=== PATIENT | male | born 1965 | race African-American/Black ===

== ENCOUNTER 2020-05-23 14:23 | Emergency (ER) | payer OTHER, SELFPAY ==
--- NOTE | ~2020-05-23 | XR_ITS ---
EXAMINATION: XR chest 1V portable INDICATION: Transient alteration of awareness TECHNIQUE: Portable AP chest at 1733 hours COMPARISON: None available FINDINGS: The lungs are free of acute opacities. There is no pleural effusion or pneumothorax. The he art size is normal. There are partially imaged changes of cervical fusion. IMPRESSION: 1. No acute cardiopulmonary abnormality. Reviewed, dictated and finalized at location A. NCT COMMUNICATIONS FACULTY MEMBER
--- NOTE | ~2020-05-23 | CT_ITS ---
EXAMINATION: CT brain wo con DATE: 05/23/2020 18:09 INDICATION: Altered mental status TECHNIQUE: Computed tomography (CT) of the head was performed without intravenous contrast. Sagittal and coronal reconstructions were performed. The mA was adjusted according to patient size. Iterative reconstruction technique was employed. The dose-length product was 681.00 mGy-cm. COMPARISON: None FINDINGS: No acute intracranial hemorrhage, acute infarction or abnormal extra axial fluid collection. There is mild scattered white matter hypoattenuation consistent with chronic small vessel ischemic disease. Ventricles are normal and symmetric. No mass/mass effect. The orbits, paranasal sinuses and mastoid a ir cells are normal. IMPRESSION: 1. No acute intracranial process. 2. Mild scattered white matter hypoattenuation consistent with chronic small vessel ischemic disease. Reviewed, dictated and finalized at location A. EWORK DEVELOPER IMPRESSION: 1. No acute intracranial process. 2. Mild scattered white matter hypoattenuation consistent with chronic small ve ssel ischemic disease.
[2020-05-23 14:23] VITALS: BP 95/60; PULSE 60; RESP 10; O2SAT 99
--- NOTE | 2020-05-23 14:28 | ECG_ITS ---
Measurements Intervals [place] Rate: 59 P: 63 [place]: 161 QRS: -52 QRSD: 131 T: 70 QT: 399 QTc: 398 Interpretive Statements SINUS BRADYCARDIA INTRAVENTRICULAR CONDUCTION DELAY BORDERLINE ST-T WAVE ABNORMALITY- HIGH LATERAL LEADS BASELINE ARTIFACT- I, II, AVR, AVL BORDERLINE ECG Electronically Signed On 05-23-2020 16:02:02 MECHANICAL ASSEMBLER by Chadwick Banks D.O.
[2020-05-23 14:35] LABS: Glucose Point of Care 120 (65-105)
[2020-05-23 15:10] VITALS: BP 122/86; PULSE 56; RESP 12; O2SAT 98
[2020-05-23] MEDS: SODIUM CHLORIDE 0.9% IV 1,000 ML 999 ML IV CONT ×2 (15:10→16:57)
--- NOTE | 2020-05-23 15:27 | PC.NURSE ---
Patient refusing to have blood drawn or urine collected at this time. patient is alert x3 at this time
--- NOTE | 2020-05-23 15:56 | ED.GENADULT ---
HPI - General Adult General Chief complaint: Altered Mental Status Stated complaint: Altered mental status Time Seen by Provider: 05/23/20 14:40 History of Present Illness HPI narrative: Patient is a 54-year-old gentleman who presents the emergency department chief complaint of altered mental status. Patient was found to have a blood sugar of 74 he was given dextrose in the field by EMS on arrival to the emergency department currently the patient states he has no complaints. Patient actually states that he wishes to go home and does not wish to have any further testing. Related Data Allergies Allergy/AdvReac Type Severity Reaction Status Date / Time No Known Allergies Allergy Unverified 10/15/16 15:33 Review of Systems Review of Systems: Narrative: A 10 system review of systems was completed on the patient and is negative except for what is stated in the HPI. Nursing and ancillary documentation was reviewed. PMFSH Comments Patient has prior history of diabetes history of heart failure CVA reflux spondylolisthesis Social history the patient is currently a resident of a local [facility] doing rehab Exam Narrative: Exam Narrative: GENERAL: Well-appearing, well-nourished, and in no acute distress. HEAD: Normocephalic, atraumatic. EYES: PERRLA and EOMI. ENT: Nares clear, no rhinorrhea or epistaxis. Mucous membranes moist. NECK: Supple. CHEST: Clear to auscultation. No respiratory distress. HEART: Regular rate and rhythm. No murmur heard. Normal peripheral pulses. ABDOMEN: Soft, nontender, nondistended, normal active bowel sounds. EXTREMITIES: Normal range of motion. No edema. SKIN: Warm, dry, no rash. NEURO: No focal deficits. Alert and oriented x3. PSYCH: Normal mood and affect. Course Vital Signs Vital signs: Vital Signs Pulse Rate 60 05/23/20 14:23 Respiratory Rate 10 L 05/23/20 14:23 Blood Pressure 95/60 L 05/23/20 14:23 Pulse Oximetry 99 05/23/20 14:23 Pulse Rate 78 05/23/20 18:42 Respiratory Rate 18 05/23/20 18:42 Blood Pressure 91/69 L 05/23/20 18:42 Pulse Oximetry 98 05/23/20 18:42 Medical Decision Making Vital Signs Vital Signs: Vital Signs Pulse Rate 60 05/23/20 14:23 Respiratory Rate 10 L 05/23/20 14:23 Blood Pressure 95/60 L 05/23/20 14:23 Pulse Oximetry 99 05/23/20 14:23 Pulse Rate 78 05/23/20 18:42 Respiratory Rate 18 05/23/20 18:42 Blood Pressure 91/69 L 05/23/20 18:42 Pulse Oximetry 98 05/23/20 18:42 Lab Data Result diagrams: 05/23/20 17:11 05/23/20 17:11 Labs: Lab Results 05/23/20 05/23/20 05/23/20 Range/Units 14:31 16:53 16:53 WBC (4.5-10.0) K/mm3 RBC (4.6-6.20) M/mm3 Hgb (14.0-18.0) g/dL Hct (42.0-52.0) % MCV (80-100) fl MCH (26-34) pg MCHC (32-36) g/dl RDW (11.5-14.5) % Plt Count (150-375) k/mm3 MPV (7.4-10.4) fl Immature Gran % (Auto) (0-0.5) % Neut % (Auto) (45.5-73.1) % Lymph % (Auto) (18.3-44.2) % [place] % (Auto) (2.6-8.5) % Eos % (Auto) (0-4.4) % Baso % (Auto) (0.2-1.2) % Lymph # (Auto) (0.9-3.2) K/mm3 [place] # (Auto) (0.1-0.6) K/mm3 Eos # (Auto) (0-0.3) K/mm3 Baso # (Auto) (0.0-0.1) K/mm3 Abs Immat Gran (auto) (0.00-0.031) K/mm3 Absolute Neuts (auto) (1.3-6.7) K/mm3 Absolute Nucleated RBC (0.0-0.012) K/mm3 Nucleated RBC % (0.0-0.2) % Sodium (137-145) mmol/L Potassium (3.4-5.0) mmol/L Chloride (98-107) mmol/L Carbon Dioxide (22-30) mmol/L Anion Gap (8-16) mmol/L BUN (9-20) mg/dL Creatinine (0.7-1.3) mg/dL Estim Creat Clear Calc ml/min Estimated GFR (59 - ) Glucose (75-110) mg/dL POC Capillary Glucose 120 H (65-105) mg/dl Calcium (8.4-10.2) mg/dL Total Bilirubin (0.2-1.3) mg/dL AST (17-59) U/L ALT (4-50) U/L Alkaline Phosphatase (38-126) U/L Troponin I (0.000-0.034) ng/mL
[2020-05-23 17:04] LABS: Add Urine Microscopic? YES; Appearance Urine Cloudy (Clear); Bacteria Urine Trace /hpf; Bilirubin Urine 1+ (Negative); Blood Urine 1+ (Negative); Color Urine Amber (Yellow); Glucose Urine UA Negative (Negative); Ketones Urine Negative (Negative); Leukocyte Esterase Ur 3+ LEU/UL (Negative); Mucus Urine Rare /lpf; Nitrate Urine Negative (Negative); Protein Urine 2+ mg/dL (Negative); Squamous Epithelial Cell Urine Occasional /hpf (Few); WBC Urine >75 /hpf
[2020-05-23 17:15] LABS: Amphetamine Screen Urine Negative (Negative); Barbiturate Screen Urine Negative (Negative); Benzodiazepines Screen Urine Negative (Negative); Cannabinoid Screen Urine Positive (Negative); Cocaine Screen Urine Negative (Negative); Methadone Screen Urine Negative (Negative); Opiate Screen Urine Positive (Negative); Phencyclidine Screen Urine Negative (Negative)
[2020-05-23 17:17] LABS: Basophils Percent Auto 0.3 % (0.2-1.2); Eosinophils Absolute Auto 0.1 K/mm3 (0-0.3); Eosinophils Percent Auto 0.9 % (0-4.4); Hematocrit 34.6 % (42.0-52.0); Hemoglobin 10.8 g/dL (14.0-18.0); Immature Granulocyte Absolute 0.04 K/mm3 (0.00-0.031); Immature Granulocyte Percent A 0.3 % (0-0.5); Lymphocytes Absolute Auto 1.72 K/mm3 (0.9-3.2); Lymphocytes Percent Auto 14.7 % (18.3-44.2); Mean Corpuscular HGB Conc 31.2 g/dl (32-36); Mean Corpuscular Hemoglobin 29.4 pg (26-34); Mean Corpuscular Volume 94.3 fl (80-100); Mean Platelet Volume 10.9 fl (7.4-10.4); Monocytes Absolute Auto 0.9 K/mm3 (0.1-0.6); Monocytes Percent Auto 7.9 % (2.6-8.5); Neutrophils Absolute Auto 8.9 K/mm3 (1.3-6.7); Neutrophils Percent Auto 75.9 % (45.5-73.1); Platelet Count Result 238 k/mm3 (150-375); Red Blood Count 3.67 M/mm3 (4.6-6.20); Red Cell Distribution Width 14.8 % (11.5-14.5); White Blood Count 11.7 K/mm3 (4.5-10.0)
[2020-05-23 17:30] LABS: Alanine Aminotransferase 23 U/L (4-50); Alkaline Phosphatase 84 U/L (38-126); Anion Gap 7 mmol/L (8-16); Aspartate Amino Transferase 49 U/L (17-59); Bilirubin,Total 0.8 mg/dL (0.2-1.3); Blood Urea Nitrogen 39 mg/dL (9-20); Calcium 9.3 mg/dL (8.4-10.2); Carbon Dioxide 26 mmol/L (22-30); Chloride 108 mmol/L (98-107); Estimated CRCL calculation 33 ml/min; Estimated Glomerular Filt Rate 29; Glucose 92 mg/dL (75-110); Potassium 5.1 mmol/L (3.4-5.0); Sodium 141 mmol/L (137-145)
[2020-05-23] MEDS: SODIUM CHLORIDE 0.9% IV 1,000 ML 1000 ML (18:02)
[2020-05-23 18:17] VITALS: BP 86/44; PULSE 72; RESP 18; O2SAT 98
[2020-05-23 18:20] LABS: Troponin I < 0.012 ng/mL (0.000-0.034)
[2020-05-23 18:25] LABS: Ethanol < 10 mg/dL (<10)
[2020-05-23 18:42] VITALS: BP 91/69; PULSE 78; RESP 18; O2SAT 98
--- NOTE | 2020-05-23 18:58 | PC.NURSE ---
Patient ripped out IV at this time, reporting that he did not need the IV any more.
[2020-05-23 18:59] VITALS: BP 109/59; PULSE 74; RESP 17; O2SAT 98
--- NOTE | 2020-05-23 19:03 | PC.NURSE ---
Lizzy attempted to call to give report, no answer at this time.
[2020-05-23] MEDS: WATER, STERILE FOR INJECTION 10 ML VIAL XX (19:21)
== END 2020-05-23 19:20 ==
PROVIDERS: Emergency Provider Emergency Medicine; PCP Internal Medicine
DX: N39.0 Urinary tract infection, site not specified (principal); E11.649 Type 2 diabetes mellitus with hypoglycemia without coma; Z86.73 Personal history of transient ischemic attack (TIA), and cerebral infarction without residual deficits; I50.9 Heart failure, unspecified
CPT/HCPCS: 36415; 70450; 71045; 80053; 80307; 81001; 82948; 84484; 85025; 87077; 87086; 87088; 87186; 93005; 96360; 96361; 99284; J0696; J7030

== ENCOUNTER 2020-08-08 16:22 | Emergency (ER) | payer OTHER, SELFPAY ==
--- NOTE | ~2020-08-08 | US_ITS ---
EXAMINATION: US arterial ankle brachial ind DATE: 08/08/2020 17:51 INDICATION: Peripheral vascular disease risk factors of diabetes, hypercholesterolemia and smoking wh o presents with lower limb pain and ulcerations at the left castillo and great toes. TECHNIQUE: Segmental pressures and plethysmographic and Doppler waveforms of the brachial and lower e xtremity arteries were obtained. COMPARISON: None. FINDINGS: Right and left brachial artery pressures of 177 mm Hg and 164 mm Hg, respectively, are concordant (no rmal difference <= 30 mmHg). The right ankle-brachial index (CATARINA) is 0.54 (normal >= 0.9-1.0). The right great toe-brachial index (TBI) is 0.69 (normal >= 0.65). Arterial Doppler waveforms are biphasic and parvus et tardus with bro adened systolic peaks and delayed upstrokes at the right posterior tibial and dorsalis pedis arteries . The left CATARINA is 0.55. The left TBI is 0.70. Arterial Doppler waveforms are biphasic with borderline u pstrokes. IMPRESSION: 1. Discordant findings with moderately decreased bilateral ABIs but normal bilateral TBIs. Although T BIs are generally considered less susceptible to artifactual increased due to medial wall calcificati on, the arterial waveforms particularly on the right would indicate significant arterial occlusive di sease. Reviewed, dictated and finalized at location A. IMPRESSION: 1. Discordant findings with moderately decreased bilateral ABIs but normal bila teral TBIs. Although TBIs are generally considered less susceptible to artifact ual increased due to medial wall calcification, the arterial waveforms particul trish on the right would indicate significant arterial occlusive disease.
--- NOTE | ~2020-08-08 | XR_ITS ---
EXAMINATION: XR foot RT min 3V DATE: 08/08/2020 18:36 INDICATION: Diabetic ulceration TECHNIQUE: Dorsoplantar, two oblique and lateral views of the right foot were obtained. COMPARISON: None. FINDINGS: Alignment is normal. No fracture. Joint spaces are normal. Diffuse osteopenia. No evident osteolysis. Soft tissues are unremarkable. IMPRESSION: 1. Diffuse osteopenia. No acute osseous abnormality. Reviewed, dictated and finalized at location A.
--- NOTE | ~2020-08-08 | US_ITS ---
EXAMINATION: US venous doppler [facility] DATE: 08/08/2020 17:52 INDICATION: Lower limb pain TECHNIQUE: Grayscale ultrasound images without and with compression and Doppler ultrasound images of the bilateral lower extremity veins were obtained. COMPARISON: None. FINDINGS: The visualized portions of right common femoral vein, profunda (deep) femoral vein, femoral vein, pop liteal vein, posterior tibial veins, peroneal veins, gastrocnemius vein and greater saphenous vein ou tflow are patent. The visualized portions of left common femoral vein, profunda femoral vein, femoral vein, popliteal v ein, posterior tibial veins, peroneal veins, gastrocnemius vein and greater saphenous vein outflow ar e patent. IMPRESSION: 1. No deep venous thrombosis in either lower limb. Reviewed, dictated and finalized at location A.
[2020-08-08 16:31] VITALS: BP 134/111; PULSE 59; RESP 14; TEMP 36.6; O2SAT 99
--- NOTE | 2020-08-08 16:40 | PC.NURSE ---
ED MD at bedside for assessment, arrives from [place] for ?bilat arterial doppler studies to evaluate for PAD, pt has non-healing ulcer to outer R foot, bilat pedal pulses present and pt can feel sensation. Pt is paraplegic, uses electric WC to get around. Pt denies SOB, non-labored respirations. Pt declines changing into a gown, ED MD aware
--- NOTE | 2020-08-08 17:13 | ED.EXTPRO ---
HPI - Extremity Problem General Chief complaint: Extremity Problem,Nontraumatic Stated complaint: poss blood clot Time Seen by Provider: 08/08/20 16:34 Source: patient Mode of arrival: EMS History of Present Illness HPI Narrative: This is a 55 year old paraplegic male who presents from [place] for evaluation of an abnormal arterial doppler .Patient is unsure about why he is in ER. Patient reports he has long standing bilateral leg pain that has been present for years. His pain is worse with position. He denies chest pain or sob. He does have leg numbness and arm numbness weakness due to cervical spine surgery years ago. He is currently being evaluated by wound care for a wound to right lateral foot. Related Data Allergies Allergy/AdvReac Type Severity Reaction Status Date / Time No Known Allergies Allergy Unverified 10/15/16 15:33 Review of Systems Review of Systems: All systems reviewed & are unremarkable except as noted in HPI and below PMFSH Past Medical History Medical History (Updated 08/08/20 @ 19:39 by Jeanette Cazares MD) Depression Diabetes mellitus GERD (gastroesophageal reflux disease) Hypertension Paraplegia Surgical History Surgical History (Updated 08/08/20 @ 19:33 by Jeanette Cazares MD) H/O neck surgery Social History Social History (Updated 08/08/20 @ 19:34 by Jeanette Cazares MD) Smoking status: Current every day smoker Exam Const: General: no acute distress and alert Orientation/consciousness: patient oriented x3 Eyes: EOM: EOMs intact bilaterally Resp: Effort & Inspection: normal respiratory effort and no retractions Auscultation: clear to auscultation bilaterally Cardio: Rate: regular rate Rhythm: regular rhythm Heart sounds: no murmurs GI: GI Palp: Yes Soft to palpation, No Tenderness to palpation present (GI) and No Guarding due to palpation present (GI) Auscultation: normal bowel sounds Skin: General skin exam: normal color Rashes: no rashes Neuro: General: patient oriented x3 Other: paraplegic, movement for right arm, Extrem: Other: bilateral leg swelling, able to doppler bilateral DP, PT, bilateral feet are warm , 3 cm right lateral foot ulceration, no drainage Course Consultations Consultation #1: I spoke with Dr. Kvng smith about patient. I discussed patient does have arterial vascular disease in which he needs outpatient evaluation by vascular surgery. He has not acute disease at this time. He has pulses in bilateral feet. Date: 08/08/20 Time: 18:45 Vital Signs Vital signs: Vital Signs Temperature 97.9 F 08/08/20 16:31 Pulse Rate 59 L 08/08/20 16:31 Respiratory Rate 14 08/08/20 16:31 Blood Pressure 134/111 H 08/08/20 16:31 Pulse Oximetry 99 08/08/20 16:31 Temperature 97.9 F 08/08/20 16:31 Pulse Rate 65 08/08/20 17:50 Respiratory Rate 14 08/08/20 17:50 Blood Pressure 134/111 H 08/08/20 16:31 Pulse Oximetry 100 08/08/20 17:50 MDM - Extremity (Nontraumatic) Lab Data Result diagrams: 08/08/20 18:09 08/08/20 18:09 Labs: Lab Results 08/08/20 08/08/20 08/08/20 Range/Units 18:09 18:09 18:09 WBC 6.9 (4.5-10.0) K/mm3 RBC 3.94 L (4.6-6.20) M/mm3 Hgb 11.8 L (14.0-18.0) g/dL Hct 36.6 L (42.0-52.0) % MCV 92.9 (80-100) fl MCH 29.9 (26-34) pg MCHC 32.2 (32-36) g/dl RDW 13.2 (11.5-14.5) % Plt Count 240 (150-375) k/mm3 MPV 10.8 H (7.4-10.4) fl Immature Gran % (Auto) 0.1 (0-0.5) % Neut % (Auto) 49.9 (45.5-73.1) % Lymph % (Auto) 37.4 (18.3-44.2) % [place] % (Auto) 9.0 H (2.6-8.5) % Eos % (Auto) 3.3 (0-4.4) % Baso % (Auto) 0.3 (0.2-1.2) % Lymph # (Auto) 2.59 (0.9-3.2) K/mm3 [place] # (Auto) 0.6 (0.1-0.6) K/mm3 Eos # (Auto) 0.2 (0-0.3) K/mm3 Baso # (Auto) 0.0 (0.0-0.1) K/mm3 Abs Immat Gran (auto) 0.01 (0.00-0.031) K/mm3 Absolute Neuts (auto) 3.5 (1.3-6.7)
--- NOTE | 2020-08-08 17:40 | PC.NURSE ---
Pt returned from imaging, states I think they said I'll need surgery to open up my arteries , non-labored respirations and denies SOB
[2020-08-08 17:50] VITALS: PULSE 65; RESP 14; O2SAT 100
--- NOTE | 2020-08-08 18:04 | PC.NURSE ---
Pt trying to leave to smoke a cigarette outside, states he cannot stay in bed. Educated pt and he received medications that made him sleepy and not safe to ambulate. Receiving banana bag
[2020-08-08 18:15] LABS: Basophils Percent Auto 0.3 % (0.2-1.2); Eosinophils Absolute Auto 0.2 K/mm3 (0-0.3); Eosinophils Percent Auto 3.3 % (0-4.4); Hematocrit 36.6 % (42.0-52.0); Hemoglobin 11.8 g/dL (14.0-18.0); Immature Granulocyte Absolute 0.01 K/mm3 (0.00-0.031); Immature Granulocyte Percent A 0.1 % (0-0.5); Lymphocytes Absolute Auto 2.59 K/mm3 (0.9-3.2); Lymphocytes Percent Auto 37.4 % (18.3-44.2); Mean Corpuscular HGB Conc 32.2 g/dl (32-36); Mean Corpuscular Hemoglobin 29.9 pg (26-34); Mean Corpuscular Volume 92.9 fl (80-100); Mean Platelet Volume 10.8 fl (7.4-10.4); Monocytes Absolute Auto 0.6 K/mm3 (0.1-0.6); Neutrophils Absolute Auto 3.5 K/mm3 (1.3-6.7); Neutrophils Percent Auto 49.9 % (45.5-73.1); Platelet Count Result 240 k/mm3 (150-375); Red Blood Count 3.94 M/mm3 (4.6-6.20); Red Cell Distribution Width 13.2 % (11.5-14.5); White Blood Count 6.9 K/mm3 (4.5-10.0)
[2020-08-08 18:24] LABS: Alanine Aminotransferase 15 U/L (4-50); Albumin Level 3.6 g/dL (3.5-5.1); Alkaline Phosphatase 69 U/L (38-126); Anion Gap 4 mmol/L (8-16); Aspartate Amino Transferase 20 U/L (17-59); Bilirubin,Total 0.2 mg/dL (0.2-1.3); Blood Urea Nitrogen 14 mg/dL (9-20); Calcium 8.9 mg/dL (8.4-10.2); Carbon Dioxide 31 mmol/L (22-30); Chloride 106 mmol/L (98-107); Creatine Kinase 90 U/L (55-170); Estimated CRCL calculation 97 ml/min; Estimated Glomerular Filt Rate > 60; Glucose 165 mg/dL (75-110); Potassium 3.8 mmol/L (3.4-5.0); Sodium 141 mmol/L (137-145)
[2020-08-08 18:27] LABS: Partial Thromboplastin Time 32.1 SECONDS (22.3-36.8)
[2020-08-08 18:39] LABS: Prothrombin Time 13.5 Seconds (11.1-14.7)
[2020-08-08 20:00] VITALS: BP 173/79; PULSE 58; RESP 16; O2SAT 100
--- NOTE | 2020-08-08 20:37 | PC.NURSE ---
made contact with [employer] [employer] and [facility] to transfer pt back to [facility]. both companies decline. st accepted with [facility]
[2020-08-08] MEDS: HYDROcodone/acetaminophen (*CRX) 10-325 MG TABLET 1 TAB PO (21:24)
--- NOTE | 2020-08-08 21:58 | PC.NURSE ---
maciel has arrived and is aware pt is going to [place]
[2020-08-08 22:08] VITALS: BP 149/81; PULSE 68; RESP 16; O2SAT 98
== END 2020-08-08 22:10 ==
PROVIDERS: Emergency Provider General Practice; PCP Internal Medicine
DX: I70.203 Unspecified atherosclerosis of native arteries of extremities, bilateral legs (principal); E11.51 Type 2 diabetes mellitus with diabetic peripheral angiopathy without gangrene; G82.20 Paraplegia, unspecified; K21.9 Gastro-esophageal reflux disease without esophagitis; I10 Essential (primary) hypertension; F17.200 Nicotine dependence, unspecified, uncomplicated; M85.871 Other specified disorders of bone density and structure, right ankle and foot
CPT/HCPCS: 36415; 73630; 80053; 82550; 85025; 85610; 85730; 93922; 93970; 99283; 99284; A9270

== ENCOUNTER 2022-01-20 01:42 | Inpatient (IN) | payer OTHER, SELFPAY ==
[2022-01-20] VITALS (52 sets, daily range): BP systolic 98–172; BP diastolic 52–100; PULSE 57–113; RESP 9–24; TEMP 36.4–37; O2SAT 94–100; BMI 28.3
--- NOTE | 2022-01-20 | ECHO_ITS ---
Patient Info Name: Jas Rodriguez Age: 56 years : 1965 Gender: Male Ht: 72 in Wt: 208 lbs BSA: 2.21 m2 HR: 73 bpm BP: 148 / 80 mmHg Heart Rhythm: Sinus Rhythm Technical Quality: Good Exam Date: 01/20/2022 4:15 PM Exam Location: [facility] Card Pulmonary Patient Status: Inpatient Admit Date: 01/20/2022 Staff Ordering Physician: Tori Sotelo NP Trouble Clerk: Toribio Cota RDCS Attending Provider: Tracie Munson MD Referring Physician: Deepak WOODRUFF; Exam Type: CA echo doppler color flow Study Info Indications - CVA Complete two-dimensional, color flow and Doppler transthoracic echocardiogram is performed. Summary 1. Complete two-dimensional, color flow and Doppler transthoracic echocardiogram is performed. 2. Normal left ventricular size with mild concentric left ventricular hypertrophy. Good systolic function of all segments with ejection fraction greater than 70%. Grade 2 diastolic dysfunction is present. 3. No significant valve disease. 4. Normal sinus rhythm. Left Ventricle Left ventricular chamber dimension is normal. Left ventricular systolic function is normal, estimated at >70%. There is mildly increased left ventricular wall thickness. Left ventricular septal wall motion is normal. The left ventricular diastolic function is grade II diastolic dysfunction. Right Ventricle Right ventricular chamber dimension is normal. Right ventricular systolic function is normal. Left Atria Left atrial chamber dimension is mildly enlarged. Right Atria Right atrial chamber dimension is normal. Aortic Valve The aortic valve is trileaflet. There is mild aortic valve sclerosis. There is no aortic valve stenosis. There is no aortic valve regurgitation. Pulmonic Valve The pulmonic valve is normal. There is no pulmonic valve stenosis. There is no pulmonic regurgitation. Mitral Valve The mitral valve has normal leaflets. There is no mitral valve stenosis. There is no mitral valve regurgitation. Tricuspid Valve The tricuspid valve leaflets are normal. There is no significant tricuspid valve stenosis. There is no tricuspid valve regurgitation. No pulmonary hypertension, estimated pulmonary arterial systolic pressure is Empty. Pericardium/Pleural The pericardium appears normal. There is no pericardial effusion. Inferior Vena Cava Not well visualized inferior vena cava with >50% collapse upon inspiration consistent with Empty right atrial pressure, Empty. Aorta The aortic root size at the sinus of Valsalva is normal. The prox ascending aorta size is normal. Left Ventricular Outflow Tract Name Value Normal LVOT 2D LVOT Diameter 2.0 cm LVOT Doppler LVOT Peak Gradient 4 mmHg LVOT Mean Gradient 2 mmHg LVOT VTI 23 cm LVOT VTI/AV VTI Ratio 0.9 LVOT Stroke Volume 73 ml LVOT CO 6.1 l/min LVOT CI 2.8 l/min/m2 Mitral Valve ----
--- NOTE | ~2022-01-20 | CT_ITS ---
EXAMINATION: CT abdomen pelvis wo con DATE: 01/20/2022 05:43 INDICATION: Renal failure. TECHNIQUE: Computed tomography (CT) of the abdomen and pelvis was performed without intravenous contr ast. Automated exposure control and iterative reconstruction technique were employed. The dose-length product was 1260.45 mGy-cm. COMPARISON: None. FINDINGS: The visualized portions of the lung bases demonstrate mild atelectasis. No pleural effusion . The heart size is normal. No pericardial effusion. The liver, gallbladder, spleen, pancreas, and ad renal glands are normal. The kidneys are normal in size. No hydronephrosis. There is no urolithiasis. Stool distends the rectum, which demonstrates wall thickening, consistent with stercoral colitis. Th ere is diverticulosis of the colon without evidence of diverticulitis. The appendix is normal. There are no pathologically enlarged lymph nodes. There is no free intraperitoneal fluid. There is a left i nguinal hernia containing fat. There is mild lumbar spondylosis. IMPRESSION: 1. No hydronephrosis. 2. Stercoral colitis. Reviewed, dictated and finalized at location A.
--- NOTE | ~2022-01-20 | XR_ITS ---
EXAMINATION: XR chest 1V portable DATE: 01/23/2022 05:54 INDICATION: Acute kidney injury. Chest pain. TECHNIQUE: A single frontal view of the chest was obtained. COMPARISON: Chest single view 01/20/2022, CT abdomen and pelvis 01/20/2022 FINDINGS: There is mild atelectasis in the lower lung zones. No pleural effusion or pneumothorax. The heart size is normal. IMPRESSION: 1. Mild atelectasis in the lower lung zones. Reviewed, dictated and finalized at location A.
--- NOTE | ~2022-01-20 | XR_ITS ---
EXAMINATION: XR chest 1V portable DATE: 01/20/2022 02:14 INDICATION: Altered mental status. TECHNIQUE: A single frontal view of the chest was obtained. COMPARISON: Chest single view 05/23/2020, CT abdomen and pelvis 01/20/2022 FINDINGS: There is mild atelectasis in the lower lung zones. No pleural effusion or pneumothorax. The heart size is normal. IMPRESSION: 1. Mild atelectasis in the lower lung zones. Reviewed, dictated and finalized at location A.
--- NOTE | ~2022-01-20 | XR_ITS ---
EXAMINATION: XR barium swallow modified DATE: 01/21/2022 09:19 INDICATION: Difficulty eating TECHNIQUE: Modified barium esophagram was performed by myself who administered fluoroscopy, in conju nction with speech pathologist who administered barium in varying consistencies as per speech patholo gist documentation. This was recorded on tape. A single fluoroscopic spot image was recorded. Fluoros copy exposure time was 1.3 minutes. The DAP for this procedure was 1.811 Gycm2. FINDINGS: Oral stage: Adequate function. Pharyngeal phase: Adequate function. Laryngeal penetration: None. Aspiration: None. Laryngeal sensitivity: Not applicable. IMPRESSION: Unremarkable modified barium swallow. Please refer to speech pathologist findings and [facility] feeding recommendations. Reviewed, dictated and finalized at location A. IMPRESSION: Unremarkable modified barium swallow. Please refer to speech pathol ogist findings and specific feeding recommendations.
--- NOTE | ~2022-01-20 | NM_ITS ---
EXAMINATION: NM renal flow and function DATE: 01/23/2022 15:23 INDICATION: Acute kidney injury with worsening. TECHNIQUE: 8 mCi Tc-99m MAG3 was administered IV. The patient was scanned in the supine position. A posterior abdominal radionuclide angiogram was obtained. A subsequent time course of static images of the kidneys, ureters, and bladder was obtained. COMPARISON: CT abdomen and pelvis 01/20/2022 FINDINGS: The posterior abdominal radionuclide angiogram and sequential static images show normal siz e, position, and morphology of the kidneys. Peak renal parenchymal uptake was 1 min in right kidney a nd 2 min in left kidney (normal peak 3-5 minutes). The relative early renal uptake was 60% on the ri ght and 40% on the left (<40% is abnormal). No abnormalities of the ureters or bladder are seen. T1/2 for clearance of activity from the right kidney and proximal collecting system was >>20 minutes. T1/2 for clearance of activity from the left kidney and proximal collecting system was >>20 minutes. IMPRESSION: 1. Symmetric kidney function. 2. Delayed contrast clearance bilaterally, consistent with decreased renal function. Reviewed, dictated and finalized at location A. IMPRESSION: 1. Symmetric kidney function. 2. Delayed contrast clearance bilaterally, consistent with decreased renal fun ction.
--- NOTE | ~2022-01-20 | XR_ITS ---
EXAMINATION: XR abdomen/kub 1V DATE: 01/23/2022 10:21 INDICATION: Stercoral colitis TECHNIQUE: A supine view of the abdomen on 2 radiographs was obtained. COMPARISON: CT dated 01/20/2022 FINDINGS: 7.5 cm diameter ball of stool at the rectum. There is small amount of oral contrast material scattere d throughout the colon likely due to a prior modified barium swallow study. Contrast delineates multi ple colonic diverticula but primarily along the ascending colon. No dilated loops of gas-filled small bowel to suggest obstruction. Visualized lung bases are clear. IMPRESSION: 1. Persistent 7.5 cm diameter ball of stool at the rectum. No bowel obstruction. 2. Diverticulosis. Reviewed, dictated and finalized at location B. IMPRESSION: 1. Persistent 7.5 cm diameter ball of stool at the rectum. No bowel obstruction . 2. Diverticulosis.
--- NOTE | ~2022-01-20 | MR_ITS ---
EXAMINATION: MR brain/brain stem wo con DATE: 01/21/2022 09:46 INDICATION: Lethargy. TECHNIQUE: Magnetic resonance imaging (MRI) of the brain and brainstem was performed without intraven ous contrast. COMPARISON: Head CT 01/20/2022 FINDINGS: There are scattered areas of nonspecific increased T2-weighted signal intensity in the cere bral white matter and kimi. There is no intracranial hemorrhage, acute infarction, or abnormal intrac ranial mass lesion. There is an old lacunar infarct in left thalamus. The ventricles are normal in si ze. The orbits are normal. There is a mucous retention cyst in right maxillary sinus. There is a smal l left mastoid effusion. IMPRESSION: 1. Old lacunar infarct in left thalamus. 2. Moderate nonspecific cerebral white matter disease and pontine disease, which likely represents ch ronic small vessel ischemic disease. Reviewed, dictated and finalized at location A. IMPRESSION: 1. Old lacunar infarct in left thalamus. 2. Moderate nonspecific cerebral white matter disease and pontine disease, whic h likely represents chronic small vessel ischemic disease.
--- NOTE | ~2022-01-20 | US_ITS ---
EXAMINATION: US renal BI DATE: 01/20/2022 16:00 INDICATION: Acute renal failure TECHNIQUE: Multiple grayscale and Doppler ultrasound images of the kidneys were obtained. COMPARISON: None. FINDINGS: The right kidney measures 10.5 x 6.3 x 7.1 cm. The left kidney measures 11.3 x 5.4 x 5.6 cm . The kidneys demonstrate normal parenchymal echogenicity. There is no hydronephrosis. The bladder de monstrates diffuse wall thickening. IMPRESSION: 1. Normal kidneys without hydronephrosis. 2. Diffuse wall thickening of the urinary bladder which could reflect cystitis versus chronic outlet obstruction. Reviewed, dictated and finalized at location A.
--- NOTE | ~2022-01-20 | US_ITS ---
EXAMINATION: US carotid duplex BI DATE: 01/20/2022 16:01 INDICATION: Weakness. Encephalopathy with confusion. TECHNIQUE: Grayscale, color Doppler, and pulsed Doppler images of the cervical carotid arteries were obtained. The degree of vessel stenosis is placed in one of the following categories: normal, <50%, 5 0-69%, >=70% but less than near-occlusion, near-occlusion, or total occlusion. Note that percent sten osis relative to normal distal artery lumen diameter is indirectly measured from velocity measurement s as described by Beto, et al. Radiology 2003; 229:340-346. COMPARISON: None. FINDINGS: RIGHT: The right common carotid artery (CCA) peak systolic velocity (PSV) is 95 cm/s. The right internal car otid artery (ICA) PSV is 190 cm/s. The right ICA end-diastolic velocity (EDV) is 25 cm/s. The right I CA/CCA PSV ratio is 2.0. Grayscale and color Doppler images yield an estimate of 50-69% diameter redu ction from plaque in the ICA. The external carotid artery (ECA) PSV is 164 cm/s. There is antegrade f low in the right vertebral artery. LEFT: The left CCA PSV is 175 cm/s. The left ICA PSV is 225 cm/s. The left ICA EDV is 18 cm/s. The left ICA /CCA PSV ratio is 1.3. Grayscale and color Doppler images yield an estimate of 50-69% diameter reduct ion from plaque in the ICA. The ECA PSV is 114 cm/s. There is antegrade flow in the left vertebral ar adia. IMPRESSION: 1. 50-69% stenosis in the right internal carotid artery. 2. 50-69% stenosis in the left internal carotid artery. Reviewed, dictated and finalized at location B.
--- NOTE | ~2022-01-20 | CT_ITS ---
EXAMINATION: CT brain wo con DATE: 01/20/2022 02:20 INDICATION: Altered mental status. TECHNIQUE: Computed tomography (CT) of the head was performed without intravenous contrast. The mA wa s adjusted according to patient size. Iterative reconstruction technique was employed. The dose-lengt h product was 681.00 mGy-cm. COMPARISON: Head CT 05/23/2020 FINDINGS: There is no intracranial hemorrhage, acute infarction, or abnormal intracranial mass lesion . The ventricles are normal in size. The orbits are normal. There is mucosal thickening in the parana taye sinuses. There is a small left mastoid effusion. IMPRESSION: 1. Normal brain. Reviewed, dictated and finalized at location A. IMPRESSION: 1. Normal brain.
--- NOTE | 2022-01-20 01:47 | ECG_ITS ---
Measurements Intervals [place] Rate: 60 P: 67 TN: 152 QRS: -54 QRSD: 107 T: 29 QT: 393 QTc: 394 Interpretive Statements SINUS RHYTHM LEFT ANTERIOR FASCICULAR BLOCK [QRS AXIS <= -45, QR IN I, RS IN II] COMPARED TO ECG 05/23/2020 14:31:37 THE RATE IS FASTER Electronically Signed On 01-20-2022 13:15:20 CDT by Yudelka Hartmann M.D.
[2022-01-20 03:26] LABS: Basophils Percent Auto 0.1 % (0.2-1.2); Eosinophils Absolute Auto 0.1 K/mm3 (0-0.3); Eosinophils Percent Auto 1.6 % (0-4.4); Hematocrit 32.7 % (42.0-52.0); Hemoglobin 10.1 g/dL (14.0-18.0); Immature Granulocyte Absolute 0.03 K/mm3 (0.00-0.031); Immature Granulocyte Percent A 0.4 % (0-0.5); Lymphocytes Absolute Auto 1.86 K/mm3 (0.9-3.2); Lymphocytes Percent Auto 23.3 % (18.3-44.2); Mean Corpuscular HGB Conc 30.9 g/dl (32-36); Mean Corpuscular Hemoglobin 27.8 pg (26-34); Mean Corpuscular Volume 90.1 fl (80-100); Mean Platelet Volume 11.4 fl (7.4-10.4); Monocytes Absolute Auto 0.6 K/mm3 (0.1-0.6); Monocytes Percent Auto 7.3 % (2.6-8.5); Neutrophils Absolute Auto 5.4 K/mm3 (1.3-6.7); Neutrophils Percent Auto 67.3 % (45.5-73.1); Platelet Count Result 249 k/mm3 (150-375); Red Blood Count 3.63 M/mm3 (4.6-6.20); Red Cell Distribution Width 15.1 % (11.5-14.5)
[2022-01-20] MEDS: SODIUM CHLORIDE 0.9% IV 1,000 ML 999 ML IV CONT ×2 (03:28→05:19)
--- NOTE | 2022-01-20 03:28 | PC.NURSE ---
Dr Bailey at bedside while RN placed IV access in foot per verbal order from Dr Bailey. Tolerated well.
--- NOTE | 2022-01-20 03:35 | PC.NURSE ---
Attempted to call lab and spoke with Ruth Ann. She told me to call lab assitant. Called shop laborer and told will be few hours before labs can be obtained. Informed charge nurse, ramon, director housekeeping, and Dr Bailey
--- NOTE | 2022-01-20 03:36 | ED.WEAKNESS ---
HPI - Weakness General Chief complaint: Weakness Stated complaint: DOESN'T FEEL WELL Time Seen by Provider: 01/20/22 01:50 History of Present Illness HPI Narrative: This is a 56-year-old male with past medical history of paraplegia status post cervical spine surgery, brought in by EMS from his halfway because he doesn't feel well. He does not elaborate further. He denies chest pain, abdominal pain, vomiting, diarrhea or cough. EMS reports the patient's last known well was 3 days ago. The patient's nurse noted he seemed more lethargic than usual. Vital signs were reported as within normal limits in route with a fingerstick in the 80s. Related Data Allergies Allergy/AdvReac Type Severity Reaction Status Date / Time No Known Allergies Allergy Unverified 10/15/16 15:33 Review of Systems Review of Systems: CONSTITUTIONAL: Generalized malaise denies fever, chills, or sweats. EYES: Denies visual changes, redness, or discharge. ENT: Denies rhinorrhea, congestion, sore throat, or otalgia. CARDIOVASCULAR: Denies chest pain, palpitations, or edema. RESPIRATORY: Denies cough or dyspnea. GASTROINTESTINAL: Denies abdominal pain, nausea, vomiting, or diarrhea. GENITOURINARY: Denies dysuria or hematuria. SKIN: Denies rash or itching. MUSCULOSKELETAL: Denies back pain, joint pain, or myalgia. NEUROLOGIC: Denies headache, numbness, dizziness, or weakness. PSYCHIATRIC: Denies anxiety or depression. PMFSH Past Medical History Medical History (Updated 01/20/22 @ 07:33 by Sinan Bailey MD) Depression Diabetes mellitus GERD (gastroesophageal reflux disease) Hypertension Paraplegia Surgical History Surgical History (Updated 08/08/20 @ 19:33 by Jeanette Cazares MD) H/O neck surgery Social History Social History (Updated 08/08/20 @ 19:34 by Jeanette Cazares MD) Smoking status: Current every day smoker Exam Narrative: GENERAL: Well-developed, well-nourished, appears fatigued HEAD: Normocephalic, atraumatic. EYES: PERRLA and EOMI. pupils 2 mm and equal bilaterally ENT: Nares clear, no rhinorrhea or epistaxis. Mucous membranes moist. Oropharynx without tonsillar hypertrophy exudate or other lesions. NECK: Supple. No adenopathy or masses. No carotid bruits or JVD CHEST: Clear to auscultation. No respiratory distress. No wheezes rales or rhonchi HEART: Regular rate and rhythm. No murmur heard. Normal peripheral pulses. ABDOMEN: Soft, nontender, nondistended, normal active bowel sounds. EXTREMITIES: Strength in the bilateral upper extremities 5-/5 bilaterally the patient does not fully follow commands normal range of motion. No noted movement of the bilateral lower extremities with extension noted at the ankles; there is a healing wound noted to the superior aspect of the right great toe without purulent drainage or active bleeding no edema. SKIN: A 1 cm stage III, healing ulcer is noted over the sacrum; a fentanyl patch is noted on the anterior left abdominal skin; skin otherwise warm, dry, without rash. NEURO: No focal deficits. Alert and oriented x3. PSYCH: Normal mood and affect. Course Course Emergency Course: 03:28 - Nursing staff reports patient does not have IV access. 3 attempts were made by me with ultrasound-guided IV placement. Despite successful IV placement, all locations immediately infiltrated. Nursing staff was able to place a 22-gauge IV in the patient's foot. We will continue axis in this location with a plan to consult for PICC or midline placement. 05:29 - CT head unremarkable. Urine drug screen positive for cannabinoids. Patient negative for influenza and COVID. Chest x-ray unremarkable on my review. Troponin negative. Creatinine 5.9 with BUN of 51. Bicarb however is 23. I suspect the patient has new renal failure, however this appears to have been progressing over the past year. Potassium 5.7, however EKG is not concerning for peaked T waves. After multiple attempts I was able to contact the
[2022-01-20 03:38] LABS: Ethanol < 10 mg/dL (<10)
[2022-01-20 03:40] LABS: Alanine Aminotransferase 16 U/L (6-50); Alkaline Phosphatase 96 U/L (38-126); Anion Gap 11 mmol/L (8-16); Aspartate Amino Transferase 23 U/L (17-59); Bilirubin,Total 0.5 mg/dL (0.2-1.3); Blood Urea Nitrogen 51 mg/dL (9-20); Calcium 9.2 mg/dL (8.4-10.2); Carbon Dioxide 23 mmol/L (22-30); Chloride 107 mmol/L (98-107); Estimated CRCL calculation 19 ml/min; Estimated Glomerular Filt Rate 14; Glucose 88 mg/dL (65-110); Potassium 5.7 mmol/L (3.4-5.0); Sodium 141 mmol/L (137-145)
--- NOTE | 2022-01-20 03:42 | PC.NURSE ---
When pt arrived noted Fentanyl patch to left abdomen. Patch removed per verbal orders from Dr Bailey. Patch removed and Yanci HAWKINS noted waste.
[2022-01-20 03:44] LABS: Add Urine Microscopic? YES; Appearance Urine Cloudy (Clear); Bilirubin Urine Negative (Negative); Blood Urine Negative (Negative); Color Urine Yellow (Yellow); Glucose Urine UA Negative (Negative); Ketones Urine Negative (Negative); Leukocyte Esterase Ur Negative LEU/UL (Negative); Mucus Urine Rare /lpf; Nitrate Urine Negative (Negative); Protein Urine Negative (Negative); RBC Urine 0-2 /hpf (0-2); Specific Grav Ur 1.014 (1.001-1.035); Squamous Epithelial Cell Urine Few /hpf (Few); Urobilinogen Urine Negative mg/dL (<2.0); WBC Urine 0-3 /hpf
[2022-01-20 03:48] LABS: Troponin I 0.018 ng/mL (0.000-0.034)
[2022-01-20 03:52] LABS: Amphetamine Screen Urine Negative (Negative); Barbiturate Screen Urine Negative (Negative); Benzodiazepines Screen Urine Negative (Negative); Cannabinoid Screen Urine Positive (Negative); Cocaine Screen Urine Negative (Negative); Methadone Screen Urine Negative (Negative); Opiate Screen Urine Negative (Negative); Phencyclidine Screen Urine Negative (Negative)
--- NOTE | 2022-01-20 03:56 | PC.NURSE ---
Attempted to call [facility]. Called for baseline BUN and creatinine on pt. Was placed on hold and briefly got to talk to a Tarnella. Placed back on hold and call then ignored. Notified Dr Bailey
[2022-01-20 04:02] LABS: Influenza A QL RT-PCR Negative (Negative); Influenza B QL RT-PCR Negative (Negative); SARS-CoV-2 RNA PCR Negative
[2022-01-20 04:07] LABS: Thyroid Stimulating Hormone 0.558 uIU/mL (0.465-4.680)
--- NOTE | 2022-01-20 06:07 | PC.NURSE ---
[facility] Was told, ER is not a priority for lab. If they can help they will otherwise they won't
--- NOTE | 2022-01-20 08:32 | ADMGEN ---
This patient, Jas Rodriguez Sr., was admitted to [facility] Surg Room 302-01. Patient/family oriented to hospital policies and general routines including ID bracelet, bed and alarms, visiting hours, pain management, procedures, bathroom and other care routines, personal items, smoking policy, room service/diet, and visiting hours. Information on how to activate the Rapid Response Team has been discussed. Patient/Family are encouraged to report perceived risks to care and to ask questions if they do not understand what they are told or what they should do.
[2022-01-20 09:49] LABS: Lactic Acid Reflex 1.7 mmol/L (0.7-2.0)
--- NOTE | 2022-01-20 10:19 | PC.NURSE ---
patient very lethargic. not answering many questions. assessed as well as possible. other information taken from chart sent from [facility]
--- NOTE | 2022-01-20 11:08 | PM.CNNEP ---
Assessment and Plan Assessment and plan (1) CINDY (acute kidney injury): Code(s): N17.9 - Acute kidney failure, unspecified Status: Acute Assessment and Plan: baseline creatinine normal about a year ago unclear over what period of time renal decline occurred... CT imaging without obstruction hold diuretics and CHASIDY-I check urine electrolytes and urine eosinophils trial of IVFs follow trend of repeat labs and UOP (2) Hyperkalemia: Code(s): E87.5 - Hyperkalemia Status: Acute Assessment and Plan: presumably secondary to CINDY/ARF likely worsened by diuretics and CHASIDY-I use follow repeat labs use lokelma or other medical management if continues to rise (3) Hypertension: Code(s): I10 - Essential (primary) hypertension Status: Chronic Assessment and Plan: reasonable control for now follow trend of hemodynamics (4) Diabetes: Code(s): E11.9 - Type 2 diabetes mellitus without complications Status: Chronic Assessment and Plan: follow accuchecks glycemic control Will continue to follow. History of Present Illness Reason for Consult Consult date: 01/20/22 Reason for consult: acute renal failure Chief Complaint Chief complaint: Renal Failure History of Present Illness Narrative: The patient is a 56-year-old male with a past medical history as outlined below who presented to [facility] Emergency room from his nursing facility for further evaluation of not feeling well. It is difficult to get a full incomplete history from the patient so great majority of the information I have obtained is from review of the electronic medical record as well as discussion with the ER physician yesterday evening. The patient is self does not give any specific complaints with regard to chest pain, abdominal pain, vomiting, diarrhea, palpitations, shortness of breath, cough, or any other symptoms per se. His nursing facility did report that he seemed ill bit more lethargic than normal and given his complaints of not feeling well, he was sent to the ER for further evaluation Workup and evaluation in the emergency room demonstrated the patient to be hemodynamically stable but routine blood test demonstrated numerous abnormalities. His chemistry showed an elevated BUN and creatinine of 51 and 5.3, respectively in association with potassium of 5.7. His CBC was only remarkable for anemia with a hemoglobin of 10.1 and hematocrit 32.7. His urinalysis was unremarkable although his urine drug screen was positive for cannabinoids. CT scan of his head was unremarkable and abdominal CT scan demonstrated no evidence of obstructive uropathy or hydronephrosis but was significant for sterile coral colitis. His chest xray was otherwise unremarkable as well. The assumption was dehydration was playing a role with regard to his renal dysfunction and he was started on IV fluids with subsequent admission to the hospital for further evaluation therapy. Renal consultation was requested due to his presumed acute kidney injury/acute renal failure. Unfortunately, both his nursing facility as well as here at [facility] demonstrate a normal creatinine approximately a year ago with no intervening labs available for review. With regard to risk factors for kidney disease, he is on lisinopril as well as diuretic therapy along with metformin with a history of hypertension, diabetes, and congestive heart failure. No reported new medications, IV contrast exposure, or new antibiotics that I am aware of. No reported history of dysuria, hematuria, or CVA/flank pain ( although with his quadriplegia, I am unclear if the patient would be aware of any of the symptoms). Currently, the time my visit, he does not appear to be acute distress. Review of Systems Review of Systems: As per HPI. [facility] Past Medical History Medical History (Updated 01/21/22 @ 18:12 by Jesica Pereira
[2022-01-20] MEDS: SODIUM CHLORIDE 0.9% IV 1,000 ML 75 ML IV CONT (11:44)
[2022-01-20 12:37] LABS: Glucose Point of Care 99 mg/dl (65-105)
[2022-01-20] MEDS: NEOMYCIN/POLYMYXIN/BACITRACIN OINTMENT 15 GM TUBE 1 APPLIC TOPICAL (12:50)
--- NOTE | 2022-01-20 13:54 | PM.IMHP ---
H&P: HPI History of Present Illness Date/Time: 01/20/22 13:54 Chief Complaint: Weakness Narrative: This is a 56-year-old male patient that comes from [facility] who has a history of paraplegia status post cervical spine surgery. The [facility] because he just did not feel well. He denied any chest pain abdominal pain vomiting diarrhea or cough. His last known normal day feeling well was 3 days ago. The patient appeared to be more lethargic than normal. H&H is 10.1 and 32.7. His potassium was found to be 5.7. BUN is 51 creatinine 5.3. Patient's urine drug screen was positive for cannabinoids. Influenza a and B as well as COVID are negative. Head CT was read as normal brain. Abdominal pelvis CT was read as no hydronephrosis. Stercoral colitis. Chest x-ray was read as mild atelectasis in the lower lung zones. Patient was given IV fluids in the emergency room. Nephrology has been consulted. The patient is being admitted to observation status on the date of service of 01/20/2022. Review of Systems Review of Systems: See HPI. The patient is unable to answer questions for me at this time. All systems reviewed & are unremarkable except as noted in HPI and below Constitutional: Constitutional: Reports as per HPI and Reports no additional constitutional complaints Eyes: Eyes: Reports as per HPI and Reports no additional eye complaints ENT: Reports system reviewed and no additional complaints, except as documented and Reports Normal hearing present Cardiovascular: Cardiovascular: Reports no additional cardiovascular complaints Respiratory: Respiratory: Reports no additional respiratory complaints and Reports no additional respiratory complaints Gastrointestinal: Gastrointestinal: Reports as per HPI and Reports no additional gastrointestinal complaints Musculoskeletal: Musculoskeletal: Reports no additional musculoskeletal complaints Integumentary/Breasts: Skin/Breast: Reports system reviewed and no additional complaints, except as docu and Reports as per HPI Neurologic: Reports system reviewed and no additional complaints, except as documented, Reports as per HPI and Reports Normal hearing present Psychiatric: Psychiatric: Reports no additional psychiatric complaints and Reports as per HPI Endocrine: Endocrine: Reports no additional endocrine complaints Hematologic/Lymphatic: Hematologic/Lymphatic: Reports no additional hematologic/lymphatic complaints Allergic/Immunologic: Allergic/Immunologic: Reports no additional allergic/immunologic complaints [facility] Past Medical History Medical History (Updated 01/20/22 @ 14:14 by Tori Sotelo NP) Depression Diabetes mellitus Diastolic heart failure GERD (gastroesophageal reflux disease) History of CVA (cerebrovascular accident) Hypertension Idiopathic peripheral autonomic neuropathy Paraplegia Surgical History Surgical History (Updated 08/08/20 @ 19:33 by Jeanette Cazares MD) H/O neck surgery Family History Family History (Updated 01/20/22 @ 14:16 by Tori Sotelo NP) Unknown Unknown family medical history Social History Social History (Updated 01/20/22 @ 14:19 by Tori Sotelo NP) Social History: Sandee Rodriguez is listed as his spouse. The patient is listed as disabled. Patient's drug screen was positive for cannabis. He tells me that he smokes a pack a cigarettes a day. He is not interested in smoking cessation. The patient stated that he has 3 children. penitentiary paper state that the patient is a DNR. Smoking status: Current every day smoker Substance use type: marijuana Other substance usage details: + on admit screen Spiritual care concerns: No Meds Home Medications and Allergies Home Medications Medication Instructions Recorded Confirmed Type amino acids-protein hydrolysate 17 1 ea PO DAILY 01/20/22 01/20/22 History gram-100 kcal/30 mL oral liquid (Pro-Stat A
[2022-01-20 15:09] LABS: Alveolar/Arterial O2 Gradient 21.4 mmHg; Base Excess ABG 0.5 mEq/l (+/-2.0); Fractional Inspired Oxygen 21 %; HCO3 ABG 26.7 mEq/l (22.0-26.0); Oxygen Content ABG 14.7 %vol (16.0-22.0); Oxygen Saturation ABG 92.9 % (95.0-100.0); Oxyhemoglobin 92.1 % THb (90.0-100.0); PCO2 ABG 49.5 mmHg (35.0-45.0); PO2 ABG 69.1 mmHg (80.0-100.0); PO2 FiO2 Ratio Arterial Blood 3.29 %; Total Hemoglobin 11.3 g/dL (12.0-18.0); pH ABG 7.349 (7.350-7.450)
[2022-01-20 15:11] LABS: Site Drawn RIGHT RADIAL
[2022-01-20 16:43] LABS: Glucose Point of Care 112 mg/dl (65-105)
--- NOTE | 2022-01-20 16:51 | PC.NURSE ---
MRI ordered. patient not answering question well. Lethargic. Unable to get accurate information from patient. 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 [facility] called ([phone]) to try to obtain contact information. Talked with Halley who says that patient is normally responsible for himself and is normally alert and oriented. Halley stated that she should have a contact number for the niece and will try to find that for us and call us back.
[2022-01-20 18:14] LABS: Albumin Level 3.7 g/dL (3.5-5.1); Anion Gap 10 mmol/L (8-16); Anion Gap 9 mmol/L (8-16); Blood Urea Nitrogen 51 mg/dL (9-20); Blood Urea Nitrogen 52 mg/dL (9-20); Calcium 8.6 mg/dL (8.4-10.2); Carbon Dioxide 20 mmol/L (22-30); Carbon Dioxide 22 mmol/L (22-30); Chloride 109 mmol/L (98-107); Estimated CRCL calculation 14 ml/min; Estimated Glomerular Filt Rate 11; Estimated Glomerular Filt Rate 12; Glucose 93 mg/dL (65-110); Glucose 94 mg/dL (65-110); Phosphorus 5.4 mg/dL (2.5-4.5); Potassium 6.4 mmol/L (3.4-5.0); Sodium 139 mmol/L (137-145); Sodium 140 mmol/L (137-145)
[2022-01-20] MEDS: ALBUTEROL SULFATE NEB 2.5 MG/3 ML INH 1.25 MG INHALATION (18:33)
[2022-01-20] MEDS: SODIUM ZIRCONIUM CYCLOSILICATE 10 GM POWD.PACK PO (18:55)
[2022-01-20] MEDS: SODIUM POLYSTYRENE SULFONONATE 15 GM/60 ML BTL RECTAL (18:56)
[2022-01-20] MEDS: GABAPENTIN 400 MG CAPSULE 800 MG PO (20:52)
[2022-01-20] MEDS: HEPARIN SODIUM 5,000 UNITS/ML VIAL 5000 UNITS SUB-Q (20:52)
[2022-01-20 21:09] LABS: Glucose Point of Care 103 mg/dl (65-105)
[2022-01-20 22:09] LABS: Creatinine Urine 97.5 mg/dL; Urea Random Urine 387 MG/DL
[2022-01-20 22:12] LABS: Sodium Urine Random 65 meq/L
[2022-01-20 23:08] LABS: Anion Gap 10 mmol/L (8-16); Blood Urea Nitrogen 51 mg/dL (9-20); Calcium 8.8 mg/dL (8.4-10.2); Carbon Dioxide 23 mmol/L (22-30); Chloride 107 mmol/L (98-107); Estimated CRCL calculation 12 ml/min; Estimated Glomerular Filt Rate 10; Glucose 97 mg/dL (65-110); Potassium 5.5 mmol/L (3.4-5.0); Sodium 140 mmol/L (137-145)
[2022-01-21] VITALS (10 sets, daily range): BP systolic 116–189; BP diastolic 66–103; PULSE 65–118; RESP 18; TEMP 36.5–37.6; O2SAT 90–100
[2022-01-21 02:57] LABS: Sodium Urine Random 69 meq/L; Total Protein Urine Random 46 mg/dL; Ur Ttl Prot Creatinine Ratio 0.51 mg/mg (0-0.20)
[2022-01-21 03:07] LABS: Eosinophil Urine None Seen % (None Seen)
[2022-01-21] MEDS: SODIUM CHLORIDE 0.9% IV 1,000 ML 75 ML IV CONT ×3 (03:42→21:09)
[2022-01-21] MEDS: GABAPENTIN 400 MG CAPSULE 800 MG PO ×3 (05:17→21:08)
[2022-01-21 06:29] LABS: Basophils Percent Auto 0.2 % (0.2-1.2); Eosinophils Percent Auto 0.2 % (0-4.4); Hematocrit 32.3 % (42.0-52.0); Hemoglobin 9.9 g/dL (14.0-18.0); Immature Granulocyte Absolute 0.04 K/mm3 (0.00-0.031); Immature Granulocyte Percent A 0.4 % (0-0.5); Lymphocytes Absolute Auto 1.25 K/mm3 (0.9-3.2); Lymphocytes Percent Auto 13.9 % (18.3-44.2); Mean Corpuscular HGB Conc 30.7 g/dl (32-36); Mean Corpuscular Volume 91.2 fl (80-100); Monocytes Absolute Auto 0.5 K/mm3 (0.1-0.6); Neutrophils Absolute Auto 7.1 K/mm3 (1.3-6.7); Neutrophils Percent Auto 79.3 % (45.5-73.1); Platelet Count Result 252 k/mm3 (150-375); Red Blood Count 3.54 M/mm3 (4.6-6.20); Red Cell Distribution Width 15.2 % (11.5-14.5)
[2022-01-21 06:32] LABS: Alanine Aminotransferase 20 U/L (6-50); Albumin Level 3.8 g/dL (3.5-5.1); Alkaline Phosphatase 118 U/L (38-126); Anion Gap 12 mmol/L (8-16); Aspartate Amino Transferase 27 U/L (17-59); Bilirubin,Total 0.6 mg/dL (0.2-1.3); Blood Urea Nitrogen 50 mg/dL (9-20); Calcium 8.6 mg/dL (8.4-10.2); Carbon Dioxide 21 mmol/L (22-30); Chloride 108 mmol/L (98-107); Creatine Kinase 201 U/L (55-170); Estimated CRCL calculation 12 ml/min; Estimated Glomerular Filt Rate 9; Glucose 101 mg/dL (65-110); Magnesium 2.1 mg/dL (1.6-2.3); Phosphorus 5.5 mg/dL (2.5-4.5); Potassium 5.7 mmol/L (3.4-5.0); Sodium 141 mmol/L (137-145)
[2022-01-21 06:36] LABS: Lactic Acid Reflex 1.9 mmol/L (0.7-2.0)
[2022-01-21 07:12] LABS: Hemoglobin A1C 8.3 % (<5.7)
[2022-01-21 07:35] LABS: Thyroid Stimulating Hormone Reflex 0.395 uIU/mL (0.465-4.68)
[2022-01-21 08:03] LABS: Glucose Point of Care 114 mg/dl (65-105)
[2022-01-21 09:12] LABS: Free T4 Free Thyroxine Reflex 1.29 ng/dL (0.78-2.19)
[2022-01-21] MEDS: amLODIPine BESYLATE 5 MG TABLET 10 MG PO (10:01)
[2022-01-21] MEDS: ESCITALOPRAM OXALATE 10 MG TABLET PO (10:02)
[2022-01-21] MEDS: FAMOTIDINE 20 MG TABLET PO (10:02)
[2022-01-21] MEDS: CHOLECALCIFEROL 1,000 UNITS TABLET 4000 UNITS PO (10:02)
[2022-01-21] MEDS: CLOPIDOGREL BISULFATE 75 MG TABLET PO (10:02)
[2022-01-21] MEDS: METOPROLOL TARTRATE 12.5 MG TABLET PO (10:03)
[2022-01-21] MEDS: HEPARIN SODIUM 5,000 UNITS/ML VIAL 5000 UNITS SUB-Q ×2 (10:03→21:07)
[2022-01-21] MEDS: NEOMYCIN/POLYMYXIN/BACITRACIN OINTMENT 15 GM TUBE 1 APPLIC TOPICAL (10:03)
[2022-01-21 11:16] LABS: Total Triiodothyronine (T3) 0.69 NG/ML (0.97-1.69)
[2022-01-21 11:45] LABS: Glucose Point of Care 115 mg/dl (65-105)
--- NOTE | 2022-01-21 12:40 | PCSTNOTE ---
Please refer to the Modified Barium Swallow Evaluation in the EMR.
--- NOTE | 2022-01-21 12:52 | PCSTNOTE ---
On 01/21/22, the student, Arabella Padilla, provided care and completed [facility] documentation on this patient. I have reviewed the student's documentation and agree with the findings.
--- NOTE | 2022-01-21 14:39 | P.PNNP_ITS ---
Progress Note: A&P Assessment and Plan (1) CINDY (acute kidney injury): Code(s): N17.9 - Acute kidney failure, unspecified Status: Acute Assessment and Plan: * baseline creatinine normal about a year ago * unclear over what period of time renal decline occurred... 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??) * follow-up on serological testing * urinalysis never done * holding diuretics and CHASIDY-I * trial of IVFs -- making urine but unclear how much * bladder scan PRN * follow trend of repeat labs and UOP (2) Hyperkalemia: Code(s): E87.5 - Hyperkalemia Status: Acute Assessment and Plan: * presumably secondary to CINDY/ARF * likely worsened by diuretics and CHASIDY-I use * follow repeat labs * medical management PRN (3) Altered mental status: Code(s): R41.82 - Altered mental status, unspecified Status: Acute Assessment and Plan: * seems better at this time * imaging noted * follow trend (4) Hypertension: Code(s): I10 - Essential (primary) hypertension Status: Chronic Assessment and Plan: * reasonable control for now * follow trend of hemodynamics (5) Diabetes: Code(s): E11.9 - Type 2 diabetes mellitus without complications Status: Chronic Assessment and Plan: * follow accuchecks * glycemic control Will continue to follow. 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 Exam Narrative: General: WD/WN AA male in NAD Heart: normal S1 and S2; no rub Lungs: clear to auscultation Abdomen: soft, nontender, nondistended, positive bowel sounds Extremities: no cyanosis or clubbing; no edema Skin: warm and dry Objective Data Vital Signs Vital Signs: Vital Signs Temp Pulse Resp BP Pulse Ox O2 Del Method 01/21/22 14:00 37.6 C 72 18 116/77 100 01/21/22 12:00 102 H 01/21/22 08:00 118 H 01/21/22 04:00 37.1 C 83 18 168/66 H 100 01/21/22 04:00 117 H 01/21/22 00:00 65 01/20/22 20:00 101 H 01/20/22 23:25 80 96 Autopap 01/20/22 23:25 96 Room Air 01/20/22 20:52 Room Air 01/21/22 00:00 37.2 C 92 18 189/103 H 98 01/20/22 20:00 36.9 C 92 18 167/73 H 99 01/20/22 19:10 100 01/20/22 18:37 105 H 24 H 01/20/22 18:30 113 H 24 H Intake/Output Intake/Output: Intake & Output 01/18/22 01/19/22 01/20/22 01/21/22 23:59 23:59 23:59 23:59 Intake Total 2200 2400 Balance 2200 2400 Meds/Results Medications: Active Medications Generic Name Dose Route Start Last Admin Trade Name Freq PRN Reason Stop Dose Admin Amlodipine Besylate 10 mg 01/21/22 09:00 01/21/22 10:01 Amlodipine Besylate 5 Mg Tablet PO 10 mg DAILY MAXIMILIANO Administration Clopidogrel Bisulfate 75 mg 01/21/22 09:00 01/21/22 10:02 Clopidogrel Bisulfate 75 Mg Tablet PO
--- NOTE | 2022-01-21 14:39 | PM.PNNEP ---
Progress Note: A&P Assessment and Plan (1) CINDY (acute kidney injury): Code(s): N17.9 - Acute kidney failure, unspecified Status: Acute Assessment and Plan: baseline creatinine normal about a year ago unclear over what period of time renal decline occurred... 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??) follow-up on serological testing urinalysis never done holding diuretics and CHASIDY-I trial of IVFs -- making urine but unclear how much bladder scan PRN follow trend of repeat labs and UOP (2) Hyperkalemia: Code(s): E87.5 - Hyperkalemia Status: Acute Assessment and Plan: presumably secondary to CINDY/ARF likely worsened by diuretics and CHASIDY-I use follow repeat labs medical management PRN (3) Altered mental status: Code(s): R41.82 - Altered mental status, unspecified Status: Acute Assessment and Plan: seems better at this time imaging noted follow trend (4) Hypertension: Code(s): I10 - Essential (primary) hypertension Status: Chronic Assessment and Plan: reasonable control for now follow trend of hemodynamics (5) Diabetes: Code(s): E11.9 - Type 2 diabetes mellitus without complications Status: Chronic Assessment and Plan: follow accuchecks glycemic control Will continue to follow. 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 Exam Narrative: General: WD/WN AA male in NAD Heart: normal S1 and S2; no rub Lungs: clear to auscultation Abdomen: soft, nontender, nondistended, positive bowel sounds Extremities: no cyanosis or clubbing; no edema Skin: warm and dry Objective Data Vital Signs Vital Signs: Vital Signs Temp Pulse Resp BP Pulse Ox O2 Del Method 01/21/22 14:00 37.6 C 72 18 116/77 100 01/21/22 12:00 102 H 01/21/22 08:00 118 H 01/21/22 04:00 37.1 C 83 18 168/66 H 100 01/21/22 04:00 117 H 01/21/22 00:00 65 01/20/22 20:00 101 H 01/20/22 23:25 80 96 Autopap 01/20/22 23:25 96 Room Air 01/20/22 20:52 Room Air 01/21/22 00:00 37.2 C 92 18 189/103 H 98 01/20/22 20:00 36.9 C 92 18 167/73 H 99 01/20/22 19:10 100 01/20/22 18:37 105 H 24 H 01/20/22 18:30 113 H 24 H Intake/Output Intake/Output: Intake & Output 01/18/22 01/19/22 01/20/22 01/21/22 23:59 23:59 23:59 23:59 Intake Total 2200 2400 Balance 2200 2400 Meds/Results Medications: Active Medications Generic Name Dose Route Start Last Admin Trade Name Freq PRN Reason Stop Dose Admin Amlodipine Besylate 10 mg 01/21/22 09:00 01/21/22 10:01 Amlodipine Besylate 5 Mg Tablet PO 10 mg DAILY MAXIMILIANO Administration Clopidogrel Bisulfate 75 mg 01/21/22 09:00 01/21/22 10:02 Clopidogrel Bisulfate 75 Mg Tablet PO 75 mg DAILY MAXIMILIANO Administration Dextrose 12.5 gm 01/20/22 14:10 Dextrose 50% 25 Gm/50 Ml Syringe IV PUSH PRN PRN Hypoglycemia Protocol Escitalopram Oxalate 10 mg 01/21/22 09:00 01/21/22 10:02 Escitalopram Oxalate 10 Mg Tablet PO 10 mg DAILY MAXIMILIANO Administration Famotidine 20 mg 01/21/22 09:00 01/21/22 10:02 Famotidine 20 Mg Tablet PO 20 mg DAILY MAXIMILIANO Administration Gabapentin 800 mg 01/20/22 14:30 01/21/22 15:04 Gabapentin 400 Mg Capsule PO 800 mg Q8HR MAXIMILIANO Administration Glucagon 1 mg 01/20/22 14:10 Glucagon For Inj 1 Mg Vial IM PRN PRN Hypoglycemia Protocol Glucose 15 gm 01/20/22 14:10 Glucose Oral Gel 15 Gm Of Glucse In 37.5 Gm Tube PO PRN PRN Hypoglycemia Protocol Heparin Sodium (Porcine) 5,000 units 01/20/22 21:00 01/21/22 10:03 Hepar
--- NOTE | 2022-01-21 16:15 | ECG_ITS ---
Measurements Intervals [place] Rate: 85 P: 73 NC: 154 QRS: -52 QRSD: 110 T: 50 QT: 361 QTc: 432 Interpretive Statements SINUS RHYTHM INCOMPLETE RIGHT BUNDLE BRANCH BLOCK [90+ ms QRS DURATION, TERMINAL R IN V1/V2, 40+ ms S IN I/aVL/V4/V5/V6] LEFT ANTERIOR FASCICULAR BLOCK [QRS AXIS <= -45, QR IN I, RS IN II] COMPARED TO ECG 01/20/2022 01:50:26 NO SIGNIFICANT CHANGE Electronically Signed On 01-21-2022 19:55:08 CDT by Yudelka Hartmann M.D.
[2022-01-21 16:46] LABS: Glucose Point of Care 109 mg/dl (65-105)
[2022-01-21] MEDS: MORPHINE SULFATE (*CRX) 4 MG/ML INJ IM (16:48)
[2022-01-21 17:34] LABS: Troponin I 0.042 ng/mL (0.000-0.034)
--- NOTE | 2022-01-21 17:49 | PM.IMPN ---
Progress Note: A&P Assessment and Plan (1) CINDY (acute kidney injury): Code(s): N17.9 - Acute kidney failure, unspecified Status: Acute Assessment and Plan: Appreciate nephrology consultation, hold all nephrotoxic agents, trial of IV fluids, unsure of etiology of renal injury Renal ultrasound shows normal kidneys without hydronephrosis but does indicate diffuse wall thickening of the bladder possibly from cystitis versus chronic outlet obstruction Monitor urine output closely (2) Hypertension: Code(s): I10 - Essential (primary) hypertension Status: Chronic Assessment and Plan: Controlled with Norvasc and metoprolol (3) Hyperkalemia: Code(s): E87.5 - Hyperkalemia Status: Acute Assessment and Plan: Likely secondary to kidney injury, appreciate nephrology consultation (4) Diabetes: Code(s): E11.9 - Type 2 diabetes mellitus without complications Status: Chronic Assessment and Plan: Continue Lantus, hold metformin, Accu-Cheks with sliding scale insulin Hemoglobin A1c is 8.3 (5) Depression: Code(s): F32.9 - Major depressive disorder, single episode, unspecified Status: Acute Assessment and Plan: Continue trazodone (6) Diastolic heart failure: Code(s): I50.30 - Unspecified diastolic (congestive) heart failure Status: Acute Assessment and Plan: Monitor fluid status closely, check echo (7) GERD (gastroesophageal reflux disease): Code(s): K21.9 - Gastro-esophageal reflux disease without esophagitis Status: Acute Assessment and Plan: Continue H2 vic, add PPI (8) Altered mental status: Code(s): R41.82 - Altered mental status, unspecified Status: Acute Assessment and Plan: MRI shows no acute changes, carotid ultrasound shows 50-69% stenosis of bilateral internal carotid arteries (9) Stercoral colitis: Code(s): K52.89 - Other specified noninfective gastroenteritis and colitis Status: Acute Assessment and Plan: Will initiate a bowel regimen with Senokot S and monitor, may need GI consultation Plan 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 DVT prophylaxis with heparin GI prophylaxis with PPI Code status DNR Subjective Date/time seen: 01/21/22 17:49 Interval history: No overnight events noted. No chest pain or shortness of breath. No nausea, vomiting or diarrhea. No fevers or chills. Review of Systems Review of Systems: 12 point review of systems was assessed and was negative except as noted in the HPI Exam Narrative: General: No acute distress, sleeping, easily arousable HEENT: Atraumatic, normocephalic, mucous membranes moist CV: Regular rate and rhythm, S1, S2 Lungs: Clear to auscultation bilaterally, no rales or crackles noted, no wheezes, good air entry Abdomen: Soft, nontender, nondistended Extremities: Normal to inspection Psych: Flattened affect Objective Data Vital Signs Vital Signs: Vital Signs - 24 hr 01/20/22 18:30 01/20/22 18:37 01/20/22 19:10 Temperature Pulse Rate 113 H 105 H 100 Respiratory Rate 24 H 24 H Blood Pressure Pulse Oximetry Oxygen Delivery 01/20/22 20:00 01/21/22 00:00 01/20/22 20:52 Temperature 98.5 F 98.9 F Pulse Rate 92 92 Respiratory Rate 18 18 Blood Pressure 167/73 H 189/103 H Pulse Oximetry 99 98 Oxygen Delivery Room Air 01/20/22 23:25 01/20/22 23:25 01/20/22 20:00 Temperature Pulse Rate 80 101 H Respiratory Rate Blood Pressure Pulse Oximetry 96 96 Oxygen Delivery Room Air Autopap 01/21/22 00:00 01/21/22 04:00 01/21/22 04:00 Temperature 98.7 F Pulse Rate 65 117 H 83 Respiratory Rate 18 Blood Pressure 168/66 H Pulse Oximetry 100 Oxygen Delivery 01/21/22 08:00 01/21/22 12:00 01/21/22 14:00 Temperature 99.6 F Pulse R
[2022-01-21] MEDS: PANTOPRAZOLE SODIUM IV 40 MG VIAL IV PUSH (18:56)
[2022-01-21 20:55] LABS: Glucose Point of Care 98 mg/dl (65-105)
[2022-01-21 20:56] LABS: Troponin I 0.042 ng/mL (0.000-0.034)
[2022-01-21] MEDS: SENNA/DOCUSATE SODIUM TABLET 1 TAB PO (21:09)
[2022-01-21 23:00] LABS: Troponin I 0.042 ng/mL (0.000-0.034)
[2022-01-22] VITALS: BP 150/71; PULSE 70; PULSE 83; RESP 18; TEMP 36.4; O2SAT 98
[2022-01-22 04:00] VITALS: BP 155/9; PULSE 94; PULSE 97; RESP 18; TEMP 36.4; O2SAT 95
[2022-01-22] MEDS: GABAPENTIN 400 MG CAPSULE 800 MG PO ×3 (04:58→20:19)
[2022-01-22 06:44] LABS: Basophils Percent Auto 0.2 % (0.2-1.2); Eosinophils Percent Auto 0.3 % (0-4.4); Hematocrit 29.9 % (42.0-52.0); Hemoglobin 9.3 g/dL (14.0-18.0); Immature Granulocyte Absolute 0.04 K/mm3 (0.00-0.031); Immature Granulocyte Percent A 0.4 % (0-0.5); Lymphocytes Absolute Auto 1.81 K/mm3 (0.9-3.2); Lymphocytes Percent Auto 19.5 % (18.3-44.2); Mean Corpuscular HGB Conc 31.1 g/dl (32-36); Mean Corpuscular Hemoglobin 27.2 pg (26-34); Mean Corpuscular Volume 87.4 fl (80-100); Mean Platelet Volume 10.7 fl (7.4-10.4); Monocytes Absolute Auto 0.7 K/mm3 (0.1-0.6); Monocytes Percent Auto 7.5 % (2.6-8.5); Neutrophils Absolute Auto 6.7 K/mm3 (1.3-6.7); Neutrophils Percent Auto 72.1 % (45.5-73.1); Platelet Count Result 251 k/mm3 (150-375); Red Blood Count 3.42 M/mm3 (4.6-6.20); Red Cell Distribution Width 15.4 % (11.5-14.5); White Blood Count 9.3 K/mm3 (4.5-10.0)
[2022-01-22 07:07] LABS: Alanine Aminotransferase 18 U/L (6-50); Albumin Level 3.6 g/dL (3.5-5.1); Alkaline Phosphatase 106 U/L (38-126); Anion Gap 18 mmol/L (8-16); Aspartate Amino Transferase 26 U/L (17-59); Bilirubin,Total 0.6 mg/dL (0.2-1.3); Blood Urea Nitrogen 53 mg/dL (9-20); Calcium 8.5 mg/dL (8.4-10.2); Carbon Dioxide 18 mmol/L (22-30); Chloride 102 mmol/L (98-107); Estimated CRCL calculation 10 ml/min; Estimated Glomerular Filt Rate 8; Glucose 92 mg/dL (65-110); Potassium 5.4 mmol/L (3.4-5.0); Sodium 138 mmol/L (137-145)
[2022-01-22 07:09] LABS: Complement C3 115 mg/dL (88-165)
[2022-01-22 08:00] VITALS: BP 138/82; PULSE 89; RESP 24; TEMP 36.6; O2SAT 100
[2022-01-22 08:03] LABS: Glucose Point of Care 92 mg/dl (65-105)
[2022-01-22] MEDS: amLODIPine BESYLATE 5 MG TABLET 10 MG PO (08:36)
[2022-01-22] MEDS: CHOLECALCIFEROL 1,000 UNITS TABLET 4000 UNITS PO (08:36)
[2022-01-22] MEDS: CLOPIDOGREL BISULFATE 75 MG TABLET PO (08:37)
[2022-01-22] MEDS: METOPROLOL TARTRATE 12.5 MG TABLET PO (08:37)
[2022-01-22] MEDS: SENNA/DOCUSATE SODIUM TABLET 1 TAB PO ×2 (08:37→17:30)
[2022-01-22] MEDS: HEPARIN SODIUM 5,000 UNITS/ML VIAL 5000 UNITS SUB-Q ×2 (08:37→20:19)
[2022-01-22] MEDS: FAMOTIDINE 20 MG TABLET PO (08:37)
[2022-01-22] MEDS: ESCITALOPRAM OXALATE 10 MG TABLET PO (08:37)
[2022-01-22] MEDS: PANTOPRAZOLE SODIUM IV 40 MG VIAL IV PUSH (08:38)
[2022-01-22] MEDS: NEOMYCIN/POLYMYXIN/BACITRACIN OINTMENT 15 GM TUBE 1 APPLIC TOPICAL (08:38)
[2022-01-22 09:00] LABS: Hepatitis B Surface Antigen Negative (Negative)
[2022-01-22 09:18] LABS: Hepatitis B Surface Anti Res Negative
--- NOTE | 2022-01-22 09:41 | PM.IMPN ---
Progress Note: A&P Assessment and Plan (1) CINDY (acute kidney injury): Code(s): N17.9 - Acute kidney failure, unspecified Status: Acute Assessment and Plan: Appreciate nephrology consultation, hold all nephrotoxic agents, trial of IV fluids, unsure of etiology of renal injury Renal ultrasound shows normal kidneys without hydronephrosis but does indicate diffuse wall thickening of the bladder possibly from cystitis versus chronic outlet obstruction Monitor urine output closely Continues to worsen, cr up to 8.3 today (2) Hypertension: Code(s): I10 - Essential (primary) hypertension Status: Chronic Assessment and Plan: Controlled with Norvasc and metoprolol (3) Hyperkalemia: Code(s): E87.5 - Hyperkalemia Status: Acute Assessment and Plan: Likely secondary to kidney injury, appreciate nephrology consultation (4) Diabetes: Code(s): E11.9 - Type 2 diabetes mellitus without complications Status: Chronic Assessment and Plan: Continue Lantus, hold metformin, Accu-Cheks with sliding scale insulin Hemoglobin A1c is 8.3 (5) Depression: Code(s): F32.9 - Major depressive disorder, single episode, unspecified Status: Acute Assessment and Plan: Continue trazodone (6) Diastolic heart failure: Code(s): I50.30 - Unspecified diastolic (congestive) heart failure Status: Acute Assessment and Plan: Monitor fluid status closely Echo showed an EF of greater than 70%, grade 2 diastolic dysfunction, no significant valvular disease or pulmonary hypertension seen (7) GERD (gastroesophageal reflux disease): Code(s): K21.9 - Gastro-esophageal reflux disease without esophagitis Status: Acute Assessment and Plan: Continue H2 vic, add PPI (8) Altered mental status: Code(s): R41.82 - Altered mental status, unspecified Status: Acute Assessment and Plan: MRI shows no acute changes, carotid ultrasound shows 50-69% stenosis of bilateral internal carotid arteries (9) Stercoral colitis: Code(s): K52.89 - Other specified noninfective gastroenteritis and colitis Status: Acute Assessment and Plan: Will initiate a bowel regimen with Senokot S and monitor, may need GI consultation Plan 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 DVT prophylaxis with heparin GI prophylaxis with PPI Code status DNR Subjective Date/time seen: 01/22/22 09:41 Interval history: No overnight events noted. No shortness of breath. No nausea, vomiting or diarrhea. No fevers or chills. Patient is complaining of occasional chest pain, especially when he coughs. He is also complaining of some muffled sounds in his left ear that feel like his allergies. Review of Systems Review of Systems: 12 point review of systems was assessed and was negative except as noted in the HPI Exam Narrative: General: No acute distress, sleeping, easily arousable HEENT: Atraumatic, normocephalic, mucous membranes moist CV: Regular rate and rhythm, S1, S2 Lungs: Clear to auscultation bilaterally, no rales or crackles noted, no wheezes, good air entry Abdomen: Soft, nontender, nondistended Extremities: Normal to inspection Psych: Flattened affect Objective Data Vital Signs Vital Signs: Vital Signs - 24 hr 01/21/22 12:00 01/21/22 14:00 01/21/22 15:59 Temperature 99.6 F 99.6 F Pulse Rate 102 H 72 72 Respiratory Rate 18 18 Blood Pressure 116/77 116/77 Pulse Oximetry 100 100 Oxygen Delivery 01/21/22 16:13 01/21/22 16:00 01/21/22 20:00 Temperature 97.7 F Pulse Rate 80 86 84 Respiratory Rate 18 18 Blood Pressure 154/89 H 140/80 Pulse Oximetry 100 90 Oxygen Delivery Room Air 01/21/22 23:23 01/21/22 21:08 01/22/22 00:00 Temperature 97.6 F Pulse Rate 83 Respiratory Rate 18 Blood Pr
[2022-01-22] MEDS: oxyCODONE HCL (*CRX) 2.5 MG TAB IR PO ×2 (10:56→17:29)
[2022-01-22] MEDS: oxyCODONE/ACETAMINOPHEN (*CRX) 5-325 MG TABLET 1 TABLET PO ×2 (10:57→17:29)
[2022-01-22 11:47] LABS: Glucose Point of Care 123 mg/dl (65-105)
[2022-01-22 12:00] VITALS: BP 145/61; PULSE 71; PULSE 81; RESP 20; TEMP 37; O2SAT 96
--- NOTE | 2022-01-22 12:20 | PM.PNNEP ---
Progress Note: A&P Assessment and Plan (1) CINDY (acute kidney injury): Code(s): N17.9 - Acute kidney failure, unspecified Status: Acute Assessment and Plan: continues to deteriorate baseline creatinine normal about a year ago unclear over what period of time renal decline occurred... 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??) follow-up on serological testing urinalysis never done holding diuretics and CHASIDY-I trial of IVFs -- making urine but unclear how much bladder scan PRN follow trend of repeat labs and UOP (2) Hyperkalemia: Code(s): E87.5 - Hyperkalemia Status: Acute Assessment and Plan: presumably secondary to CINDY/ARF likely worsened by diuretics and CHASIDY-I use follow repeat labs medical management PRN (3) Altered mental status: Code(s): R41.82 - Altered mental status, unspecified Status: Acute Assessment and Plan: seems better at this time if not resolved imaging noted follow trend (4) Hypertension: Code(s): I10 - Essential (primary) hypertension Status: Chronic Assessment and Plan: reasonable control for now follow trend of hemodynamics (5) Diabetes: Code(s): E11.9 - Type 2 diabetes mellitus without complications Status: Chronic Assessment and Plan: follow accuchecks glycemic control Will continue to follow. Subjective Date/time seen: 01/22/22 12:20 Appears more awake and alert in comparison to yesterday; he has multiple complaints -- his chest hurts when he takes a deep breath; he states a doctor put some medicine in his ears and it making him feel dizzy; and, his right arm hurts; I informed once again that his kidney function continues to deteriorate despite all conservative therapy which made him quite concerned. Exam Narrative: General: WD/WN AA male in NAD Heart: normal S1 and S2; no rub Lungs: clear to auscultation Abdomen: soft, nontender, nondistended, positive bowel sounds Extremities: no cyanosis or clubbing; no edema Skin: warm and intact Objective Data Vital Signs Vital Signs: Vital Signs Temp Pulse Resp BP Pulse Ox O2 Del Method 01/22/22 12:00 71 01/22/22 12:00 37.0 C 81 20 145/61 H 96 01/22/22 08:00 89 24 H 100 Room Air 01/22/22 08:00 89 01/22/22 08:00 36.6 C 89 24 H 138/82 100 01/22/22 04:00 36.4 C 94 18 155/9 H 95 01/22/22 04:00 97 01/22/22 00:00 70 01/21/22 20:00 80 01/22/22 00:00 36.4 C 83 18 150/71 H 98 01/21/22 21:08 Room Air 01/21/22 23:23 94 Room Air 01/21/22 20:00 36.5 C 84 18 140/80 90 Intake/Output Intake/Output: Intake & Output 01/19/22 01/20/22 01/21/22 01/22/22 23:59 23:59 23:59 23:59 Intake Total 2200 3500 1920 Output Total 0 Balance 2200 3500 1920 Meds/Results Medications: Active Medications Generic Name Dose Route Start Last Admin Trade Name Freq PRN Reason Stop Dose Admin Amlodipine Besylate 10 mg 01/21/22 09:00 01/22/22 08:36 Amlodipine Besylate 5 Mg Tablet PO 10 mg DAILY MAXIMILIANO Administration Baclofen 10 mg 01/22/22 13:00 01/22/22 17:30 Baclofen 10 Mg Tablet PO 10 mg TID MAXIMILIANO Administration Benzonatate 200 mg 01/22/22 17:00 01/22/22 17:29 Benzonatate 100 Mg Capsule PO 200 mg TID MAXIMILIANO Administration Clopidogrel Bisulfate 75 mg 01/21/22 09:00 01/22/22 08:37 Clopidogrel Bisulfate 75 Mg Tablet PO 75 mg DAILY MAXIMILIANO Administration Dextrose 12.5 gm 01/20/22 14:10 Dextrose 50% 25 Gm/50 Ml Syringe IV PUSH PRN PRN Hypoglycemia Protocol Escitalopram Oxalate 10 mg 01/21/22 09:00 01/22/22 08:37 Escitalopram Oxalate 10 Mg Tablet PO 10 mg DAILY MAXIMILIANO Administration Famotidine 20 mg 01/21/22 09:00 01/22/22 08:37 Famotidine 20 Mg Tablet PO 20 mg DAILY [facility]
--- NOTE | 2022-01-22 12:20 | P.PNNP_ITS ---
Progress Note: A&P Assessment and Plan (1) CINDY (acute kidney injury): Code(s): N17.9 - Acute kidney failure, unspecified Status: Acute Assessment and Plan: * continues to deteriorate * baseline creatinine normal about a year ago * unclear over what period of time renal decline occurred... 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??) * follow-up on serological testing * urinalysis never done * holding diuretics and CHASIDY-I * trial of IVFs -- making urine but unclear how much * bladder scan PRN * follow trend of repeat labs and UOP (2) Hyperkalemia: Code(s): E87.5 - Hyperkalemia Status: Acute Assessment and Plan: * presumably secondary to CINDY/ARF * likely worsened by diuretics and CHASIDY-I use * follow repeat labs * medical management PRN (3) Altered mental status: Code(s): R41.82 - Altered mental status, unspecified Status: Acute Assessment and Plan: * seems better at this time if not resolved * imaging noted * follow trend (4) Hypertension: Code(s): I10 - Essential (primary) hypertension Status: Chronic Assessment and Plan: * reasonable control for now * follow trend of hemodynamics (5) Diabetes: Code(s): E11.9 - Type 2 diabetes mellitus without complications Status: Chronic Assessment and Plan: * follow accuchecks * glycemic control Will continue to follow. Subjective Date/time seen: 01/22/22 12:20 Appears more awake and alert in comparison to yesterday; he has multiple complaints -- his chest hurts when he takes a deep breath; he states a doctor put some medicine in his ears and it making him feel dizzy; and, his right arm hurts; I informed once again that his kidney function continues to deteriorate despite all conservative therapy which made him quite concerned. Exam Narrative: General: WD/WN AA male in NAD Heart: normal S1 and S2; no rub Lungs: clear to auscultation Abdomen: soft, nontender, nondistended, positive bowel sounds Extremities: no cyanosis or clubbing; no edema Skin: warm and intact Objective Data Vital Signs Vital Signs: Vital Signs Temp Pulse Resp BP Pulse Ox O2 Del Method 01/22/22 12:00 71 01/22/22 12:00 37.0 C 81 20 145/61 H 96 01/22/22 08:00 89 24 H 100 Room Air 01/22/22 08:00 89 01/22/22 08:00 36.6 C 89 24 H 138/82 100 01/22/22 04:00 36.4 C 94 18 155/9 H 95 01/22/22 04:00 97 01/22/22 00:00 70 01/21/22 20:00 80 01/22/22 00:00 36.4 C 83 18 150/71 H 98 01/21/22 21:08 Room Air 01/21/22 23:23 94 Room Air 01/21/22 20:00 36.5 C 84 18 140/80 90 Intake/Output Intake/Output: Intake & Output 01/19/22 01/20/22 01/21/22 01/22/22 23:59 23:59 23:59 23:59 Intake Total 2200 3500 1920 Output Total 0 Balance 2200 3500 1920 Meds/Results Medications: Active Medications Generic Name Dose Route Start Last Admin Trade Name Joseq PRN Reason Stop Dose Admin Amlodipine Besylate 10 mg 01/21/22 09:00
[2022-01-22] MEDS: BACLOFEN 10 MG TABLET PO ×2 (15:28→17:30)
--- NOTE | 2022-01-22 15:38 | PM.CNCAR ---
Assessment and Plan Assessment and plan (1) Elevated troponin: Code(s): R77.8 - Other specified abnormalities of plasma proteins Status: Acute Assessment and Plan: patient has mildly elevated troponins which are flat. I doubt he has any acute coronary syndrome. I suspect the elevated troponins are due to his acute kidney failure. (2) Abnormal EKG: Code(s): R94.31 - Abnormal electrocardiogram [ECG] [EKG] Status: Acute Assessment and Plan: Minor EKG abnormalities with a left anterior fascicular block. No evidence of ACS. No further cardiac FERRARA needed. (3) Chest pain: Code(s): R07.9 - Chest pain, unspecified Status: Acute Assessment and Plan: The patient today states she has had pleuritic chest pain for the past 2 or 3 days, which is a new complaint. No rub on exam no pericardial effusion Nothing on EKG to suggest pericarditis Not c/w any ACS Possibly some early pericarditis due to acute kidney disease failure, although no object of evidence of this. No further cardiac FERRARA (4) CINDY (acute kidney injury): Code(s): N17.9 - Acute kidney failure, unspecified Status: Acute Assessment and Plan: CINDY being evaluated by Dr. Jordan. (5) History of CVA (cerebrovascular accident): Code(s): Z86.73 - Personal history of transient ischemic attack (TIA), and cerebral infarction without residual deficits Status: Acute Assessment and Plan: carries a history of stroke, has moderate carotid disease. continue aspirin and atorvastatin, plus/minus clopidogrel (6) Hallucinations: Code(s): R44.3 - Hallucinations, unspecified Status: Acute Assessment and Plan: Eval per hospitalists. (7) Paraplegia: Code(s): G82.20 - Paraplegia, unspecified Status: Chronic History of Present Illness History of Present Illness Consult date/time: 01/22/22 15:38 Reason For Visit: Renal Failure Narrative: Jas Rodriguez is a 56-year-old male whom I was asked to see at the request of Dr. Alvarez for my advice and opinion regarding elevated troponins, abnormal EKG, in consultation The patient has quadriplegia since C-spine surgery in lives in [facility]. He was was brought to the emergency room because of complaints of him just not feeling well. He says he was dizzy, and Now he admits that his chest was hurting. He states he was having pleuritic chest pain which made it difficult to breathe, for the the last 2-3 days. Also was right leg was hurting but that is chronic. actually his main complaint to me today is that he has been hallucinating for the past 2 days since a doctor put her drops in his left ear on admission. he is hearing noises and seeing things are not really there. Troponins were 0.018, 0.042, 0.042 and 0.042. He was found to be in acute renal failure with a troponin of about 6 on admission, which has gone up to 8.3 this morning (creatinine 07/2020 was 0.9). Review of Systems Constitutional: Constitutional: Denies fever(s) Eyes: Eyes: Reports no additional eye complaints ENT: Denies epistaxis Comments: He is bothered by a noise in the room that I cannot hear Cardiovascular: Cardiovascular: Reports chest pain ( pleuritic), Denies pedal edema, Denies lightheadedness and Denies dyspnea Respiratory: Respiratory: Denies chest congestion and Denies dyspnea Gastrointestinal: Gastrointestinal: Denies abdominal pain and Denies hematochezia Genitourinary: Genitourinary: Denies dysuria Musculoskeletal: Musculoskeletal: Reports arthralgias ( right lower extremity pain) and Reports stiffness ( hands cramp) Integumentary/Breasts: Skin/Breast: Reports system reviewed and no additional complaints, except as docu Neurologic: Reports system reviewed and no additional complaints, except as documented, Denies behavioral changes and Denies confusion Psychiatric: Psychiatric
[2022-01-22 16:00] VITALS: BP 147/77; PULSE 71; PULSE 74; RESP 20; TEMP 36.8; O2SAT 96
[2022-01-22 16:38] LABS: Glucose Point of Care 120 mg/dl (65-105)
[2022-01-22] MEDS: BENZONATATE 100 MG CAPSULE 200 MG PO (17:29)
[2022-01-22 20:00] VITALS: BP 118/70; PULSE 70; PULSE 79; RESP 18; TEMP 37.1; O2SAT 100
[2022-01-22] MEDS: FLUTICASONE PROPIONATE 0.05% NA SPR 16 GM BTL (*BKC) 1 SPRAY NASAL (20:18)
[2022-01-22] MEDS: traZODone HCL 50 MG TABLET PO (20:19)
[2022-01-22] MEDS: guaiFENesin 12 HR 600 MG TABCR 1200 MG PO (20:19)
[2022-01-22] MEDS: INSULIN GLARGINE (*BKC) 100 UNITS/ML SUB-Q (20:33)
[2022-01-22 22:15] LABS: Glucose Point of Care 142 mg/dl (65-105)
[2022-01-23] VITALS (12 sets, daily range): BP systolic 140–152; BP diastolic 72–79; PULSE 60–86; RESP 17–18; TEMP 36.2–36.6; O2SAT 94–100
[2022-01-23] MEDS: GABAPENTIN 400 MG CAPSULE 800 MG PO ×3 (05:44→21:03)
[2022-01-23 06:49] LABS: Basophils Percent Auto 0.2 % (0.2-1.2); Eosinophils Absolute Auto 0.2 K/mm3 (0-0.3); Eosinophils Percent Auto 2.6 % (0-4.4); Hematocrit 29.5 % (42.0-52.0); Hemoglobin 9.3 g/dL (14.0-18.0); Immature Granulocyte Absolute 0.03 K/mm3 (0.00-0.031); Immature Granulocyte Percent A 0.4 % (0-0.5); Lymphocytes Absolute Auto 2.05 K/mm3 (0.9-3.2); Lymphocytes Percent Auto 24.4 % (18.3-44.2); Mean Corpuscular HGB Conc 31.5 g/dl (32-36); Mean Corpuscular Hemoglobin 27.4 pg (26-34); Mean Platelet Volume 10.3 fl (7.4-10.4); Monocytes Absolute Auto 0.9 K/mm3 (0.1-0.6); Monocytes Percent Auto 10.2 % (2.6-8.5); Neutrophils Absolute Auto 5.2 K/mm3 (1.3-6.7); Neutrophils Percent Auto 62.2 % (45.5-73.1); Platelet Count Result 229 k/mm3 (150-375); Red Blood Count 3.39 M/mm3 (4.6-6.20); Red Cell Distribution Width 15.2 % (11.5-14.5); White Blood Count 8.4 K/mm3 (4.5-10.0)
[2022-01-23 07:01] LABS: Alanine Aminotransferase 25 U/L (6-50); Albumin Level 3.7 g/dL (3.5-5.1); Alkaline Phosphatase 108 U/L (38-126); Anion Gap 13 mmol/L (8-16); Aspartate Amino Transferase 42 U/L (17-59); Bilirubin,Total 0.6 mg/dL (0.2-1.3); Blood Urea Nitrogen 59 mg/dL (9-20); Calcium 8.4 mg/dL (8.4-10.2); Carbon Dioxide 21 mmol/L (22-30); Chloride 103 mmol/L (98-107); Estimated CRCL calculation 10 ml/min; Estimated Glomerular Filt Rate 8; Glucose 98 mg/dL (65-110); Potassium 4.7 mmol/L (3.4-5.0); Sodium 137 mmol/L (137-145)
[2022-01-23 07:51] LABS: Glucose Point of Care 106 mg/dl (65-105)
[2022-01-23] MEDS: oxyCODONE/ACETAMINOPHEN (*CRX) 5-325 MG TABLET 1 TABLET PO ×2 (09:20→17:00)
[2022-01-23] MEDS: oxyCODONE HCL (*CRX) 2.5 MG TAB IR PO ×2 (09:20→17:00)
[2022-01-23] MEDS: FLUTICASONE PROPIONATE 0.05% NA SPR 16 GM BTL (*BKC) 1 SPRAY NASAL ×2 (09:29→21:03)
[2022-01-23] MEDS: guaiFENesin 12 HR 600 MG TABCR 1200 MG PO ×2 (09:29→21:03)
[2022-01-23] MEDS: BENZONATATE 100 MG CAPSULE 200 MG PO ×2 (09:30→16:14)
[2022-01-23] MEDS: HEPARIN SODIUM 5,000 UNITS/ML VIAL 5000 UNITS SUB-Q ×2 (09:30→21:02)
[2022-01-23] MEDS: CHOLECALCIFEROL 1,000 UNITS TABLET 4000 UNITS PO (09:30)
[2022-01-23] MEDS: NEOMYCIN/POLYMYXIN/BACITRACIN OINTMENT 15 GM TUBE 1 APPLIC TOPICAL (09:30)
[2022-01-23] MEDS: ESCITALOPRAM OXALATE 10 MG TABLET PO (09:30)
[2022-01-23] MEDS: METOPROLOL TARTRATE 12.5 MG TABLET PO (09:31)
[2022-01-23] MEDS: FAMOTIDINE 20 MG TABLET PO (09:31)
[2022-01-23] MEDS: PANTOPRAZOLE SODIUM IV 40 MG VIAL IV PUSH (09:31)
[2022-01-23] MEDS: amLODIPine BESYLATE 5 MG TABLET 10 MG PO (09:31)
[2022-01-23] MEDS: SENNA/DOCUSATE SODIUM TABLET 1 TAB PO ×2 (09:31→16:14)
[2022-01-23] MEDS: CLOPIDOGREL BISULFATE 75 MG TABLET PO (09:32)
[2022-01-23] MEDS: LORATADINE 10 MG TABLET PO (09:32)
[2022-01-23] MEDS: BACLOFEN 10 MG TABLET PO ×3 (09:32→17:30)
--- NOTE | 2022-01-23 09:44 | PM.IMPN ---
Progress Note: A&P Assessment and Plan (1) CINDY (acute kidney injury): Code(s): N17.9 - Acute kidney failure, unspecified Status: Acute Assessment and Plan: Appreciate nephrology consultation, hold all nephrotoxic agents, trial of IV fluids, unsure of etiology of renal injury Renal ultrasound shows normal kidneys without hydronephrosis but does indicate diffuse wall thickening of the bladder possibly from cystitis versus chronic outlet obstruction Monitor urine output closely Cr remains at 8.3 today (2) Hypertension: Code(s): I10 - Essential (primary) hypertension Status: Chronic Assessment and Plan: Controlled with Norvasc and metoprolol (3) Hyperkalemia: Code(s): E87.5 - Hyperkalemia Status: Acute Assessment and Plan: Likely secondary to kidney injury, appreciate nephrology consultation (4) Diabetes: Code(s): E11.9 - Type 2 diabetes mellitus without complications Status: Chronic Assessment and Plan: Continue Lantus, hold metformin, Accu-Cheks with sliding scale insulin Hemoglobin A1c is 8.3 (5) Depression: Code(s): F32.9 - Major depressive disorder, single episode, unspecified Status: Acute Assessment and Plan: Continue trazodone (6) Diastolic heart failure: Code(s): I50.30 - Unspecified diastolic (congestive) heart failure Status: Acute Assessment and Plan: Monitor fluid status closely Echo showed an EF of greater than 70%, grade 2 diastolic dysfunction, no significant valvular disease or pulmonary hypertension seen (7) GERD (gastroesophageal reflux disease): Code(s): K21.9 - Gastro-esophageal reflux disease without esophagitis Status: Acute Assessment and Plan: Continue H2 vic, add PPI (8) Altered mental status: Code(s): R41.82 - Altered mental status, unspecified Status: Acute Assessment and Plan: MRI shows no acute changes, carotid ultrasound shows 50-69% stenosis of bilateral internal carotid arteries resolved (9) Stercoral colitis: Code(s): K52.89 - Other specified noninfective gastroenteritis and colitis Status: Acute Plan 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 DVT prophylaxis with heparin GI prophylaxis with PPI Code status DNR Subjective Date/time seen: 01/23/22 09:44 Interval history: No overnight events noted. No shortness of breath. No nausea, vomiting or diarrhea. No fevers or chills. Still c/o chest pain, better than yesterday. Review of Systems Review of Systems: 12 point review of systems was assessed and was negative except as noted in the HPI Exam Narrative: General: No acute distress, sleeping, easily arousable HEENT: Atraumatic, normocephalic, mucous membranes moist CV: Regular rate and rhythm, S1, S2 Lungs: Clear to auscultation bilaterally, no rales or crackles noted, no wheezes, good air entry Abdomen: Soft, nontender, nondistended Extremities: Normal to inspection Psych: Flattened affect Objective Data Vital Signs Vital Signs: Vital Signs - 24 hr 01/22/22 12:00 01/22/22 16:00 01/22/22 12:00 Temperature 98.6 F 98.3 F Pulse Rate 81 71 71 Respiratory Rate 20 20 Blood Pressure 145/61 H 147/77 H Pulse Oximetry 96 96 Oxygen Delivery 01/22/22 16:00 01/22/22 20:00 01/22/22 20:00 Temperature 98.7 F Pulse Rate 74 79 70 Respiratory Rate 18 Blood Pressure 118/70 Pulse Oximetry 100 Oxygen Delivery 01/23/22 00:00 01/23/22 00:53 01/23/22 04:00 Temperature Pulse Rate 60 82 68 Respiratory Rate Blood Pressure Pulse Oximetry 95 Oxygen Delivery Autopap 01/23/22 05:37 01/23/22 06:02 01/23/22 09:31 Temperature 97.5 F L Pulse Rate 76 72 84 Respiratory Rate 18 Blood Pressure 145/79 H Pulse Oximetry 94 100 Oxygen Delivery Autopap Intake/
[2022-01-23 11:34] LABS: Glucose Point of Care 144 mg/dl (65-105)
--- NOTE | 2022-01-23 11:56 | PM.PNNEP ---
Progress Note: A&P Assessment and Plan (1) CINDY (acute kidney injury): Code(s): N17.9 - Acute kidney failure, unspecified Status: Acute Assessment and Plan: baseline creatinine normal about a year ago unclear over what period of time renal decline occurred... 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??) follow-up on serological testing urinalysis never done holding diuretics and CHASIDY-I suspect a component of urinary retention 800cc immediately drained after carranza catheter placement renal scan today follow trend of repeat labs and UOP (2) Hyperkalemia: Code(s): E87.5 - Hyperkalemia Status: Acute Assessment and Plan: resolved presumably secondary to CINDY/ARF likely worsened by diuretics and CHASIDY-I use follow repeat labs medical management PRN (3) Altered mental status: Code(s): R41.82 - Altered mental status, unspecified Status: Acute Assessment and Plan: seems resolved imaging noted follow trend (4) Hypertension: Code(s): I10 - Essential (primary) hypertension Status: Chronic Assessment and Plan: reasonable control for now follow trend of hemodynamics (5) Diabetes: Code(s): E11.9 - Type 2 diabetes mellitus without complications Status: Chronic Assessment and Plan: follow accuchecks glycemic control Will continue to follow. Subjective Date/time seen: 01/23/22 11:56 Nurse placed carranza catheter earlier this today with almost immediate output of 800cc of urine; creatinine about the same as yesterday with improvement in potassium level; noted plan for renal scan this afternoon; no other acute issues to report at this time. Exam Narrative: General: WD/WN AA male in NAD Heart: normal S1 and S2; no rub Lungs: clear to auscultation Abdomen: soft, nontender, nondistended, positive bowel sounds Extremities: no cyanosis or clubbing; no edema Skin: no rash Objective Data Vital Signs Vital Signs: Vital Signs Temp Pulse Resp BP Pulse Ox O2 Del Method 01/23/22 08:00 79 01/23/22 08:00 36.6 C 86 18 150/78 H 100 01/23/22 09:31 84 01/23/22 06:02 36.4 C L 72 18 145/79 H 100 01/23/22 05:37 76 94 Autopap 01/23/22 04:00 68 10/14/22 00:53 82 95 Autopap 01/23/22 00:00 60 01/22/22 20:00 70 01/22/22 20:00 37.1 C 79 18 118/70 100 01/22/22 16:00 74 01/22/22 16:00 36.8 C 71 20 147/77 H 96 Intake/Output Intake/Output: Intake & Output 01/20/22 01/21/22 01/22/22 01/23/22 23:59 23:59 23:59 23:59 Intake Total 2200 3500 2220 850 Output Total 0 Balance 2200 3500 2220 850 Meds/Results Medications: Active Medications Generic Name Dose Route Start Last Admin Trade Name Freq PRN Reason Stop Dose Admin Amlodipine Besylate 10 mg 01/21/22 09:00 01/23/22 09:31 Amlodipine Besylate 5 Mg Tablet PO 10 mg DAILY MAXIMILIANO Administration Baclofen 10 mg 01/22/22 13:00 01/23/22 09:32 Baclofen 10 Mg Tablet PO 10 mg TID MAXIMILIANO Administration Benzonatate 200 mg 01/22/22 17:00 01/23/22 09:30 Benzonatate 100 Mg Capsule PO 200 mg TID MAXIMILIANO Administration Clopidogrel Bisulfate 75 mg 01/21/22 09:00 01/23/22 09:32 Clopidogrel Bisulfate 75 Mg Tablet PO 75 mg DAILY MAXIMILIANO Administration Dextrose 12.5 gm 01/20/22 14:10 Dextrose 50% 25 Gm/50 Ml Syringe IV PUSH PRN PRN Hypoglycemia Protocol Escitalopram Oxalate 10 mg 01/21/22 09:00 01/23/22 09:30 Escitalopram Oxalate 10 Mg Tablet PO 10 mg DAILY MAXIMILIANO Administration Famotidine 20 mg 01/21/22 09:00 01/23/22 09:31 Famotidine 20 Mg Tablet PO 20 mg DAILY MAXIMILIANO Administration Fluticasone Propionate 1 spray 01/22/22 21:00 01/23/22 09:29 Fluticasone Propionate 0.05% Na Spr 16 Gm Btl (*Bkc) NASAL 1 spray Q12HR
--- NOTE | 2022-01-23 11:56 | P.PNNP_ITS ---
Progress Note: A&P Assessment and Plan (1) CINDY (acute kidney injury): Code(s): N17.9 - Acute kidney failure, unspecified Status: Acute Assessment and Plan: * baseline creatinine normal about a year ago * unclear over what period of time renal decline occurred... 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??) * follow-up on serological testing * urinalysis never done * holding diuretics and CHASIDY-I * suspect a component of urinary retention * 800cc immediately drained after carranza catheter placement * renal scan today * follow trend of repeat labs and UOP (2) Hyperkalemia: Code(s): E87.5 - Hyperkalemia Status: Acute Assessment and Plan: * resolved * presumably secondary to CINDY/ARF * likely worsened by diuretics and CHASIDY-I use * follow repeat labs * medical management PRN (3) Altered mental status: Code(s): R41.82 - Altered mental status, unspecified Status: Acute Assessment and Plan: * seems resolved * imaging noted * follow trend (4) Hypertension: Code(s): I10 - Essential (primary) hypertension Status: Chronic Assessment and Plan: * reasonable control for now * follow trend of hemodynamics (5) Diabetes: Code(s): E11.9 - Type 2 diabetes mellitus without complications Status: Chronic Assessment and Plan: * follow accuchecks * glycemic control Will continue to follow. Subjective Date/time seen: 01/23/22 11:56 Nurse placed carranza catheter earlier this today with almost immediate output of 800cc of urine; creatinine about the same as yesterday with improvement in potassium level; noted plan for renal scan this afternoon; no other acute issues to report at this time. Exam Narrative: General: WD/WN AA male in NAD Heart: normal S1 and S2; no rub Lungs: clear to auscultation Abdomen: soft, nontender, nondistended, positive bowel sounds Extremities: no cyanosis or clubbing; no edema Skin: no rash Objective Data Vital Signs Vital Signs: Vital Signs Temp Pulse Resp BP Pulse Ox O2 Del Method 01/23/22 08:00 79 01/23/22 08:00 36.6 C 86 18 150/78 H 100 01/23/22 09:31 84 01/23/22 06:02 36.4 C L 72 18 145/79 H 100 01/23/22 05:37 76 94 Autopap 01/23/22 04:00 68 01/23/22 00:53 82 95 Autopap 01/23/22 00:00 60 01/22/22 20:00 70 01/22/22 20:00 37.1 C 79 18 118/70 100 01/22/22 16:00 74 01/22/22 16:00 36.8 C 71 20 147/77 H 96 Intake/Output Intake/Output: Intake & Output 01/20/22 01/21/22 01/22/22 01/23/22 23:59 23:59 23:59 23:59 Intake Total 2200 3500 2220 850 Output Total 0 Balance 2200 3500 2220 850 Meds/Results Medications: Active Medications Generic Name Dose Route Start Last Admin Trade Name Joseq PRN Reason Stop Dose Admin Amlodipine Besylate 10 mg 01/21/22 09:00 01/23/22 09:31 Amlodipine Besylate 5 Mg Tablet PO 10 mg DAILY MAXIMILIANO Administration Baclofen 10 mg 01/22/22 13:00 01/23/22 09:32
[2022-01-23 12:48] LABS: Myoglobin, Urine <27 mcg/L (<28)
[2022-01-23 17:45] LABS: Glucose Point of Care 186 mg/dl (65-105)
[2022-01-23] MEDS: INSULIN GLARGINE (*BKC) 100 UNITS/ML SUB-Q (21:02)
[2022-01-23] MEDS: traZODone HCL 50 MG TABLET PO (21:03)
[2022-01-23 21:31] LABS: Glucose Point of Care 247 mg/dl (65-105)
[2022-01-24] VITALS (10 sets, daily range): BP systolic 107–148; BP diastolic 66–94; PULSE 61–80; RESP 18–22; TEMP 36.3–36.7; O2SAT 97–100
[2022-01-24] MEDS: GABAPENTIN 400 MG CAPSULE 800 MG PO ×3 (06:46→20:57)
--- NOTE | 2022-01-24 07:34 | PC.NURSE ---
This nurse assumed care of this patient on 01/23/22 at 1900. Any medications administered or charting after 1900 on 01/23/22 was KLL not the previous nurse.
[2022-01-24 07:55] LABS: Glucose Point of Care 157 mg/dl (65-105)
[2022-01-24] MEDS: FLUTICASONE PROPIONATE 0.05% NA SPR 16 GM BTL (*BKC) 1 SPRAY NASAL ×2 (08:18→20:57)
[2022-01-24] MEDS: PANTOPRAZOLE SODIUM IV 40 MG VIAL IV PUSH (08:18)
[2022-01-24] MEDS: HEPARIN SODIUM 5,000 UNITS/ML VIAL 5000 UNITS SUB-Q ×2 (08:18→20:58)
[2022-01-24] MEDS: CHOLECALCIFEROL 1,000 UNITS TABLET 4000 UNITS PO (08:18)
[2022-01-24] MEDS: NEOMYCIN/POLYMYXIN/BACITRACIN OINTMENT 15 GM TUBE 1 APPLIC TOPICAL (08:18)
[2022-01-24] MEDS: METOPROLOL TARTRATE 12.5 MG TABLET PO (08:18)
[2022-01-24] MEDS: SENNA/DOCUSATE SODIUM TABLET 1 TAB PO ×2 (08:19→16:45)
[2022-01-24] MEDS: BACLOFEN 10 MG TABLET PO ×3 (08:19→16:45)
[2022-01-24] MEDS: CLOPIDOGREL BISULFATE 75 MG TABLET PO (08:19)
[2022-01-24] MEDS: LORATADINE 10 MG TABLET PO (08:19)
[2022-01-24] MEDS: oxyCODONE/ACETAMINOPHEN (*CRX) 5-325 MG TABLET 1 TABLET PO ×2 (08:19→16:46)
[2022-01-24] MEDS: BENZONATATE 100 MG CAPSULE 200 MG PO ×2 (08:19→16:45)
[2022-01-24] MEDS: amLODIPine BESYLATE 5 MG TABLET 10 MG PO (08:19)
[2022-01-24] MEDS: oxyCODONE HCL (*CRX) 2.5 MG TAB IR PO ×2 (08:19→16:46)
[2022-01-24] MEDS: ESCITALOPRAM OXALATE 10 MG TABLET PO (08:19)
[2022-01-24] MEDS: FAMOTIDINE 20 MG TABLET PO (08:19)
[2022-01-24] MEDS: guaiFENesin 12 HR 600 MG TABCR 1200 MG PO ×2 (08:19→20:56)
--- NOTE | 2022-01-24 10:39 | PM.IMPN ---
Progress Note: A&P Assessment and Plan (1) CINDY (acute kidney injury): Code(s): N17.9 - Acute kidney failure, unspecified Status: Acute Assessment and Plan: Appreciate nephrology consultation, hold all nephrotoxic agents, trial of IV fluids, unsure of etiology of renal injury, suspect ATN compounded by obstructive uropathy Renal ultrasound shows normal kidneys without hydronephrosis but does indicate diffuse wall thickening of the bladder possibly from cystitis versus chronic outlet obstruction Monitor urine output closely Creatinine improved to 6.6 and urine output increased significantly, continue to monitor (2) Hypertension: Code(s): I10 - Essential (primary) hypertension Status: Chronic Assessment and Plan: Controlled with Norvasc and metoprolol (3) Hyperkalemia: Code(s): E87.5 - Hyperkalemia Status: Acute Assessment and Plan: Likely secondary to kidney injury, appreciate nephrology consultation (4) Diabetes: Code(s): E11.9 - Type 2 diabetes mellitus without complications Status: Chronic Assessment and Plan: Continue Lantus, hold metformin, Accu-Cheks with sliding scale insulin Hemoglobin A1c is 8.3 (5) Depression: Code(s): F32.9 - Major depressive disorder, single episode, unspecified Status: Acute Assessment and Plan: Continue trazodone (6) Diastolic heart failure: Code(s): I50.30 - Unspecified diastolic (congestive) heart failure Status: Acute Assessment and Plan: Monitor fluid status closely Echo showed an EF of greater than 70%, grade 2 diastolic dysfunction, no significant valvular disease or pulmonary hypertension seen (7) GERD (gastroesophageal reflux disease): Code(s): K21.9 - Gastro-esophageal reflux disease without esophagitis Status: Acute Assessment and Plan: Continue H2 vic, add PPI (8) Altered mental status: Code(s): R41.82 - Altered mental status, unspecified Status: Acute Assessment and Plan: MRI shows no acute changes, carotid ultrasound shows 50-69% stenosis of bilateral internal carotid arteries resolved (9) Stercoral colitis: Code(s): K52.89 - Other specified noninfective gastroenteritis and colitis Status: Acute Plan 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 DVT prophylaxis with heparin GI prophylaxis with PPI Code status DNR Subjective Date/time seen: 01/24/22 10:39 Interval history: No overnight events noted. No shortness of breath. No nausea, vomiting or diarrhea. No fevers or chills. Now with tetany of right hand and general feeling of malaise and fogginess as well as generally weak. Review of Systems Review of Systems: 12 point review of systems was assessed and was negative except as noted in the HPI Exam Narrative: General: No acute distress, sleeping, easily arousable HEENT: Atraumatic, normocephalic, mucous membranes moist CV: Regular rate and rhythm, S1, S2 Lungs: Clear to auscultation bilaterally, no rales or crackles noted, no wheezes, good air entry Abdomen: Soft, nontender, nondistended Extremities: Right hand stuck in flexion, fingers able to be passively extended without discomfort, patient unable to do actively Psych: Flattened affect Objective Data Vital Signs Vital Signs: Vital Signs - 24 hr 01/23/22 16:13 01/23/22 16:00 01/23/22 12:00 Temperature 97.7 F Pulse Rate 66 62 72 Respiratory Rate 17 Blood Pressure 152/72 H Pulse Oximetry 99 100 Oxygen Delivery Autopap 01/23/22 16:00 01/23/22 20:00 01/23/22 23:33 Temperature 97.1 F L Pulse Rate 65 69 Respiratory Rate 18 Blood Pressure 140/72 Pulse Oximetry 98 Oxygen Delivery Room Air 01/23/22 20:00 01/24/22 00:00 01/24/22 04:00 Temperature Pulse Rate 75 73 61 Respiratory Rate Blood
[2022-01-24 11:09] LABS: Basophils Percent Auto 0.2 % (0.2-1.2); Eosinophils Absolute Auto 0.2 K/mm3 (0-0.3); Eosinophils Percent Auto 2.6 % (0-4.4); Hematocrit 32.6 % (42.0-52.0); Hemoglobin 10.1 g/dL (14.0-18.0); Immature Granulocyte Absolute 0.03 K/mm3 (0.00-0.031); Immature Granulocyte Percent A 0.4 % (0-0.5); Lymphocytes Percent Auto 14.4 % (18.3-44.2); Mean Corpuscular Hemoglobin 27.3 pg (26-34); Mean Corpuscular Volume 88.1 fl (80-100); Mean Platelet Volume 10.3 fl (7.4-10.4); Monocytes Absolute Auto 0.7 K/mm3 (0.1-0.6); Monocytes Percent Auto 8.3 % (2.6-8.5); Neutrophils Absolute Auto 6.2 K/mm3 (1.3-6.7); Neutrophils Percent Auto 74.1 % (45.5-73.1); Platelet Count Result 223 k/mm3 (150-375); Red Cell Distribution Width 15.3 % (11.5-14.5); White Blood Count 8.4 K/mm3 (4.5-10.0)
[2022-01-24 11:24] LABS: Alanine Aminotransferase 34 U/L (6-50); Albumin Level 3.9 g/dL (3.5-5.1); Alkaline Phosphatase 111 U/L (38-126); Anion Gap 12 mmol/L (8-16); Aspartate Amino Transferase 43 U/L (17-59); Bilirubin,Total 0.5 mg/dL (0.2-1.3); Blood Urea Nitrogen 54 mg/dL (9-20); Calcium 8.2 mg/dL (8.4-10.2); Carbon Dioxide 22 mmol/L (22-30); Chloride 103 mmol/L (98-107); Estimated CRCL calculation 13 ml/min; Estimated Glomerular Filt Rate 11; Glucose 258 mg/dL (65-110); Potassium 4.4 mmol/L (3.4-5.0); Sodium 137 mmol/L (137-145)
[2022-01-24 11:27] LABS: Glucose Point of Care 271 mg/dl (65-105)
--- NOTE | 2022-01-24 11:27 | P.PNNP_ITS ---
Progress Note: A&P Assessment and Plan (1) CINDY (acute kidney injury): Code(s): N17.9 - Acute kidney failure, unspecified Status: Acute Assessment and Plan: * baseline creatinine normal about a year ago * unclear over what period of time renal decline occurred... 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??) * follow-up on serological testing * urinalysis never done - will check since has carranza * holding diuretics and CHASIDY-I at this time * follow trend of repeat labs and UOP (2) Hyperkalemia: Code(s): E87.5 - Hyperkalemia Status: Acute Assessment and Plan: * resolved * presumably secondary to CINDY/ARF * likely worsened by diuretics and CHASIDY-I use * follow repeat labs * medical management PRN (3) Altered mental status: Code(s): R41.82 - Altered mental status, unspecified Status: Acute Assessment and Plan: * resolved * imaging noted * follow trend (4) Hypertension: Code(s): I10 - Essential (primary) hypertension Status: Chronic Assessment and Plan: * reasonable control for now * follow trend of hemodynamics (5) Diabetes: Code(s): E11.9 - Type 2 diabetes mellitus without complications Status: Chronic Assessment and Plan: * follow accuchecks * glycemic control Will continue to follow. Subjective Date/time seen: 01/24/22 11:27 Significant urine output noted since placement of carranza catheter and renal function better by AM labs; no other acute issues/events overnight but states he feels more weak and fatigued this morning; no other complaints voiced at this time. Exam Narrative: General: WD/WN AA male in NAD Heart: normal S1 and S2; no rub Lungs: clear to auscultation Abdomen: soft, nontender, nondistended, positive bowel sounds Extremities: no cyanosis or clubbing; no edema Skin: no nodules Objective Data Vital Signs Vital Signs: Vital Signs Temp Pulse Resp BP Pulse Ox O2 Del Method 01/24/22 08:00 71 01/24/22 08:15 97 Room Air 01/24/22 08:00 36.3 C L 68 18 146/66 H 100 01/24/22 08:18 66 01/24/22 04:00 61 01/24/22 00:00 73 01/23/22 20:00 75 01/23/22 23:33 36.2 C L 69 18 140/72 98 01/23/22 20:00 Room Air 01/23/22 16:00 65 01/23/22 16:00 36.5 C 62 17 152/72 H 100 01/23/22 16:13 66 99 Autopap Intake/Output Intake/Output: Intake & Output 01/21/22 01/22/22 01/23/22 01/24/22 23:59 23:59 23:59 23:59 Intake Total 3500 2220 1650 300 Output Total 0 1700 3900 Balance 3500 2220 -50 -3600 Meds/Results Medications: Active Medications Generic Name Dose Route Start Last Admin Trade Name Freq PRN Reason Stop Dose Admin Amlodipine Besylate 1
--- NOTE | 2022-01-24 11:27 | PM.PNNEP ---
Progress Note: A&P Assessment and Plan (1) CINDY (acute kidney injury): Code(s): N17.9 - Acute kidney failure, unspecified Status: Acute Assessment and Plan: baseline creatinine normal about a year ago unclear over what period of time renal decline occurred... 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-up on serological testing urinalysis never done - will check since has carranza holding diuretics and CHASIDY-I at this time follow trend of repeat labs and UOP (2) Hyperkalemia: Code(s): E87.5 - Hyperkalemia Status: Acute Assessment and Plan: resolved presumably secondary to CINDY/ARF likely worsened by diuretics and CHASIDY-I use follow repeat labs medical management PRN (3) Altered mental status: Code(s): R41.82 - Altered mental status, unspecified Status: Acute Assessment and Plan: resolved imaging noted follow trend (4) Hypertension: Code(s): I10 - Essential (primary) hypertension Status: Chronic Assessment and Plan: reasonable control for now follow trend of hemodynamics (5) Diabetes: Code(s): E11.9 - Type 2 diabetes mellitus without complications Status: Chronic Assessment and Plan: follow accuchecks glycemic control Will continue to follow. Subjective Date/time seen: 01/24/22 11:27 Significant urine output noted since placement of carranza catheter and renal function better by AM labs; no other acute issues/events overnight but states he feels more weak and fatigued this morning; no other complaints voiced at this time. Exam Narrative: General: WD/WN AA male in NAD Heart: normal S1 and S2; no rub Lungs: clear to auscultation Abdomen: soft, nontender, nondistended, positive bowel sounds Extremities: no cyanosis or clubbing; no edema Skin: no nodules Objective Data Vital Signs Vital Signs: Vital Signs Temp Pulse Resp BP Pulse Ox O2 Del Method 01/24/22 08:00 71 01/24/22 08:15 97 Room Air 01/24/22 08:00 36.3 C L 68 18 146/66 H 100 01/24/22 08:18 66 01/24/22 04:00 61 01/24/22 00:00 73 01/23/22 20:00 75 01/23/22 23:33 36.2 C L 69 18 140/72 98 01/23/22 20:00 Room Air 01/23/22 16:00 65 01/23/22 16:00 36.5 C 62 17 152/72 H 100 01/23/22 16:13 66 99 Autopap Intake/Output Intake/Output: Intake & Output 01/21/22 01/22/22 01/23/22 01/24/22 23:59 23:59 23:59 23:59 Intake Total 3500 2220 1650 300 Output Total 0 1700 3900 Balance 3500 2220 -50 -3600 Meds/Results Medications: Active Medications Generic Name Dose Route Start Last Admin Trade Name Freq PRN Reason Stop Dose Admin Amlodipine Besylate 10 mg 01/21/22 09:00 01/24/22 08:19 Amlodipine Besylate 5 Mg Tablet PO 10 mg DAILY MAXIMILIANO Administration Baclofen 10 mg 01/22/22 13:00 01/24/22 12:16 Baclofen 10 Mg Tablet PO 10 mg TID MAXIMILIANO Administration Benzonatate 200 mg 01/22/22 17:00 01/24/22 12:17 Benzonatate 100 Mg Capsule PO Not Given TID MAXIMILIANO Clopidogrel Bisulfate 75 mg 01/21/22 09:00 01/24/22 08:19 Clopidogrel Bisulfate 75 Mg Tablet PO 75 mg DAILY MAXIMILIANO Administration Dextrose 12.5 gm 01/20/22 14:10 Dextrose 50% 25 Gm/50 Ml Syringe IV PUSH PRN PRN Hypoglycemia Protocol Escitalopram Oxalate 10 mg 01/21/22 09:00 01/24/22 08:19 Escitalopram Oxalate 10 Mg Tablet PO 10 mg DAILY MAXIMILIANO Administration Famotidine 20 mg 01/21/22 09:00 01/24/22 08:19 Famotidine 20 Mg Tablet PO 20 mg JOSE
[2022-01-24] MEDS: INSULIN ASPART (*BKC) 100 UNITS/ML SUB-Q (12:16)
[2022-01-24] MEDS: oxyCODONE HCL (*CRX) 5 MG TAB IR PO ×2 (14:27→20:57)
[2022-01-24 16:24] LABS: Glucose Point of Care 187 mg/dl (65-105)
[2022-01-24 20:01] LABS: Albumin 3.2 g/dL (3.8-4.8); Alpha 1 Globulin 0.4 g/dL (0.2-0.3); Alpha 2 Globulin 0.9 g/dL (0.5-0.9); Beta 1 Globulin 0.4 g/dL (0.4-0.6); Protein, Total 6.4 g/dL (6.1-8.1)
[2022-01-24 20:33] LABS: Glucose Point of Care 165 mg/dl (65-105)
[2022-01-24] MEDS: traZODone HCL 50 MG TABLET PO (20:57)
[2022-01-24] MEDS: INSULIN GLARGINE (*BKC) 100 UNITS/ML SUB-Q (20:58)
[2022-01-25] VITALS (10 sets, daily range): BP systolic 118–138; BP diastolic 70–81; PULSE 64–92; RESP 18–20; TEMP 36.3–36.9; O2SAT 97–100
[2022-01-25 02:51] LABS: Hepatitis B Core Ab Total Nonreactive (Nonreactive)
[2022-01-25] MEDS: oxyCODONE HCL (*CRX) 5 MG TAB IR PO ×2 (03:51→22:15)
[2022-01-25] MEDS: GABAPENTIN 400 MG CAPSULE 800 MG PO ×3 (06:55→22:04)
[2022-01-25 07:45] LABS: Glucose Point of Care 171 mg/dl (65-105)
--- NOTE | 2022-01-25 07:59 | PM.IMPN ---
Progress Note: A&P Assessment and Plan (1) CINDY (acute kidney injury): Code(s): N17.9 - Acute kidney failure, unspecified Status: Acute Assessment and Plan: Appreciate nephrology consultation, hold all nephrotoxic agents, trial of IV fluids, unsure of etiology of renal injury, suspect ATN compounded by obstructive uropathy Renal ultrasound shows normal kidneys without hydronephrosis but does indicate diffuse wall thickening of the bladder possibly from cystitis versus chronic outlet obstruction Monitor urine output closely Creatinine had improved to 6.6 yesterday, BUN 54, creat down to 4.5 today with BUN 41, UOP stable (2) Hypertension: Code(s): I10 - Essential (primary) hypertension Status: Chronic Assessment and Plan: Controlled with Norvasc and metoprolol (3) Hyperkalemia: Code(s): E87.5 - Hyperkalemia Status: Acute Assessment and Plan: Resolved, 4 today (4) Diabetes: Code(s): E11.9 - Type 2 diabetes mellitus without complications Status: Chronic Assessment and Plan: Continue Lantus, more hyperglycemic, will increase lantus to 10 units tonight and monitor, hold metformin, Accu-Cheks with sliding scale insulin Hemoglobin A1c is 8.3 (5) Depression: Code(s): F32.9 - Major depressive disorder, single episode, unspecified Status: Acute Assessment and Plan: Continue trazodone (6) Diastolic heart failure: Code(s): I50.30 - Unspecified diastolic (congestive) heart failure Status: Acute Assessment and Plan: Monitor fluid status closely Echo showed an EF of greater than 70%, grade 2 diastolic dysfunction, no significant valvular disease or pulmonary hypertension seen (7) GERD (gastroesophageal reflux disease): Code(s): K21.9 - Gastro-esophageal reflux disease without esophagitis Status: Acute Assessment and Plan: Continue H2 vic + PPI (8) Altered mental status: Code(s): R41.82 - Altered mental status, unspecified Status: Acute Assessment and Plan: Resolved MRI shows no acute changes, carotid ultrasound shows 50-69% stenosis of bilateral internal carotid arteries (9) Stercoral colitis: Code(s): K52.89 - Other specified noninfective gastroenteritis and colitis Status: Acute Assessment and Plan: cont bowel regimen Plan 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 DVT prophylaxis with heparin GI prophylaxis with PPI Code status DNR Subjective Date/time seen: 01/25/22 07:59 Interval history: No overnight events noted. No chest pain or shortness of breath. No nausea, vomiting or diarrhea. No fevers or chills. Patient still c/o hand tremoring and discomfort, improved from yesterday. Review of Systems Review of Systems: 12 point review of systems was assessed and was negative except as noted in the HPI Exam Narrative: General: No acute distress, alert and oriented per baseline HEENT: Atraumatic, normocephalic, mucous membranes moist CV: Regular rate and rhythm, S1, S2 Lungs: Clear to auscultation bilaterally, no rales or crackles noted, no wheezes, good air entry Abdomen: Soft, nontender, nondistended Extremities: Normal to inspection Skin: No rashes noted, no lesions or wounds seen Psych: Euthymic, normal affect Objective Data Vital Signs Vital Signs: Vital Signs - 24 hr 01/24/22 08:18 01/24/22 08:00 01/24/22 08:15 Temperature 97.4 F L Pulse Rate 66 68 Respiratory Rate 18 Blood Pressure 146/66 H Pulse Oximetry 100 97 Oxygen Delivery Room Air 01/24/22 08:00 01/24/22 12:05 01/24/22 12:00 Temperature 97.5 F L Pulse Rate 71 69 63 Respiratory Rate 22 H Blood Pressure 148/94 H Pulse Oximetry 100 Oxygen Delivery 01/24/22 21:48 01/24/22 20:00 01/25/22 00:00 Temperature 98.1 F Pulse Rate
[2022-01-25] MEDS: SENNA/DOCUSATE SODIUM TABLET 1 TAB PO ×2 (08:51→17:27)
[2022-01-25] MEDS: LORATADINE 10 MG TABLET PO (08:51)
[2022-01-25] MEDS: LIDOCAINE 5% PATCH 2 PATCH TRANSDERM (08:51)
[2022-01-25] MEDS: FAMOTIDINE 20 MG TABLET PO (08:51)
[2022-01-25] MEDS: HEPARIN SODIUM 5,000 UNITS/ML VIAL 5000 UNITS SUB-Q ×2 (08:51→22:03)
[2022-01-25] MEDS: FLUTICASONE PROPIONATE 0.05% NA SPR 16 GM BTL (*BKC) 1 SPRAY NASAL ×2 (08:51→22:04)
[2022-01-25] MEDS: ESCITALOPRAM OXALATE 10 MG TABLET PO (08:51)
[2022-01-25] MEDS: guaiFENesin 12 HR 600 MG TABCR 1200 MG PO ×2 (08:51→22:03)
[2022-01-25] MEDS: BACLOFEN 10 MG TABLET PO ×3 (08:52→17:27)
[2022-01-25] MEDS: CHOLECALCIFEROL 1,000 UNITS TABLET 4000 UNITS PO (08:52)
[2022-01-25] MEDS: CLOPIDOGREL BISULFATE 75 MG TABLET PO (08:52)
[2022-01-25] MEDS: amLODIPine BESYLATE 5 MG TABLET 10 MG PO (08:52)
[2022-01-25] MEDS: METOPROLOL TARTRATE 12.5 MG TABLET PO (08:52)
[2022-01-25] MEDS: BENZONATATE 100 MG CAPSULE 200 MG PO ×3 (08:52→17:27)
[2022-01-25] MEDS: oxyCODONE HCL (*CRX) 2.5 MG TAB IR PO ×2 (08:52→17:27)
[2022-01-25] MEDS: oxyCODONE/ACETAMINOPHEN (*CRX) 5-325 MG TABLET 1 TABLET PO ×2 (08:52→17:27)
[2022-01-25] MEDS: NEOMYCIN/POLYMYXIN/BACITRACIN OINTMENT 15 GM TUBE 1 APPLIC TOPICAL (08:53)
[2022-01-25 11:32] LABS: Glucose Point of Care 203 mg/dl (65-105)
[2022-01-25] MEDS: INSULIN ASPART (*BKC) 100 UNITS/ML SUB-Q (11:42)
[2022-01-25] MEDS: PANTOPRAZOLE SODIUM IV 40 MG VIAL IV PUSH (11:43)
--- NOTE | 2022-01-25 12:25 | PM.PNNEP ---
Progress Note: A&P Assessment and Plan (1) CINDY (acute kidney injury): Code(s): N17.9 - Acute kidney failure, unspecified Status: Acute Assessment and Plan: resolving/improving baseline creatinine normal about a year ago unclear over what period of time renal decline occurred... 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??) follow-up on serological testing urinalysis reordered (not done previously due to incontinence) holding diuretics and CHASIDY-I at this time follow trend of repeat labs and UOP (2) Hyperkalemia: Code(s): E87.5 - Hyperkalemia Status: Acute Assessment and Plan: resolved presumably secondary to CINDY/ARF likely worsened by diuretics and CHASIDY-I use follow repeat labs medical management PRN (3) Altered mental status: Code(s): R41.82 - Altered mental status, unspecified Status: Acute Assessment and Plan: resolved imaging noted follow trend (4) Hypertension: Code(s): I10 - Essential (primary) hypertension Status: Chronic Assessment and Plan: reasonable control for now follow trend of hemodynamics (5) Diabetes: Code(s): E11.9 - Type 2 diabetes mellitus without complications Status: Chronic Assessment and Plan: follow accuchecks glycemic control Will continue to follow. Subjective Date/time seen: 01/25/22 12:25 Continues to have good urine output with slow/steady improvement in renal function/creatinine; still with some hand tremor but seems better in comparison to yesterday; no other acute issues/events overnight or earlier this morning. Exam Narrative: General: WD/WN AA male in NAD Heart: normal S1 and S2; no rub Lungs: clear to auscultation Abdomen: soft, nontender, nondistended, positive bowel sounds Extremities: no cyanosis or clubbing; no edema Skin: warm and dry Objective Data Vital Signs Vital Signs: Vital Signs Temp Pulse Resp BP Pulse Ox O2 Del Method 01/25/22 12:00 72 01/25/22 08:00 36.3 C L 77 20 138/81 100 01/25/22 08:00 71 01/25/22 05:33 36.9 C 68 19 118/72 100 01/25/22 04:00 64 01/25/22 02:00 84 98 Autopap 01/24/22 22:17 80 97 Autopap 01/25/22 00:00 74 01/24/22 20:00 71 01/24/22 21:48 36.7 C 71 18 107/69 100 Intake/Output Intake/Output: Intake & Output 01/22/22 01/23/22 01/24/22 01/25/22 23:59 23:59 23:59 23:59 Intake Total 2220 1650 380 298 Output Total 1700 4900 1300 Balance 2220 -50 -4520 -1002 Meds/Results Medications: Active Medications Generic Name Dose Route Start Last Admin Trade Name Freq PRN Reason Stop Dose Admin Amlodipine Besylate 10 mg 01/21/22 09:00 01/25/22 08:52 Amlodipine Besylate 5 Mg Tablet PO 10 mg DAILY MAXIMILIANO Administration Baclofen 10 mg 01/22/22 13:00 01/25/22 14:26 Baclofen 10 Mg Tablet PO 10 mg TID MAXIMILIANO Administration Benzonatate 200 mg 01/22/22 17:00 01/25/22 14:26 Benzonatate 100 Mg Capsule PO 200 mg TID MAXIMILIANO Administration Clopidogrel Bisulfate 75 mg 01/21/22 09:00 01/25/22 08:52 Clopidogrel Bisulfate 75 Mg Tablet PO 75 mg DAILY MAXIMILIANO Administration Dextrose 12.5 gm 01/20/22 14:10 Dextrose 50% 25 Gm/50 Ml Syringe IV PUSH PRN PRN Hypoglycemia Protocol Escitalopram Oxalate 10 mg 01/21/22 09:00 01/25/22 08:51 Escitalopram Oxalate 10 Mg Tablet PO 10 mg DAILY MAXIMILIANO Administration Famotidine 20 mg 01/21/22 09:00 01/25/22 08:51 Famotidine 20 Mg Tablet PO 20 mg DAILY MAXIMILIANO Administr
--- NOTE | 2022-01-25 12:25 | P.PNNP_ITS ---
Progress Note: A&P Assessment and Plan (1) CINDY (acute kidney injury): Code(s): N17.9 - Acute kidney failure, unspecified Status: Acute Assessment and Plan: * resolving/improving * baseline creatinine normal about a year ago * unclear over what period of time renal decline occurred... 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??) * follow-up on serological testing * urinalysis reordered (not done previously due to incontinence) * holding diuretics and CHASIDY-I at this time * follow trend of repeat labs and UOP (2) Hyperkalemia: Code(s): E87.5 - Hyperkalemia Status: Acute Assessment and Plan: * resolved * presumably secondary to CINDY/ARF * likely worsened by diuretics and CHASIDY-I use * follow repeat labs * medical management PRN (3) Altered mental status: Code(s): R41.82 - Altered mental status, unspecified Status: Acute Assessment and Plan: * resolved * imaging noted * follow trend (4) Hypertension: Code(s): I10 - Essential (primary) hypertension Status: Chronic Assessment and Plan: * reasonable control for now * follow trend of hemodynamics (5) Diabetes: Code(s): E11.9 - Type 2 diabetes mellitus without complications Status: Chronic Assessment and Plan: * follow accuchecks * glycemic control Will continue to follow. Subjective Date/time seen: 01/25/22 12:25 Continues to have good urine output with slow/steady improvement in renal function/creatinine; still with some hand tremor but seems better in comparison to yesterday; no other acute issues/events overnight or earlier this morning. Exam Narrative: General: WD/WN AA male in NAD Heart: normal S1 and S2; no rub Lungs: clear to auscultation Abdomen: soft, nontender, nondistended, positive bowel sounds Extremities: no cyanosis or clubbing; no edema Skin: warm and dry Objective Data Vital Signs Vital Signs: Vital Signs Temp Pulse Resp BP Pulse Ox O2 Del Method 01/25/22 12:00 72 10/16/22 08:00 36.3 C L 77 20 138/81 100 01/25/22 08:00 71 01/25/22 05:33 36.9 C 68 19 118/72 100 01/25/22 04:00 64 01/25/22 02:00 84 98 Autopap 01/24/22 22:17 80 97 Autopap 01/25/22 00:00 74 01/24/22 20:00 71 01/24/22 21:48 36.7 C 71 18 107/69 100 Intake/Output Intake/Output: Intake & Output 01/22/22 01/23/22 01/24/22 01/25/22 23:59 23:59 23:59 23:59 Intake Total 2220 1650 380 298 Output Total 1700 4900 1300 Balance 2220 -50 -4520 -1002 Meds/Results Medications: Active Medications Generic Name Dose Route Start Last Admin Trade Name Freq PRN Reason Stop Dose Admin Amlodipine Besylate 10 mg 01/21/22 09:00 01/25/22 08:52
[2022-01-25 12:33] LABS: Basophils Percent Auto 0.2 % (0.2-1.2); Eosinophils Absolute Auto 0.3 K/mm3 (0-0.3); Eosinophils Percent Auto 2.3 % (0-4.4); Hematocrit 30.9 % (42.0-52.0); Hemoglobin 9.7 g/dL (14.0-18.0); Immature Granulocyte Absolute 0.04 K/mm3 (0.00-0.031); Immature Granulocyte Percent A 0.4 % (0-0.5); Lymphocytes Absolute Auto 1.86 K/mm3 (0.9-3.2); Lymphocytes Percent Auto 17.2 % (18.3-44.2); Mean Corpuscular HGB Conc 31.4 g/dl (32-36); Mean Corpuscular Hemoglobin 27.3 pg (26-34); Mean Platelet Volume 10.7 fl (7.4-10.4); Monocytes Absolute Auto 0.9 K/mm3 (0.1-0.6); Monocytes Percent Auto 8.5 % (2.6-8.5); Neutrophils Absolute Auto 7.7 K/mm3 (1.3-6.7); Neutrophils Percent Auto 71.4 % (45.5-73.1); Platelet Count Result 237 k/mm3 (150-375); Red Blood Count 3.55 M/mm3 (4.6-6.20); Red Cell Distribution Width 15.7 % (11.5-14.5); White Blood Count 10.8 K/mm3 (4.5-10.0)
[2022-01-25 13:03] LABS: Alanine Aminotransferase 58 U/L (6-50); Albumin Level 3.9 g/dL (3.5-5.1); Alkaline Phosphatase 122 U/L (38-126); Anion Gap 13 mmol/L (8-16); Aspartate Amino Transferase 60 U/L (17-59); Bilirubin,Total 0.5 mg/dL (0.2-1.3); Blood Urea Nitrogen 41 mg/dL (9-20); Calcium 8.5 mg/dL (8.4-10.2); Carbon Dioxide 24 mmol/L (22-30); Chloride 103 mmol/L (98-107); Estimated CRCL calculation 19 ml/min; Estimated Glomerular Filt Rate 17; Glucose 191 mg/dL (65-110); Sodium 140 mmol/L (137-145)
[2022-01-25 15:01] LABS: Kappa\\Lambda Light Chains 1.56 (0.26-1.65); Lambda Light Chain 68.7 mg/L (5.7-26.3)
[2022-01-25 16:29] LABS: Glucose Point of Care 180 mg/dl (65-105)
[2022-01-25] MEDS: polyethylene glycoL 3350 17 GM POWD.PACK PO (17:27)
[2022-01-25 22:01] LABS: Glucose Point of Care 226 mg/dl (65-105)
[2022-01-25] MEDS: INSULIN GLARGINE (*BKC) 100 UNITS/ML 10 UNITS SUB-Q (22:03)
[2022-01-25] MEDS: traZODone HCL 50 MG TABLET PO (22:04)
[2022-01-26] VITALS (7 sets, daily range): BP systolic 136–137; BP diastolic 65–95; PULSE 71–88; RESP 16–18; TEMP 36.3–36.6; O2SAT 99–100
--- NOTE | 2022-01-26 03:08 | PC.NURSE ---
Patient requested off CPAP at 3:00 on 01/26/2022
[2022-01-26 03:15] LABS: Add Urine Microscopic? YES; Appearance Urine Clear (Clear); Bacteria Urine Trace /hpf; Bilirubin Urine Negative (Negative); Blood Urine 1+ (Negative); Color Urine Yellow (Yellow); Glucose Urine UA 3+ mg/dL (Negative); Ketones Urine Negative (Negative); Leukocyte Esterase Ur Negative LEU/UL (Negative); Mucus Urine Rare /lpf; Nitrate Urine Negative (Negative); Protein Urine 1+ mg/dL (Negative); Specific Grav Ur 1.014 (1.001-1.035); Squamous Epithelial Cell Urine Rare /hpf (Few); Urobilinogen Urine Negative mg/dL (<2.0)
[2022-01-26] MEDS: oxyCODONE HCL (*CRX) 5 MG TAB IR PO ×4 (03:16→23:11)
[2022-01-26 03:42] LABS: Glucose Point of Care 174 mg/dl (65-105)
[2022-01-26 06:37] LABS: Basophils Percent Auto 0.2 % (0.2-1.2); Eosinophils Absolute Auto 0.2 K/mm3 (0-0.3); Eosinophils Percent Auto 2.8 % (0-4.4); Hematocrit 29.7 % (42.0-52.0); Hemoglobin 9.2 g/dL (14.0-18.0); Immature Granulocyte Absolute 0.04 K/mm3 (0.00-0.031); Immature Granulocyte Percent A 0.5 % (0-0.5); Lymphocytes Absolute Auto 2.23 K/mm3 (0.9-3.2); Lymphocytes Percent Auto 25.8 % (18.3-44.2); Mean Corpuscular Volume 87.1 fl (80-100); Mean Platelet Volume 10.7 fl (7.4-10.4); Monocytes Absolute Auto 0.8 K/mm3 (0.1-0.6); Monocytes Percent Auto 8.8 % (2.6-8.5); Neutrophils Absolute Auto 5.4 K/mm3 (1.3-6.7); Neutrophils Percent Auto 61.9 % (45.5-73.1); Platelet Count Result 229 k/mm3 (150-375); Red Blood Count 3.41 M/mm3 (4.6-6.20); Red Cell Distribution Width 15.7 % (11.5-14.5); White Blood Count 8.7 K/mm3 (4.5-10.0)
[2022-01-26] MEDS: GABAPENTIN 400 MG CAPSULE 800 MG PO ×3 (06:45→23:02)
[2022-01-26 06:53] LABS: Alanine Aminotransferase 61 U/L (6-50); Albumin Level 3.7 g/dL (3.5-5.1); Alkaline Phosphatase 107 U/L (38-126); Anion Gap 12 mmol/L (8-16); Aspartate Amino Transferase 52 U/L (17-59); Bilirubin,Total 0.3 mg/dL (0.2-1.3); Blood Urea Nitrogen 31 mg/dL (9-20); Calcium 8.2 mg/dL (8.4-10.2); Carbon Dioxide 28 mmol/L (22-30); Chloride 100 mmol/L (98-107); Estimated CRCL calculation 26 ml/min; Estimated Glomerular Filt Rate 24; Glucose 256 mg/dL (65-110); Potassium 3.5 mmol/L (3.4-5.0); Sodium 140 mmol/L (137-145)
[2022-01-26 08:05] LABS: Glucose Point of Care 236 mg/dl (65-105)
[2022-01-26] MEDS: INSULIN ASPART (*BKC) 100 UNITS/ML SUB-Q ×2 (08:22→16:45)
[2022-01-26] MEDS: FLUTICASONE PROPIONATE 0.05% NA SPR 16 GM BTL (*BKC) 1 SPRAY NASAL ×2 (08:24→23:00)
[2022-01-26] MEDS: SENNA/DOCUSATE SODIUM TABLET 1 TAB PO ×2 (08:24→16:42)
[2022-01-26] MEDS: PANTOPRAZOLE SODIUM IV 40 MG VIAL IV PUSH (08:24)
[2022-01-26] MEDS: OXYMETAZOLINE HCL 0.05% NAS 15 ML BTL (*BKC) 1 SPRAY NASAL (08:24)
[2022-01-26] MEDS: CLOPIDOGREL BISULFATE 75 MG TABLET PO (08:24)
[2022-01-26] MEDS: BENZONATATE 100 MG CAPSULE 200 MG PO ×3 (08:25→16:42)
[2022-01-26] MEDS: FAMOTIDINE 20 MG TABLET PO (08:25)
[2022-01-26] MEDS: CHOLECALCIFEROL 1,000 UNITS TABLET 4000 UNITS PO (08:25)
[2022-01-26] MEDS: polyethylene glycoL 3350 17 GM POWD.PACK PO ×2 (08:25→16:42)
[2022-01-26] MEDS: ESCITALOPRAM OXALATE 10 MG TABLET PO (08:25)
[2022-01-26] MEDS: LORATADINE 10 MG TABLET PO (08:25)
[2022-01-26] MEDS: guaiFENesin 12 HR 600 MG TABCR 1200 MG PO ×2 (08:26→23:00)
[2022-01-26] MEDS: BACLOFEN 10 MG TABLET PO ×3 (08:26→16:42)
[2022-01-26] MEDS: HEPARIN SODIUM 5,000 UNITS/ML VIAL 5000 UNITS SUB-Q ×2 (08:26→22:59)
[2022-01-26] MEDS: amLODIPine BESYLATE 5 MG TABLET 10 MG PO (08:26)
[2022-01-26] MEDS: METOPROLOL TARTRATE 12.5 MG TABLET PO (08:27)
[2022-01-26] MEDS: oxyCODONE HCL (*CRX) 2.5 MG TAB IR PO ×2 (08:30→16:42)
[2022-01-26] MEDS: oxyCODONE/ACETAMINOPHEN (*CRX) 5-325 MG TABLET 1 TABLET PO ×2 (08:30→16:42)
[2022-01-26] MEDS: NEOMYCIN/POLYMYXIN/BACITRACIN OINTMENT 15 GM TUBE 1 APPLIC TOPICAL (08:31)
--- NOTE | 2022-01-26 10:17 | P.PNNP_ITS ---
Progress Note: A&P Assessment and Plan (1) CINDY (acute kidney injury): Code(s): N17.9 - Acute kidney failure, unspecified Status: Acute Assessment and Plan: * creatinine down * baseline creatinine normal about a year ago * suspect ATN along with possible urinary retention given evidence to date * 800cc immediately drained after carranza catheter placement * good urine output with carranza in place * creatinine appears to have peaked/plateaued at 8.3mg/dl * renal scan with symmetric function but delayed clearance 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 * holding diuretics and CHASIDY-I at this time * Fluids at KVO * creatinine improved from 4.5-3.2. (2) Hyperkalemia: Code(s): E87.5 - Hyperkalemia Status: Acute Assessment and Plan: * resolved (3) Altered mental status: Code(s): R41.82 - Altered mental status, unspecified Status: Acute Assessment and Plan: * resolved (4) Hypertension: Code(s): I10 - Essential (primary) hypertension Status: Chronic Assessment and Plan: * Systolic up and down, between 100 and 140 for the most part. * He is on amlodipine, metoprolol. (5) Diabetes: Code(s): E11.9 - Type 2 diabetes mellitus without complications Status: Chronic Assessment and Plan: * On Accu-Cheks and sliding-scale insulin. Management per hospitalist. Plan He snores loudly. Will check an apnea link. Subjective Date/time seen: 01/26/22 10:17 Interval history: Jas Is feeling okay. He is a bit sleepy. No shortness of breath. Review of Systems Cardiovascular: Cardiovascular: Reports no additional cardiovascular complaints Respiratory: Respiratory: Reports no additional respiratory complaints Gastrointestinal: Gastrointestinal: Reports no additional gastrointestinal complaints Genitourinary: Genitourinary: Reports no additional male genitourinary complaints Exam Narrative: General: WD/WN AA male in NAD he snores when he sleeps. Heart: normal S1 and S2; no rub Lungs: clear bilaterally Abdomen: soft, nontender, nondistended, positive bowel sounds Extremities: no cyanosis or clubbing; no edema Skin: no rash Objective Data Vital Signs Vital Signs: Vital Signs - 24 hr 01/25/22 12:00 01/25/22 16:00 01/25/22 16:00 Temperature 36.4 C Pulse Rate 72 78 77 Respiratory Rate 20 Blood Pressure 136/72 Pulse Oximetry 100 Oxygen Delivery 01/25/22 22:00 01/25/22 23:39 01/25/22 21:30 Temperature 36.7 C Pulse Rate 92 80 Respiratory Rate 18 Blood Pressure 124/70 Pulse Oximetry 99 97 Oxygen Delivery Autopap Room Air 01/25/22 20:00 01/26/22 00:00 01/26/22 04:00 Temperature Pulse Rate 90 71 79 Respiratory Rate Blood Pressure Pulse Oximetry Oxygen Delivery 01/26/22 08:27 01/26/22 08:00 01/26/22 08:00 Temperature 36.3 C L Pulse Rate 80 88 Respiratory Rate 16
--- NOTE | 2022-01-26 10:17 | PM.PNNEP ---
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 holding diuretics and CHASIDY-I at this time Fluids at KVO creatinine improved from 4.5-3.2. (2) Hyperkalemia: Code(s): E87.5 - Hyperkalemia Status: Acute Assessment and Plan: resolved (3) Altered mental status: Code(s): R41.82 - Altered mental status, unspecified Status: Acute Assessment and Plan: resolved (4) Hypertension: Code(s): I10 - Essential (primary) hypertension Status: Chronic Assessment and Plan: Systolic up and down, between 100 and 140 for the most part. He is on amlodipine, metoprolol. (5) Diabetes: Code(s): E11.9 - Type 2 diabetes mellitus without complications Status: Chronic Assessment and Plan: On Accu-Cheks and sliding-scale insulin. Management per hospitalist. Plan He snores loudly. Will check an apnea link. Subjective Date/time seen: 01/26/22 10:17 Interval history: Jas Is feeling okay. He is a bit sleepy. No shortness of breath. Review of Systems Cardiovascular: Cardiovascular: Reports no additional cardiovascular complaints Respiratory: Respiratory: Reports no additional respiratory complaints Gastrointestinal: Gastrointestinal: Reports no additional gastrointestinal complaints Genitourinary: Genitourinary: Reports no additional male genitourinary complaints Exam Narrative: General: WD/WN AA male in NAD he snores when he sleeps. Heart: normal S1 and S2; no rub Lungs: clear bilaterally Abdomen: soft, nontender, nondistended, positive bowel sounds Extremities: no cyanosis or clubbing; no edema Skin: no rash Objective Data Vital Signs Vital Signs: Vital Signs - 24 hr 01/25/22 12:00 01/25/22 16:00 01/25/22 16:00 Temperature 36.4 C Pulse Rate 72 78 77 Respiratory Rate 20 Blood Pressure 136/72 Pulse Oximetry 100 Oxygen Delivery 01/25/22 22:00 01/25/22 23:39 01/25/22 21:30 Temperature 36.7 C Pulse Rate 92 80 Respiratory Rate 18 Blood Pressure 124/70 Pulse Oximetry 99 97 Oxygen Delivery Autopap Room Air 01/25/22 20:00 01/26/22 00:00 01/26/22 04:00 Temperature Pulse Rate 90 71 79 Respiratory Rate Blood Pressure Pulse Oximetry Oxygen Delivery 01/26/22 08:27 01/26/22 08:00 01/26/22 08:00 Temperature 36.3 C L Pulse Rate 80 88 Respiratory Rate 16 Blood Pressure 137/95 H Pulse Oximetry 100 Oxygen Delivery Room Air Intake/Output Intake/Output: Intake & Output 01/23/22 01/24/22 01/25/22 01/26/22 23:59 23:59 23:59 23:59 Intake Total 3507 009 9872 920 Output Total 1700 4900 2800 1500 [facility]50 -4520 -1602 -580 Meds/Results Medications: Active Medications Generic Name Dose Route Start Last Admin Trade Name Eric PRN Reason Stop Dose Admin Amlodipine Besylate 10 mg 01/21/22 09:00 01/26/22 08:26 Amlodipine Besylate 5 Mg Tablet PO 10 mg DAILY MAXIMILIANO Administration Baclofen 10 mg 01/22/22 13:00 01/26/22 08:26 Baclofen 10 Mg Tablet PO 10 mg TID MAXIMILIANO Administration Benzonatate 200 mg 01/22/22 17:00 01/26/22 08:25 Benzonatate 100 Mg Capsule PO 200 mg TID MAXIMILIANO Administration Clopidogrel Bisulfate 75 mg 01/21/22 09:0
--- NOTE | 2022-01-26 11:32 | PCNFU ---
Nutrition Follow-Up Complete: Increased Protein needs as related to wounds as evidenced by Stage II pressue ulcer. Goal:Adequate Intake of at least 75% of meals/supplements - GOAL BEING MET Pt current nutrition is Renal diet. Nutrition recommendation: Continue current diet and supplements. Cecil BID, Nepro BID Last recorded weight is 94.7 kg. Bowel Motility: +1 BM 01/26/22 Labs Reviewed: Hgb 9.2, Hct 29.7, BUN 31, Creat 3.2 Meds Noted: Amlodopine, Plavix, Pepcid, Novolog, Lantus, Metoprolol, protonix Skin: Stage II medial sacrum Additional Notes: Appetite and intakes are good. Will continue to monitor every 5 days.
[2022-01-26 11:46] LABS: Glucose Point of Care 194 mg/dl (65-105)
--- NOTE | 2022-01-26 16:19 | PM.IMPN ---
Progress Note: A&P Assessment and Plan (1) CINDY (acute kidney injury): Code(s): N17.9 - Acute kidney failure, unspecified Status: Acute Assessment and Plan: Appreciate nephrology consultation, hold all nephrotoxic agents, trial of IV fluids, unsure of etiology of renal injury, suspect ATN compounded by obstructive uropathy Renal ultrasound shows normal kidneys without hydronephrosis but does indicate diffuse wall thickening of the bladder possibly from cystitis versus chronic outlet obstruction Monitor urine output closely Creatinine continues to improve, down to 3.2 today (2) Hypertension: Code(s): I10 - Essential (primary) hypertension Status: Chronic Assessment and Plan: Controlled with Norvasc and metoprolol (3) Hyperkalemia: Code(s): E87.5 - Hyperkalemia Status: Acute Assessment and Plan: Resolved (4) Diabetes: Code(s): E11.9 - Type 2 diabetes mellitus without complications Status: Chronic Assessment and Plan: Continue Lantus, more hyperglycemic, will increase lantus to 10 units tonight and monitor, hold metformin, Accu-Cheks with sliding scale insulin Hemoglobin A1c is 8.3 (5) Depression: Code(s): F32.9 - Major depressive disorder, single episode, unspecified Status: Acute Assessment and Plan: Continue trazodone (6) Diastolic heart failure: Code(s): I50.30 - Unspecified diastolic (congestive) heart failure Status: Acute Assessment and Plan: Monitor fluid status closely Echo showed an EF of greater than 70%, grade 2 diastolic dysfunction, no significant valvular disease or pulmonary hypertension seen (7) GERD (gastroesophageal reflux disease): Code(s): K21.9 - Gastro-esophageal reflux disease without esophagitis Status: Acute Assessment and Plan: Continue H2 vic + PPI (8) Altered mental status: Code(s): R41.82 - Altered mental status, unspecified Status: Acute Assessment and Plan: Resolved MRI shows no acute changes, carotid ultrasound shows 50-69% stenosis of bilateral internal carotid arteries (9) Stercoral colitis: Code(s): K52.89 - Other specified noninfective gastroenteritis and colitis Status: Acute Assessment and Plan: cont bowel regimen Plan 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 DVT prophylaxis with heparin GI prophylaxis with PPI Code status DNR Subjective Date/time seen: 01/26/22 16:19 Interval history: No overnight events noted. No chest pain or shortness of breath. No nausea, vomiting or diarrhea. No fevers or chills. Patient is requesting a sleeping pill. He states he does not like the oxycodone and wants something different. Review of Systems Review of Systems: 12 point review of systems was assessed and was negative except as noted in the HPI Exam Narrative: General: No acute distress, alert and oriented per baseline HEENT: Atraumatic, normocephalic, mucous membranes moist CV: Regular rate and rhythm, S1, S2 Lungs: Clear to auscultation bilaterally, no rales or crackles noted, no wheezes, good air entry Abdomen: Soft, nontender, nondistended Extremities: Normal to inspection Skin: No rashes noted, no lesions or wounds seen Psych: Euthymic, normal affect Objective Data Vital Signs Vital Signs: Vital Signs - 24 hr 01/25/22 22:00 01/25/22 23:39 01/25/22 21:30 Temperature 98.1 F Pulse Rate 92 80 Respiratory Rate 18 Blood Pressure 124/70 Pulse Oximetry 99 97 Oxygen Delivery Autopap Room Air 01/25/22 20:00 01/26/22 00:00 01/26/22 04:00 Temperature Pulse Rate 90 71 79 Respiratory Rate Blood Pressure Pulse Oximetry Oxygen Delivery 01/26/22 08:27 01/26/22 08:00 01/26/22 08:00 Temperature 97.3 F L Pulse Rate 80 88 Respiratory Rate 16 Blood
[2022-01-26 16:36] LABS: Chloride Rand Ur 71 mmol/L (32-290); Chloride/Creatinine Rand Ur 86 (23-275); Creatinine Random Urine 83 mg/dL (20-320)
[2022-01-26 16:47] LABS: Glucose Point of Care 234 mg/dl (65-105)
[2022-01-26] MEDS: INSULIN GLARGINE (*BKC) 100 UNITS/ML 10 UNITS SUB-Q (22:59)
[2022-01-26] MEDS: traZODone HCL 50 MG TABLET PO (23:02)
[2022-01-26 23:44] LABS: Glucose Point of Care 264 mg/dl (65-105)
[2022-01-27] VITALS: BP 130/58; PULSE 76; RESP 18; TEMP 36.3; O2SAT 98
[2022-01-27] MEDS: oxyCODONE HCL (*CRX) 5 MG TAB IR PO (05:21)
[2022-01-27] MEDS: GABAPENTIN 400 MG CAPSULE 800 MG PO ×3 (05:22→21:07)
[2022-01-27 06:16] LABS: Basophils Percent Auto 0.2 % (0.2-1.2); Eosinophils Absolute Auto 0.2 K/mm3 (0-0.3); Hematocrit 28.1 % (42.0-52.0); Hemoglobin 8.8 g/dL (14.0-18.0); Immature Granulocyte Absolute 0.05 K/mm3 (0.00-0.031); Immature Granulocyte Percent A 0.6 % (0-0.5); Lymphocytes Absolute Auto 1.86 K/mm3 (0.9-3.2); Mean Corpuscular HGB Conc 31.3 g/dl (32-36); Mean Corpuscular Hemoglobin 27.4 pg (26-34); Mean Corpuscular Volume 87.5 fl (80-100); Mean Platelet Volume 10.5 fl (7.4-10.4); Monocytes Absolute Auto 0.9 K/mm3 (0.1-0.6); Monocytes Percent Auto 10.9 % (2.6-8.5); Neutrophils Absolute Auto 5.4 K/mm3 (1.3-6.7); Neutrophils Percent Auto 64.3 % (45.5-73.1); Platelet Count Result 245 k/mm3 (150-375); Red Blood Count 3.21 M/mm3 (4.6-6.20); Red Cell Distribution Width 15.6 % (11.5-14.5); White Blood Count 8.4 K/mm3 (4.5-10.0)
[2022-01-27 06:29] LABS: Alanine Aminotransferase 53 U/L (6-50); Albumin Level 3.5 g/dL (3.5-5.1); Alkaline Phosphatase 100 U/L (38-126); Anion Gap 8 mmol/L (8-16); Aspartate Amino Transferase 34 U/L (17-59); Bilirubin,Total 0.3 mg/dL (0.2-1.3); Blood Urea Nitrogen 24 mg/dL (9-20); Calcium 8.1 mg/dL (8.4-10.2); Carbon Dioxide 30 mmol/L (22-30); Chloride 104 mmol/L (98-107); Estimated CRCL calculation 39 ml/min; Estimated Glomerular Filt Rate 40; Glucose 181 mg/dL (65-110); Phosphorus 3.1 mg/dL (2.5-4.5); Potassium 3.8 mmol/L (3.4-5.0); Sodium 142 mmol/L (137-145)
[2022-01-27 08:00] VITALS: BP 133/61; PULSE 76; RESP 18; TEMP 37; O2SAT 99
[2022-01-27 08:27] LABS: Glucose Point of Care 130 mg/dl (65-105)
--- NOTE | 2022-01-27 09:02 | P.PNNP_ITS ---
Progress Note: A&P Assessment and Plan (1) CINDY (acute kidney injury): Code(s): N17.9 - Acute kidney failure, unspecified Status: Acute Assessment and Plan: * baseline creatinine normal about a year ago * suspect ATN along with possible urinary retention given evidence to date * 800cc immediately drained after carranza catheter placement * good urine output with carranza in place * creatinine appears to have peaked/plateaued at 8.3mg/dl * renal scan with symmetric function but delayed clearance 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 (on 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 * holding diuretics and CHASIDY-I at this time * Fluids at KVO * creatinine improved from 4.5 to 3.2 to 2.1. (2) Hyperkalemia: Code(s): E87.5 - Hyperkalemia Status: Acute Assessment and Plan: * resolved (3) Altered mental status: Code(s): R41.82 - Altered mental status, unspecified Status: Acute Assessment and Plan: * resolved (4) Hypertension: Code(s): I10 - Essential (primary) hypertension Status: Chronic Assessment and Plan: * Systolic up and down, between 100 and 140 for the most part. * He is on amlodipine, metoprolol. (5) Diabetes: Code(s): E11.9 - Type 2 diabetes mellitus without complications Status: Chronic Assessment and Plan: * On Accu-Cheks and sliding-scale insulin. Management per hospitalist. Plan Subjective Date/time seen: 01/27/22 09:02 Interval history: Jas Is feeling okay. More awake today. Eager for breakfast but the wrong food came. I informed the shotgun shell reprinting unit operator about this he also probably need some help eating. Exam Narrative: General: WD/WN AA male in NAD he snores when he sleeps. Heart: normal S1 and S2; no rub or gallop Lungs: clear to auscultation Abdomen: soft, nontender, nondistended, positive bowel sounds Extremities: no cyanosis or clubbing; no edema Skin: no rash or subcu nodules Objective Data Vital Signs Vital Signs: Vital Signs - 24 hr 01/26/22 12:00 01/26/22 16:00 01/26/22 16:00 Temperature 36.6 C Pulse Rate 73 77 77 Respiratory Rate 18 Blood Pressure 136/65 Pulse Oximetry 100 Oxygen Delivery 01/26/22 22:50 01/27/22 00:00 01/26/22 22:10 Temperature 36.3 C L Pulse Rate 74 76 Respiratory Rate 18 Blood Pressure 130/58 L Pulse Oximetry 99 98 Oxygen Delivery Room Air Room Air Intake/Output Intake/Output: Intake & Output 01/24/22 01/25/22 01/26/22 01/27/22 23:59 23:59 23:59 23:59 Intake Total 380 1198 2500 540 Output Total 4900 2800 2975 1150 [facility] -[phone] Meds/Results Medications: Active Medications Generic Name Dose Route Start Last Admin Trade Name Freq PRN Reason Stop Dose Admin Amlodipine Besylate 10 mg 01/21/22 09:00 01/26/22 08:26 Amlodipine Besylate 5 Mg Tablet PO 10 mg DAILY MAXIMILIANO Administration Baclofen 10 mg 01/22/22 13:00 01/26/22 16:42
--- NOTE | 2022-01-27 09:02 | PM.PNNEP ---
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 holding diuretics and CHASIDY-I at this time Fluids at KVO creatinine improved from 4.5 to 3.2 to 2.1. (2) Hyperkalemia: Code(s): E87.5 - Hyperkalemia Status: Acute Assessment and Plan: resolved (3) Altered mental status: Code(s): R41.82 - Altered mental status, unspecified Status: Acute Assessment and Plan: resolved (4) Hypertension: Code(s): I10 - Essential (primary) hypertension Status: Chronic Assessment and Plan: Systolic up and down, between 100 and 140 for the most part. He is on amlodipine, metoprolol. (5) Diabetes: Code(s): E11.9 - Type 2 diabetes mellitus without complications Status: Chronic Assessment and Plan: On Accu-Cheks and sliding-scale insulin. Management per hospitalist. Plan Subjective Date/time seen: 01/27/22 09:02 Interval history: Jas Is feeling okay. More awake today. Eager for breakfast but the wrong food came. I informed the community arts centre manager about this he also probably need some help eating. Exam Narrative: General: WD/WN AA male in NAD he snores when he sleeps. Heart: normal S1 and S2; no rub or gallop Lungs: clear to auscultation Abdomen: soft, nontender, nondistended, positive bowel sounds Extremities: no cyanosis or clubbing; no edema Skin: no rash or subcu nodules Objective Data Vital Signs Vital Signs: Vital Signs - 24 hr 01/26/22 12:00 01/26/22 16:00 01/26/22 16:00 Temperature 36.6 C Pulse Rate 73 77 77 Respiratory Rate 18 Blood Pressure 136/65 Pulse Oximetry 100 Oxygen Delivery 01/26/22 22:50 01/27/22 00:00 01/26/22 22:10 Temperature 36.3 C L Pulse Rate 74 76 Respiratory Rate 18 Blood Pressure 130/58 L Pulse Oximetry 99 98 Oxygen Delivery Room Air Room Air Intake/Output Intake/Output: Intake & Output 01/24/22 01/25/22 01/26/22 01/27/22 23:59 23:59 23:59 23:59 Intake Total 380 1198 2500 540 Output Total 4900 2800 2975 1150 [facility] -[phone] Meds/Results Medications: Active Medications Generic Name Dose Route Start Last Admin Trade Name Freq PRN Reason Stop Dose Admin Amlodipine Besylate 10 mg 01/21/22 09:00 01/26/22 08:26 Amlodipine Besylate 5 Mg Tablet PO 10 mg DAILY MAXIMILIANO Administration Baclofen 10 mg 01/22/22 13:00 01/26/22 16:42 Baclofen 10 Mg Tablet PO 10 mg TID MAXIMILIANO Administration Benzonatate 200 mg 01/22/22 17:00 01/26/22 16:42 Benzonatate 100 Mg Capsule PO 200 mg TID MAXIMILIANO Administration Clopidogrel Bisulfate 75 mg 01/21/22 09:00 01/26/22 08:24 Clopidogrel Bisulfate 75 Mg Tablet PO 75 mg DAILY MAXIMILIANO Administration Dextrose 12.5 gm 01/20/22 14:10 Dextrose 50% 25 Gm/50 Ml Syringe IV PUSH PRN PRN Hypoglycemia Protocol Escitalopram Oxalate 10 mg 01/21/22 09:00 01/26/22 08:25 Escitalopram Oxalate 10 Mg Tablet PO 10 mg DAILY MAXIMILIANO Administration Famotidine 20 mg 01/21/22 09:00 01/26/22 08:25 Famotidine 20 Mg Tablet PO 20 mg DAILY MAXIMILIANO Administration Fluticasone Propionate 1 spray 01/22/22 21:00 01/26/22 23:00 Fluticasone Propionate 0.05% Na Spr 16 Gm Btl (*Bkc) NASAL 1 spray
[2022-01-27] MEDS: NEOMYCIN/POLYMYXIN/BACITRACIN OINTMENT 15 GM TUBE 1 APPLIC TOPICAL (10:25)
[2022-01-27] MEDS: FLUTICASONE PROPIONATE 0.05% NA SPR 16 GM BTL (*BKC) 1 SPRAY NASAL ×2 (10:38→21:07)
[2022-01-27] MEDS: OXYMETAZOLINE HCL 0.05% NAS 15 ML BTL (*BKC) 1 SPRAY NASAL (10:38)
[2022-01-27] MEDS: HEPARIN SODIUM 5,000 UNITS/ML VIAL 5000 UNITS SUB-Q ×2 (10:39→21:06)
[2022-01-27] MEDS: polyethylene glycoL 3350 17 GM POWD.PACK PO ×2 (10:39→17:47)
[2022-01-27] MEDS: CHOLECALCIFEROL 1,000 UNITS TABLET 4000 UNITS PO (10:39)
[2022-01-27] MEDS: CLOPIDOGREL BISULFATE 75 MG TABLET PO (10:40)
[2022-01-27] MEDS: oxyCODONE HCL (*CRX) 2.5 MG TAB IR PO ×2 (10:40→17:46)
[2022-01-27] MEDS: LIDOCAINE 5% PATCH 2 PATCH TRANSDERM (10:40)
[2022-01-27] MEDS: guaiFENesin 12 HR 600 MG TABCR 1200 MG PO ×2 (10:41→21:06)
[2022-01-27] MEDS: BACLOFEN 10 MG TABLET PO ×3 (10:41→17:46)
[2022-01-27] MEDS: oxyCODONE/ACETAMINOPHEN (*CRX) 5-325 MG TABLET 1 TABLET PO ×2 (10:41→17:46)
[2022-01-27] MEDS: BENZONATATE 100 MG CAPSULE 200 MG PO ×3 (10:41→17:46)
[2022-01-27] MEDS: PANTOPRAZOLE SODIUM IV 40 MG VIAL IV PUSH (10:41)
[2022-01-27 10:42] VITALS: PULSE 72
[2022-01-27] MEDS: ESCITALOPRAM OXALATE 10 MG TABLET PO (10:42)
[2022-01-27] MEDS: amLODIPine BESYLATE 5 MG TABLET 10 MG PO (10:42)
[2022-01-27] MEDS: SENNA/DOCUSATE SODIUM TABLET 1 TAB PO ×2 (10:42→17:47)
[2022-01-27] MEDS: METOPROLOL TARTRATE 12.5 MG TABLET PO (10:42)
[2022-01-27] MEDS: FAMOTIDINE 20 MG TABLET PO (10:42)
[2022-01-27] MEDS: LORATADINE 10 MG TABLET PO (10:43)
[2022-01-27] MEDS: LIDOCAINE 5% PATCH 1 PATCH TRANSDERM (10:44)
[2022-01-27 11:45] LABS: Glucose Point of Care 179 mg/dl (65-105)
--- NOTE | 2022-01-27 15:34 | PM.IMPN ---
Progress Note: A&P Assessment and Plan (1) CINDY (acute kidney injury): Code(s): N17.9 - Acute kidney failure, unspecified Status: Acute Assessment and Plan: Appreciate nephrology consultation, hold all nephrotoxic agents, trial of IV fluids, unsure of etiology of renal injury, suspect ATN compounded by obstructive uropathy Renal ultrasound shows normal kidneys without hydronephrosis but does indicate diffuse wall thickening of the bladder possibly from cystitis versus chronic outlet obstruction Monitor urine output closely Creatinine continues to improve, down to 2 from 3 yesterday (2) Hypertension: Code(s): I10 - Essential (primary) hypertension Status: Chronic Assessment and Plan: Controlled with Norvasc and metoprolol (3) Hyperkalemia: Code(s): E87.5 - Hyperkalemia Status: Acute Assessment and Plan: Resolved (4) Diabetes: Code(s): E11.9 - Type 2 diabetes mellitus without complications Status: Chronic Assessment and Plan: Continue Lantus, more hyperglycemic, will increase lantus to 10 units tonight and monitor, hold metformin, Accu-Cheks with sliding scale insulin Hemoglobin A1c is 8.3 (5) Depression: Code(s): F32.9 - Major depressive disorder, single episode, unspecified Status: Acute Assessment and Plan: Continue trazodone (6) Diastolic heart failure: Code(s): I50.30 - Unspecified diastolic (congestive) heart failure Status: Acute Assessment and Plan: Monitor fluid status closely Echo showed an EF of greater than 70%, grade 2 diastolic dysfunction, no significant valvular disease or pulmonary hypertension seen (7) GERD (gastroesophageal reflux disease): Code(s): K21.9 - Gastro-esophageal reflux disease without esophagitis Status: Acute Assessment and Plan: Continue H2 vic + PPI (8) Altered mental status: Code(s): R41.82 - Altered mental status, unspecified Status: Acute Assessment and Plan: Resolved MRI shows no acute changes, carotid ultrasound shows 50-69% stenosis of bilateral internal carotid arteries (9) Stercoral colitis: Code(s): K52.89 - Other specified noninfective gastroenteritis and colitis Status: Acute Assessment and Plan: cont bowel regimen Plan 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 DVT prophylaxis with heparin GI prophylaxis with PPI Code status DNR Subjective Date/time seen: 01/27/22 15:34 Interval history: No overnight events noted. No chest pain or shortness of breath. No nausea, vomiting or diarrhea. No fevers or chills. Still having spasms in his hands or legs, significantly improved. Motion in his right hand is improved. Review of Systems Review of Systems: 12 point review of systems was assessed and was negative except as noted in the HPI Exam Narrative: General: No acute distress, alert and oriented per baseline HEENT: Atraumatic, normocephalic, mucous membranes moist CV: Regular rate and rhythm, S1, S2 Lungs: Clear to auscultation bilaterally, no rales or crackles noted, no wheezes, good air entry Abdomen: Soft, nontender, nondistended Extremities: Normal to inspection Skin: No rashes noted, no lesions or wounds seen Psych: Euthymic, normal affect Objective Data Vital Signs Vital Signs: Vital Signs - 24 hr 01/26/22 16:00 01/26/22 16:00 01/26/22 22:50 Temperature 97.8 F Pulse Rate 77 77 74 Respiratory Rate 18 Blood Pressure 136/65 Pulse Oximetry 100 99 Oxygen Delivery Room Air 01/27/22 00:00 01/26/22 22:10 01/27/22 08:00 Temperature 97.3 F L 98.6 F Pulse Rate 76 76 Respiratory Rate 18 18 Blood Pressure 130/58 L 133/61 Pulse Oximetry 98 99 Oxygen Delivery Room Air 01/27/22 10:42 Temperature Pulse Rate 72 Respiratory Rate Blood Pressure
[2022-01-27 16:45] LABS: Glucose Point of Care 130 mg/dl (65-105)
[2022-01-27] MEDS: traZODone HCL 50 MG TABLET PO (21:07)
[2022-01-27 21:14] LABS: Total Protein/Creatinine Ratio 1200 mg/g creat (25-148)
[2022-01-27] MEDS: INSULIN GLARGINE (*BKC) 100 UNITS/ML 10 UNITS SUB-Q (21:15)
[2022-01-27 21:17] LABS: Glucose Point of Care 256 mg/dl (65-105)
[2022-01-27 22:00] VITALS: BP 112/62; PULSE 80; RESP 18; TEMP 36.9; O2SAT 97
[2022-01-28] VITALS (8 sets, daily range): BP systolic 110–150; BP diastolic 62–73; PULSE 66–89; RESP 12–20; TEMP 36.8–37.1; O2SAT 94–98
[2022-01-28] MEDS: GABAPENTIN 400 MG CAPSULE 800 MG PO ×3 (05:54→21:27)
--- NOTE | 2022-01-28 06:45 | P.PNNP_ITS ---
Progress Note: A&P Assessment and Plan (1) CINDY (acute kidney injury): Code(s): N17.9 - Acute kidney failure, unspecified Status: Acute Assessment and Plan: * baseline creatinine normal about a year ago * suspect ATN along with possible urinary retention given evidence to date * 800cc immediately drained after carranza catheter placement * good urine output with carranza in place * creatinine appears to have peaked/plateaued at 8.3mg/dl * renal scan with symmetric function but delayed clearance 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 (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 * off IV fluids. * He is eating pretty well. * His creatinine came down to 2.0. Hopefully it will continue to dropped to normal. (2) Hyperkalemia: Code(s): E87.5 - Hyperkalemia Status: Acute Assessment and Plan: * resolved (3) Altered mental status: Code(s): R41.82 - Altered mental status, unspecified Status: Acute Assessment and Plan: * resolved (4) Hypertension: Code(s): I10 - Essential (primary) hypertension Status: Chronic Assessment and Plan: * Systolic Doing pretty well * He is on amlodipine, metoprolol. (5) Diabetes: Code(s): E11.9 - Type 2 diabetes mellitus without complications Status: Chronic Assessment and Plan: * On Accu-Cheks and sliding-scale insulin. Management per hospitalist. Plan Subjective Date/time seen: 01/28/22 06:45 Interval history: Jas Is feeling okay. No chest pain or shortness of breath Exam Narrative: General: WD/WN AA male in NAD he snores when he sleeps. Heart: normal S1 and S2; no rub or gallop Lungs: clear bilaterally Abdomen: soft, nontender, nondistended, positive bowel sounds Extremities: no cyanosis or clubbing; no edema Skin: no rash Objective Data Vital Signs Vital Signs: Vital Signs - 24 hr 01/27/22 22:00 01/28/22 00:45 01/27/22 20:00 Temperature 36.9 C Pulse Rate 80 74 Respiratory Rate 18 Blood Pressure 112/62 Pulse Oximetry 97 95 Oxygen Delivery Autopap Room Air 01/28/22 03:03 01/28/22 06:00 01/28/22 09:18 Temperature 37.1 C Pulse Rate 76 89 88 Respiratory Rate 20 Blood Pressure 150/73 H Pulse Oximetry 94 95 Oxygen Delivery Autopap 01/28/22 09:32 01/28/22 14:00 Temperature 36.8 C Pulse Rate 66 Respiratory Rate 20 12 Blood Pressure 110/62 Pulse Oximetry 95 98 Oxygen Delivery Room Air Intake/Output Intake/Output: Intake & Output 01/25/22 01/26/22 01/27/22 01/28/22 23:59 23:59 23:59 23:59 Intake Total 1198 2500 1540 680 Output Total 2800 9905 2020 550 [facility] -[phone] 130 Meds/Results Medications: Active Medications Generic Name Dose Route Start Last Admin Trade Name Freq PRN Reason Stop Dose Admin Amlodipine Besylate 10 mg 01/21/22 09:00 01/28/22 09:18 Amlodipine Besylat
--- NOTE | 2022-01-28 06:45 | PM.PNNEP ---
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 off IV fluids. He is eating pretty well. His creatinine came down to 2.0. Hopefully it will continue to dropped to normal. (2) Hyperkalemia: Code(s): E87.5 - Hyperkalemia Status: Acute Assessment and Plan: resolved (3) Altered mental status: Code(s): R41.82 - Altered mental status, unspecified Status: Acute Assessment and Plan: resolved (4) Hypertension: Code(s): I10 - Essential (primary) hypertension Status: Chronic Assessment and Plan: Systolic Doing pretty well He is on amlodipine, metoprolol. (5) Diabetes: Code(s): E11.9 - Type 2 diabetes mellitus without complications Status: Chronic Assessment and Plan: On Accu-Cheks and sliding-scale insulin. Management per hospitalist. Plan Subjective Date/time seen: 01/28/22 06:45 Interval history: Javono Is feeling okay. No chest pain or shortness of breath Exam Narrative: General: WD/WN AA male in NAD he snores when he sleeps. Heart: normal S1 and S2; no rub or gallop Lungs: clear bilaterally Abdomen: soft, nontender, nondistended, positive bowel sounds Extremities: no cyanosis or clubbing; no edema Skin: no rash Objective Data Vital Signs Vital Signs: Vital Signs - 24 hr 01/27/22 22:00 01/28/22 00:45 01/27/22 20:00 Temperature 36.9 C Pulse Rate 80 74 Respiratory Rate 18 Blood Pressure 112/62 Pulse Oximetry 97 95 Oxygen Delivery Autopap Room Air 01/28/22 03:03 01/28/22 06:00 01/28/22 09:18 Temperature 37.1 C Pulse Rate 76 89 88 Respiratory Rate 20 Blood Pressure 150/73 H Pulse Oximetry 94 95 Oxygen Delivery Autopap 01/28/22 09:32 01/28/22 14:00 Temperature 36.8 C Pulse Rate 66 Respiratory Rate 20 12 Blood Pressure 110/62 Pulse Oximetry 95 98 Oxygen Delivery Room Air Intake/Output Intake/Output: Intake & Output 01/25/22 01/26/22 01/27/22 01/28/22 23:59 23:59 23:59 23:59 Intake Total 1198 2500 1540 680 Output Total 2800 2975 2025 550 [facility] -1601 -[phone] Meds/Results Medications: Active Medications Generic Name Dose Route Start Last Admin Trade Name Freq PRN Reason Stop Dose Admin Amlodipine Besylate 10 mg 01/21/22 09:00 01/28/22 09:18 Amlodipine Besylate 5 Mg Tablet PO 10 mg DAILY MAXIMILIANO Administration Baclofen 10 mg 01/22/22 13:00 01/28/22 13:16 Baclofen 10 Mg Tablet PO 10 mg TID MAXIMILIANO Administration Benzonatate 200 mg 01/22/22 17:00 01/28/22 13:16 Benzonatate 100 Mg Capsule PO 200 mg TID MAXIMILIANO Administration Clopidogrel Bisulfate 75 mg 01/21/22 09:00 01/28/22 09:17 Clopidogrel Bisulfate 75 Mg Tablet PO 75 mg DAILY MAXIMILIANO Administration Dextrose 12.5 gm 01/20/22 14:10 Dextrose 50% 25 Gm/50 Ml Syringe IV PUSH PRN PRN Hypoglycemia Protocol Escitalopram Oxalate 10 mg 01/21/22 09:00 01/28/22 09:19 Escitalopram Oxalate 10 Mg Tablet PO 10 mg DAILY MAXIMILIANO Administration Famotidine 20 mg 01/21/22 09:00 01/28/22 09:18 Famotidine 20 Mg Tablet PO 20 mg DAILY MAXIMILIANO Administration Fluticasone Propionate 1 spray 01/22/22 21:00 01/28/22 09:17 Fluticasone Propionate 0.05% Na Sp
[2022-01-28 06:46] LABS: Basophils Percent Auto 0.2 % (0.2-1.2); Eosinophils Absolute Auto 0.1 K/mm3 (0-0.3); Eosinophils Percent Auto 1.6 % (0-4.4); Hematocrit 27.4 % (42.0-52.0); Hemoglobin 8.4 g/dL (14.0-18.0); Immature Granulocyte Absolute 0.04 K/mm3 (0.00-0.031); Immature Granulocyte Percent A 0.5 % (0-0.5); Lymphocytes Absolute Auto 2.38 K/mm3 (0.9-3.2); Lymphocytes Percent Auto 27.5 % (18.3-44.2); Mean Corpuscular HGB Conc 30.7 g/dl (32-36); Mean Corpuscular Hemoglobin 27.3 pg (26-34); Mean Platelet Volume 10.8 fl (7.4-10.4); Monocytes Absolute Auto 0.9 K/mm3 (0.1-0.6); Monocytes Percent Auto 9.8 % (2.6-8.5); Neutrophils Absolute Auto 5.2 K/mm3 (1.3-6.7); Neutrophils Percent Auto 60.4 % (45.5-73.1); Platelet Count Result 268 k/mm3 (150-375); Red Blood Count 3.08 M/mm3 (4.6-6.20); Red Cell Distribution Width 15.9 % (11.5-14.5); White Blood Count 8.6 K/mm3 (4.5-10.0)
[2022-01-28 06:51] LABS: Alanine Aminotransferase 40 U/L (6-50); Albumin Level 3.3 g/dL (3.5-5.1); Alkaline Phosphatase 98 U/L (38-126); Anion Gap 7 mmol/L (8-16); Aspartate Amino Transferase 26 U/L (17-59); Bilirubin,Total 0.3 mg/dL (0.2-1.3); Blood Urea Nitrogen 21 mg/dL (9-20); Calcium 8.6 mg/dL (8.4-10.2); Carbon Dioxide 29 mmol/L (22-30); Chloride 105 mmol/L (98-107); Estimated CRCL calculation 41 ml/min; Estimated Glomerular Filt Rate 42; Glucose 135 mg/dL (65-110); Phosphorus 3.7 mg/dL (2.5-4.5); Sodium 141 mmol/L (137-145)
[2022-01-28 07:43] LABS: Glucose Point of Care 152 mg/dl (65-105)
[2022-01-28] MEDS: FLUTICASONE PROPIONATE 0.05% NA SPR 16 GM BTL (*BKC) 1 SPRAY NASAL ×2 (09:17→21:27)
[2022-01-28] MEDS: guaiFENesin 12 HR 600 MG TABCR 1200 MG PO ×2 (09:17→21:27)
[2022-01-28] MEDS: SENNA/DOCUSATE SODIUM TABLET 1 TAB PO ×2 (09:17→16:51)
[2022-01-28] MEDS: CLOPIDOGREL BISULFATE 75 MG TABLET PO (09:17)
[2022-01-28] MEDS: PANTOPRAZOLE SODIUM IV 40 MG VIAL IV PUSH (09:17)
[2022-01-28] MEDS: FAMOTIDINE 20 MG TABLET PO (09:18)
[2022-01-28] MEDS: BACLOFEN 10 MG TABLET PO ×3 (09:18→16:51)
[2022-01-28] MEDS: METOPROLOL TARTRATE 12.5 MG TABLET PO (09:18)
[2022-01-28] MEDS: amLODIPine BESYLATE 5 MG TABLET 10 MG PO (09:18)
[2022-01-28] MEDS: ESCITALOPRAM OXALATE 10 MG TABLET PO (09:19)
[2022-01-28] MEDS: HEPARIN SODIUM 5,000 UNITS/ML VIAL 5000 UNITS SUB-Q ×2 (09:19→21:27)
[2022-01-28] MEDS: LORATADINE 10 MG TABLET PO (09:19)
[2022-01-28] MEDS: BENZONATATE 100 MG CAPSULE 200 MG PO ×3 (09:20→16:50)
[2022-01-28] MEDS: CHOLECALCIFEROL 1,000 UNITS TABLET 4000 UNITS PO (09:20)
[2022-01-28] MEDS: LIDOCAINE 5% PATCH 1 PATCH TRANSDERM (09:22)
[2022-01-28] MEDS: LIDOCAINE 5% PATCH 2 PATCH TRANSDERM (09:22)
[2022-01-28] MEDS: polyethylene glycoL 3350 17 GM POWD.PACK PO ×2 (09:24→16:52)
[2022-01-28] MEDS: NEOMYCIN/POLYMYXIN/BACITRACIN OINTMENT 15 GM TUBE 1 APPLIC TOPICAL (09:24)
[2022-01-28] MEDS: oxyCODONE/ACETAMINOPHEN (*CRX) 5-325 MG TABLET 1 TABLET PO ×2 (09:32→16:49)
[2022-01-28] MEDS: oxyCODONE HCL (*CRX) 2.5 MG TAB IR PO ×2 (09:32→16:49)
[2022-01-28 10:46] LABS: Anti Glomerular Basement Memb <1.0 AI (<1.0)
[2022-01-28 11:22] LABS: Glucose Point of Care 210 mg/dl (65-105)
[2022-01-28] MEDS: INSULIN ASPART (*BKC) 100 UNITS/ML SUB-Q (11:36)
--- NOTE | 2022-01-28 14:09 | PM.IMPN ---
Progress Note: A&P Assessment and Plan (1) CINDY (acute kidney injury): Code(s): N17.9 - Acute kidney failure, unspecified Status: Acute Assessment and Plan: Appreciate nephrology consultation, hold all nephrotoxic agents, trial of IV fluids, unsure of etiology of renal injury, suspect ATN compounded by obstructive uropathy Renal ultrasound shows normal kidneys without hydronephrosis but does indicate diffuse wall thickening of the bladder possibly from cystitis versus chronic outlet obstruction Monitor urine output closely Creatinine continues to improve, baseline creatinine 1 from 2020 (2) Hypertension: Code(s): I10 - Essential (primary) hypertension Status: Chronic Assessment and Plan: Controlled with Norvasc and metoprolol (3) Hyperkalemia: Code(s): E87.5 - Hyperkalemia Status: Acute Assessment and Plan: Resolved (4) Diabetes: Code(s): E11.9 - Type 2 diabetes mellitus without complications Status: Chronic Assessment and Plan: Continue Lantus, and SSI Cheks with sliding scale insulin Hemoglobin A1c is 8.3 (5) Depression: Code(s): F32.9 - Major depressive disorder, single episode, unspecified Status: Acute Assessment and Plan: Continue trazodone (6) Diastolic heart failure: Code(s): I50.30 - Unspecified diastolic (congestive) heart failure Status: Acute Assessment and Plan: Monitor fluid status closely Echo showed an EF of greater than 70%, grade 2 diastolic dysfunction, no significant valvular disease or pulmonary hypertension seen (7) GERD (gastroesophageal reflux disease): Code(s): K21.9 - Gastro-esophageal reflux disease without esophagitis Status: Acute Assessment and Plan: Continue H2 vic + PPI (8) Altered mental status: Code(s): R41.82 - Altered mental status, unspecified Status: Acute Assessment and Plan: Resolved MRI shows no acute changes, carotid ultrasound shows 50-69% stenosis of bilateral internal carotid arteries (9) Stercoral colitis: Code(s): K52.89 - Other specified noninfective gastroenteritis and colitis Status: Acute Assessment and Plan: cont bowel regimen Plan 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 DVT prophylaxis with heparin GI prophylaxis with PPI Code status DNR Subjective Date/time seen: 01/28/22 14:09 Interval history: No overnight events noted. Delete good night sleep last night. Sleepy this afternoon. No other complaints no nausea vomiting abdominal pain shortness of breath or chest pain. No fever chills. Review of Systems Review of Systems: All systems reviewed & are unremarkable except as noted in HPI and below Exam Narrative: General: No acute distress, alert and oriented per baseline HEENT: Atraumatic, normocephalic, mucous membranes moist CV: Regular rate and rhythm, S1, S2 Lungs: Clear to auscultation bilaterally, no rales or crackles noted, no wheezes, good air entry Abdomen: Soft, nontender, nondistended Extremities: Normal to inspection Paraplegic at baseline Skin: No rashes noted, no lesions or wounds seen Psych: Euthymic, normal affect Objective Data Vital Signs Vital Signs: Vital Signs - 24 hr 01/27/22 22:00 01/28/22 00:45 01/27/22 20:00 Temperature 98.5 F Pulse Rate 80 74 Respiratory Rate 18 Blood Pressure 112/62 Pulse Oximetry 97 95 Oxygen Delivery Autopap Room Air 01/28/22 03:03 01/28/22 06:00 01/28/22 09:18 Temperature 98.7 F Pulse Rate 76 89 88 Respiratory Rate 20 Blood Pressure 150/73 H Pulse Oximetry 94 95 Oxygen Delivery Autopap 01/28/22 09:32 Temperature Pulse Rate Respiratory Rate 20 Blood Pressure Pulse Oximetry 95 Oxygen Delivery Room Air Intake/Output Intake/Output: Intake & Output 01/25/22 1
[2022-01-28] MEDS: oxyCODONE HCL (*CRX) 5 MG TAB IR PO (14:40)
[2022-01-28 16:24] LABS: Glucose Point of Care 169 mg/dl (65-105)
[2022-01-28] MEDS: INSULIN GLARGINE (*BKC) 100 UNITS/ML 10 UNITS SUB-Q (21:24)
[2022-01-28] MEDS: traZODone HCL 50 MG TABLET PO (21:28)
[2022-01-29] VITALS: BP 126/63; PULSE 70; RESP 18; TEMP 36.3; O2SAT 98
[2022-01-29 03:02] VITALS: PULSE 77; O2SAT 95
[2022-01-29] MEDS: GABAPENTIN 400 MG CAPSULE 800 MG PO ×2 (06:00→12:59)
[2022-01-29 06:34] LABS: Basophils Percent Auto 0.2 % (0.2-1.2); Eosinophils Absolute Auto 0.2 K/mm3 (0-0.3); Eosinophils Percent Auto 1.8 % (0-4.4); Hematocrit 27.8 % (42.0-52.0); Hemoglobin 8.6 g/dL (14.0-18.0); Immature Granulocyte Absolute 0.05 K/mm3 (0.00-0.031); Immature Granulocyte Percent A 0.6 % (0-0.5); Lymphocytes Absolute Auto 2.24 K/mm3 (0.9-3.2); Lymphocytes Percent Auto 25.6 % (18.3-44.2); Mean Corpuscular HGB Conc 30.9 g/dl (32-36); Mean Corpuscular Hemoglobin 27.4 pg (26-34); Mean Corpuscular Volume 88.5 fl (80-100); Mean Platelet Volume 10.2 fl (7.4-10.4); Monocytes Absolute Auto 0.8 K/mm3 (0.1-0.6); Monocytes Percent Auto 9.4 % (2.6-8.5); Neutrophils Absolute Auto 5.5 K/mm3 (1.3-6.7); Neutrophils Percent Auto 62.4 % (45.5-73.1); Platelet Count Result 278 k/mm3 (150-375); Red Blood Count 3.14 M/mm3 (4.6-6.20); Red Cell Distribution Width 15.6 % (11.5-14.5); White Blood Count 8.8 K/mm3 (4.5-10.0)
[2022-01-29 07:01] LABS: Alanine Aminotransferase 33 U/L (6-50); Albumin Level 3.5 g/dL (3.5-5.1); Alkaline Phosphatase 103 U/L (38-126); Anion Gap 6 mmol/L (8-16); Aspartate Amino Transferase 21 U/L (17-59); Bilirubin,Total 0.4 mg/dL (0.2-1.3); Blood Urea Nitrogen 21 mg/dL (9-20); Calcium 8.7 mg/dL (8.4-10.2); Carbon Dioxide 29 mmol/L (22-30); Chloride 105 mmol/L (98-107); Estimated CRCL calculation 46 ml/min; Estimated Glomerular Filt Rate 48; Glucose 152 mg/dL (65-110); Potassium 4.1 mmol/L (3.4-5.0); Sodium 140 mmol/L (137-145)
--- NOTE | 2022-01-29 07:24 | P.PNNP_ITS ---
Progress Note: A&P Assessment and Plan (1) CINDY (acute kidney injury): Code(s): N17.9 - Acute kidney failure, unspecified Status: Acute Assessment and Plan: * baseline creatinine normal about a year ago * suspect ATN along with possible urinary retention given evidence to date * 800cc immediately drained after carranza catheter placement * good urine output with carranza in place * creatinine appears to have peaked/plateaued at 8.3mg/dl * renal scan with symmetric function but delayed clearance 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 (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 * He is eating pretty well. * His creatinine came down to 1.8. Hopefully it will continue to dropped to normal. * discussed with Dr.Shrestha. hilliard for discharge. He can follow-up with his primary care doctor or see Dr. Jordan in the office if there is a question. (2) Hyperkalemia: Code(s): E87.5 - Hyperkalemia Status: Acute Assessment and Plan: * resolved (3) Altered mental status: Code(s): R41.82 - Altered mental status, unspecified Status: Acute Assessment and Plan: * resolved (4) Hypertension: Code(s): I10 - Essential (primary) hypertension Status: Chronic Assessment and Plan: * Systolic Doing pretty well * He is on amlodipine, metoprolol. (5) Diabetes: Code(s): E11.9 - Type 2 diabetes mellitus without complications Status: Chronic Assessment and Plan: * On Accu-Cheks and sliding-scale insulin. Management per hospitalist. Plan Subjective Date/time seen: 01/29/22 07:24 Interval history: Jas Is feeling okay. No chest pain or shortness of breath eager for discharge. he wants to know if carranza can come out Exam Narrative: General: WD/WN AA male in NAD he snores when he sleeps. Heart: normal S1 and S2; no rub Lungs: clear bilaterally Abdomen: soft, nontender, nondistended, positive bowel sounds Extremities: no cyanosis or clubbing; no edema Skin: No rash or subcu nodules Objective Data Vital Signs Vital Signs: Vital Signs - 24 hr 01/28/22 09:18 01/28/22 09:32 01/28/22 14:00 Temperature 36.8 C Pulse Rate 88 66 Respiratory Rate 20 12 Blood Pressure 110/62 Pulse Oximetry 95 98 Oxygen Delivery Room Air Fraction of Inspired Oxygen 01/28/22 20:00 01/28/22 23:28 01/28/22 23:28 Temperature Pulse Rate 66 75 Respiratory Rate 12 Blood Pressure Pulse Oximetry 98 94 94 Oxygen Delivery Room Air Autopap Autopap Fraction of Inspired Oxygen 21 01/29/22 00:00 01/29/22 03:02 Temperature 36.3 C L Pulse Rate 70 77 Respiratory Rate 18 Blood Pressure 126/63 Pulse Oximetry 98 95 Oxygen Delivery Autopap Fraction of Inspired Oxygen Intake/Output Intake/Output: Intake & Output 01/26/22 01/27/22 01/28/22 01/29/22 23:59 23:59 23:59 23:59 Intake Total 2500 1540 1520 0 Output Total 6455 5 1500 1000 aCthy
--- NOTE | 2022-01-29 07:24 | PM.PNNEP ---
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 He is eating pretty well. His creatinine came down to 1.8. Hopefully it will continue to dropped to normal. discussed with Dr.Shrestha. hilliard for discharge. He can follow-up with his primary care doctor or see Dr. Jordan in the office if there is a question. (2) Hyperkalemia: Code(s): E87.5 - Hyperkalemia Status: Acute Assessment and Plan: resolved (3) Altered mental status: Code(s): R41.82 - Altered mental status, unspecified Status: Acute Assessment and Plan: resolved (4) Hypertension: Code(s): I10 - Essential (primary) hypertension Status: Chronic Assessment and Plan: Systolic Doing pretty well He is on amlodipine, metoprolol. (5) Diabetes: Code(s): E11.9 - Type 2 diabetes mellitus without complications Status: Chronic Assessment and Plan: On Accu-Cheks and sliding-scale insulin. Management per hospitalist. Plan Subjective Date/time seen: 01/29/22 07:24 Interval history: Jas Is feeling okay. No chest pain or shortness of breath eager for discharge. he wants to know if carranza can come out Exam Narrative: General: WD/WN AA male in NAD he snores when he sleeps. Heart: normal S1 and S2; no rub Lungs: clear bilaterally Abdomen: soft, nontender, nondistended, positive bowel sounds Extremities: no cyanosis or clubbing; no edema Skin: No rash or subcu nodules Objective Data Vital Signs Vital Signs: Vital Signs - 24 hr 01/28/22 09:18 01/28/22 09:32 01/28/22 14:00 Temperature 36.8 C Pulse Rate 88 66 Respiratory Rate 20 12 Blood Pressure 110/62 Pulse Oximetry 95 98 Oxygen Delivery Room Air Fraction of Inspired Oxygen 01/28/22 20:00 01/28/22 23:28 01/28/22 23:28 Temperature Pulse Rate 66 75 Respiratory Rate 12 Blood Pressure Pulse Oximetry 98 94 94 Oxygen Delivery Room Air Autopap Autopap Fraction of Inspired Oxygen 21 01/29/22 00:00 01/29/22 03:02 Temperature 36.3 C L Pulse Rate 70 77 Respiratory Rate 18 Blood Pressure 126/63 Pulse Oximetry 98 95 Oxygen Delivery Autopap Fraction of Inspired Oxygen Intake/Output Intake/Output: Intake & Output 01/26/22 01/27/22 01/28/22 01/29/22 23:59 23:59 23:59 23:59 Intake Total 2500 1540 1520 0 Output Total 2975 2025 1500 1000 Balance -475 -485 20 -1000 Meds/Results Medications: Active Medications Generic Name Dose Route Start Last Admin Trade Name Joseq PRN Reason Stop Dose Admin Amlodipine Besylate 10 mg 01/21/22 09:00 01/28/22 09:18 Amlodipine Besylate 5 Mg Tablet PO 10 mg DAILY MAXIMILIANO Administration Baclofen 10 mg 01/22/22 13:00 01/28/22 16:51 Baclofen 10 Mg Tablet PO 10 mg TID MAXIMILIANO Administration Benzonatate 200 mg 01/22/22 17:00 01/28/22 16:50 Benzonatate 100 Mg Capsule PO 200 mg TID MAXIMILIANO Administration Clopidogrel Bisulfate 75 mg 01/21/22 09:00 01/28/22 09:17 Clopidogrel Bisulfate 75 Mg Tablet PO 75 mg DAILY MAXIMILIANO Administration Dextrose 12.5 gm 01/20/22 14:10 Dextrose 50% 25 Gm/50 Ml Syringe IV PUSH PRN PRN Hypoglycemia Protocol Escitalopram Oxalate 10 mg 01/21/22 09:00 01/28/22 09:
[2022-01-29 08:07] LABS: Glucose Point of Care 145 mg/dl (65-105)
[2022-01-29 09:55] VITALS: PULSE 80
[2022-01-29] MEDS: amLODIPine BESYLATE 5 MG TABLET 10 MG PO (09:55)
[2022-01-29] MEDS: polyethylene glycoL 3350 17 GM POWD.PACK PO ×2 (09:55→17:17)
[2022-01-29] MEDS: METOPROLOL TARTRATE 12.5 MG TABLET PO (09:55)
[2022-01-29] MEDS: HEPARIN SODIUM 5,000 UNITS/ML VIAL 5000 UNITS SUB-Q (09:56)
[2022-01-29] MEDS: guaiFENesin 12 HR 600 MG TABCR 1200 MG PO (09:56)
[2022-01-29] MEDS: CHOLECALCIFEROL 1,000 UNITS TABLET 4000 UNITS PO (09:56)
[2022-01-29] MEDS: BENZONATATE 100 MG CAPSULE 200 MG PO ×3 (09:56→17:17)
[2022-01-29] MEDS: CLOPIDOGREL BISULFATE 75 MG TABLET PO (09:56)
[2022-01-29] MEDS: PANTOPRAZOLE SODIUM IV 40 MG VIAL IV PUSH (09:56)
[2022-01-29] MEDS: SENNA/DOCUSATE SODIUM TABLET 1 TAB PO ×2 (09:56→17:16)
[2022-01-29] MEDS: BACLOFEN 10 MG TABLET PO ×3 (09:57→17:16)
[2022-01-29] MEDS: FAMOTIDINE 20 MG TABLET PO (09:57)
[2022-01-29] MEDS: FLUTICASONE PROPIONATE 0.05% NA SPR 16 GM BTL (*BKC) 1 SPRAY NASAL (09:58)
[2022-01-29] MEDS: ESCITALOPRAM OXALATE 10 MG TABLET PO (09:58)
[2022-01-29] MEDS: LIDOCAINE 5% PATCH 2 PATCH TRANSDERM (09:58)
[2022-01-29] MEDS: LORATADINE 10 MG TABLET PO (09:58)
[2022-01-29] MEDS: LIDOCAINE 5% PATCH 1 PATCH TRANSDERM (09:58)
[2022-01-29] MEDS: NEOMYCIN/POLYMYXIN/BACITRACIN OINTMENT 15 GM TUBE 1 APPLIC TOPICAL (09:59)
[2022-01-29] MEDS: oxyCODONE/ACETAMINOPHEN (*CRX) 5-325 MG TABLET 1 TABLET PO ×2 (10:02→17:16)
[2022-01-29] MEDS: oxyCODONE HCL (*CRX) 2.5 MG TAB IR PO ×2 (10:02→17:16)
[2022-01-29 11:40] LABS: Glucose Point of Care 213 mg/dl (65-105)
[2022-01-29] MEDS: INSULIN ASPART (*BKC) 100 UNITS/ML SUB-Q (12:53)
[2022-01-29 14:00] VITALS: BP 103/62; PULSE 68; RESP 14; TEMP 37; O2SAT 98
--- NOTE | 2022-01-29 14:27 | PM.DS ---
DS: Admitting Diagnosis Discharge Date 01/29/2022 Admitting Diagnosis renal failure DS: Discharge Diagnosis Discharge Diagnosis (1) CINDY (acute kidney injury): Code(s): N17.9 - Acute kidney failure, unspecified Status: Acute (2) Hypertension: Code(s): I10 - Essential (primary) hypertension Status: Chronic (3) Hyperkalemia: Code(s): E87.5 - Hyperkalemia Status: Acute (4) Diabetes: Code(s): E11.9 - Type 2 diabetes mellitus without complications Status: Chronic (5) Depression: Code(s): F32.9 - Major depressive disorder, single episode, unspecified Status: Acute (6) Diastolic heart failure: Code(s): I50.30 - Unspecified diastolic (congestive) heart failure Status: Acute (7) GERD (gastroesophageal reflux disease): Code(s): K21.9 - Gastro-esophageal reflux disease without esophagitis Status: Acute (8) Altered mental status: Code(s): R41.82 - Altered mental status, unspecified Status: Acute (9) Stercoral colitis: Code(s): K52.89 - Other specified noninfective gastroenteritis and colitis Status: Acute DS: Summary Hospital Course Hospital Course: # CINDY: Creatinine on admission 5.9. Baseline creatinine 1. Appreciate nephrology consultation, hold all nephrotoxic agents, trial of IV fluids, unsure of etiology of renal injury, suspect ATN compounded by obstructive uropathy Renal ultrasound shows normal kidneys without hydronephrosis but does indicate diffuse wall thickening of the bladder possibly from cystitis versus chronic outlet obstruction Monitor urine output closely Creatinine continues to improve, baseline creatinine 1 from 2020 # hypertension: Controlled with Norvasc and metoprolol . Lisinopril and Lasix on hold # hyperkalemia: Resolved # type 2 diabetes mellitus: Continue Lantus, and SSI Cheks with sliding scale insulin . Discontinue metformin at discharge due to poor renal function hemoglobin A1c at 8.3 # depression: Continue trazodone # diastolic heart failure: Monitor fluid status closely Echo showed an EF of greater than 70%, grade 2 diastolic dysfunction, no significant valvular disease or pulmonary hypertension seen # GERD: Continue H2 vic + PPI # altered mental status: Resolved MRI shows no acute changes, carotid ultrasound shows 50-69% stenosis of bilateral internal carotid arteries # stercoral colitis: cont bowel regimen #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 #DVT prophylaxis with heparin #GI prophylaxis with PPI #Code status DNR Time Spent with Patient Time attestation: Total time spent providing and/or coordinating discharge services: 50 minutes Exam Narrative: General: No acute distress, alert and oriented per baseline HEENT: Atraumatic, normocephalic, mucous membranes moist CV: Regular rate and rhythm, S1, S2 Lungs: Clear to auscultation bilaterally, no rales or crackles noted, no wheezes, good air entry Abdomen: Soft, nontender, nondistended Extremities: Normal to inspection Paraplegic at baseline Skin: No rashes noted, no lesions or wounds seen Psych: Euthymic, normal affect DS: Data Data Completed and Pending Completed studies during hospitalization: Exam Type: ? ? CA echo doppler color flow Study Info Indications ?? ? - CVA Complete two-dimensional, color flow and Doppler transthoracic echocardiogram is performed. Account #: ? ? [id number] Summary ? 1. Complete two-dimensional, color flow and Doppler transthoracic echocardiogram is performed. ? 2. Normal left ventricular size with mild concentric left ventricular hypertrophy.? Good systolic function of all segments with ejection fraction greater than 70%.? Grade 2 diastolic dysfunction is present. ? 3. No significant valve disease. ? 4. Normal sinus rhythm. Lef
[2022-01-29 15:44] LABS: EDCOVIDSCREEN Negative (Negative)
[2022-01-29 16:36] LABS: Glucose Point of Care 186 mg/dl (65-105)
[2022-01-29 21:38] LABS: ANCA Screen Negative (Negative)
== END 2022-01-29 18:55 | DRG 469 ==
LOC: ANHED 07:33 → ANH3MEDSUR 08:03
PROVIDERS: Internal Medicine Nephrology; Nurse Practitioner; Student in an Organized Health Care Education/Training Program; Admitting Provider Hospitalist; Emergency Provider Preventive Medicine Aerospace Medicine; PCP Internal Medicine; Visit Provider Internal Medicine
DX: N17.0 Acute kidney failure with tubular necrosis (principal); E87.5 Hyperkalemia; I31.9 Disease of pericardium, unspecified; G82.20 Paraplegia, unspecified; I50.32 Chronic diastolic (congestive) heart failure; R33.9 Retention of urine, unspecified; Z20.822 Contact with and (suspected) exposure to COVID-19; E11.9 Type 2 diabetes mellitus without complications; F32.9 Major depressive disorder, single episode, unspecified; D21.9 Benign neoplasm of connective and other soft tissue, unspecified; K21.9 Gastro-esophageal reflux disease without esophagitis; K52.89 Other specified noninfective gastroenteritis and colitis; I10 Essential (primary) hypertension; G60.8 Other hereditary and idiopathic neuropathies; F17.210 Nicotine dependence, cigarettes, uncomplicated; Z86.73 Personal history of transient ischemic attack (TIA), and cerebral infarction without residual deficits
CPT/HCPCS: 36415; 36600; 51701; 70450; 70551; 71045; 74018; 74176; 76775; 78707; 80048; 80053; 80069; 80307; 81001; 81050; 82436; 82550; 82570; 82805; 82948; 83036; 83520; 83605; 83735; 83874; 83883; 84100; 84155; 84156; 84165; 84166; 84300; 84439; 84443; 84480; 84484; 84540; 85025; 85999; 86036; 86038; 86160; 86225; 86704; 86706; 87340; 87426; 87502; 92523; 92611; 93005; 93306; 93880; 94002; 94640; 94660; 94762; 96360; 96361; 99285; A9270; A9562; C9113; C9803; G0378; G0379; J0131; J1644; J1815; J2270; J7030; U0003; U0005

== ENCOUNTER 2022-06-11 21:34 | Emergency (ER) | payer OTHER, SELFPAY ==
[2022-06-11] VITALS (9 sets, daily range): BP systolic 168–183; BP diastolic 87–91; PULSE 73–99; RESP 17–23; TEMP 37.3; O2SAT 94–100
--- NOTE | ~2022-06-11 | CT_ITS ---
CT of the Abdomen and Pelvis: Indication: Abdominal pain Technique: 2.5 mm axial scans were obtained through the abdomen and pelvis following intravenous adm inistration of 100 cc of Omnipaque 350. Dose reduction technique was used on this scan by utilizing a utomated exposure control and iterative reconstruction technique. The dose-length product (DLP) was 1 113.90 mGy-cm. COMPARISON: 01/20/2022 Findings: Scans through the lung bases are unremarkable. The liver, spleen, pancreas, gallbladder, adrenals and kidneys are within normal limits. No evidence of aortic aneurysm. No lymphadenopathy. There are atherosclerotic calcifications of the aorta. No bowel obstruction or bowel wall thickening. There is no evidence to suggest acute appendicitis. Th ere is enlargement of stool the rectum, with additional stool in the descending and sigmoid colon. Sc attered colonic diverticulosis noted. Images through the pelvis were performed. Urinary bladder unremarkable. Prostate gland and seminal ve sicles are unremarkable. No ascites. Impression: Findings consistent with fecal impaction and constipation. No other significant findings. Reviewed, dictated and finalized at location . UP ADMINISTRATOR Impression: Findings consistent with fecal impaction and constipation. No other significant findings.
--- NOTE | ~2022-06-11 | XR_ITS ---
EXAMINATION: XR chest 1V portable INDICATION: Abdominal pain TECHNIQUE: Portable AP chest at 2227 hours COMPARISON: 01/23/2022 FINDINGS: The lungs are free of acute opacities. No pleural effusion or pneumothorax. The cardiomedia stinal silhouette is normal. IMPRESSION: 1. No acute cardiopulmonary abnormality. Reviewed, dictated and finalized at location F. KROOM WORKER
--- NOTE | 2022-06-11 22:19 | ED.NAVMDI ---
HPI - Nausea/Vomiting/Diarrhea General Chief complaint: Nausea/Vomiting/Diarrhea Stated complaint: nausea/vomiting Time Seen by Provider: 06/11/22 22:04 Related Data Home Medications Medication Instructions Recorded Confirmed amino acids-protein hydrolysate 17 1 ea PO DAILY 01/20/22 01/20/22 gram-100 kcal/30 mL oral liquid (Pro-Stat AWC) amlodipine 10 mg tablet 10 mg PO DAILY 01/20/22 01/20/22 ascorbic acid (vitamin C) 1,000 mg 500 mg PO BID 01/20/22 01/20/22 tablet aspirin 81 mg capsule 81 mg PO DAILY 01/20/22 01/20/22 atorvastatin 80 mg tablet 80 mg PO HS 01/20/22 01/20/22 baclofen 10 mg tablet 10 mg PO TID 01/20/22 01/20/22 cetirizine 10 mg tablet (Zyrtec) 10 mg PO HS 01/20/22 01/20/22 clopidogrel 75 mg tablet 75 mg PO DAILY 01/20/22 01/20/22 docusate sodium 100 mg capsule 100 mg PO BID 01/20/22 01/20/22 ergocalciferol (vitamin D2) 1,000 4,000 unit PO DAILY 01/20/22 01/20/22 unit capsule escitalopram oxalate 10 mg tablet 10 mg PO DAILY 01/20/22 01/20/22 famotidine 20 mg tablet (Pepcid) 20 mg PO DAILY 01/20/22 01/20/22 gabapentin 800 mg tablet 800 mg PO TID 01/20/22 01/20/22 glucagon 1 mg injection kit 1 mg IM PRN PRN Hypoglycemia 01/20/22 01/20/22 lidocaine 4 % topical cream 1 applic topical TID 01/20/22 01/20/22 lidocaine 5 % topical patch 2 patch topical DAILY 01/20/22 01/20/22 metoprolol tartrate 25 mg tablet 12.5 mg PO DAILY 01/20/22 01/20/22 multivit with minerals-iron 18 1 tablet PO DAILY 01/20/22 01/20/22 mg-folic ac 400 mcg-vit K 25 mcg tablet (Adults Multivitamin) ondansetron HCl 4 mg tablet 4 mg PO Q12H PRN Nausea 01/20/22 01/20/22 oxycodone-acetaminophen 7.5 mg-325 1 tablet PO BID 01/20/22 01/20/22 mg tablet polyethylene glycol 3350 17 gram 17 g PO DAILY PRN Constipation 01/20/22 01/20/22 oral powder packet (Miralax) sennosides 8.6 mg capsule (senna) 25.8 mg PO BID 01/20/22 01/20/22 trazodone 50 mg tablet 50 mg PO HS 01/20/22 01/20/22 Allergies Allergy/AdvReac Type Severity Reaction Status Date / Time No Known Allergies Allergy Unverified 10/15/16 15:33 [facility] Past Medical History Medical History (Updated 01/29/22 @ 14:32 by Chaparro Rock MD) Depression Diabetes mellitus Diastolic heart failure GERD (gastroesophageal reflux disease) History of CVA (cerebrovascular accident) Hypertension Idiopathic peripheral autonomic neuropathy Paraplegia Surgical History Surgical History (Updated 08/08/20 @ 19:33 by Jeanette Cazares MD) H/O neck surgery Family History Family History (Updated 01/20/22 @ 14:16 by Tori Sotelo NP) Unknown Unknown family medical history Social History Social History (Updated 01/20/22 @ 14:19 by Tori Sotelo NP) Social History: Sandee Rodriguez is listed as his spouse. The patient is listed as disabled. Patient's drug screen was positive for cannabis. He tells me that he smokes a pack a cigarettes a day. He is not interested in smoking cessation. The patient stated that he has 3 children. residential paper state that the patient is a DNR. Smoking status: Current every day smoker Substance use type: marijuana Other substance usage details: + on admit screen Spiritual care concerns: No Course Vital Signs Vital signs: Vital Signs Temperature 99.1 F 06/11/22 21:39 Pulse Rate 75 06/11/22 21:39 Respiratory Rate 20 06/11/22 21:39 Blood Pressure 183/91 H 06/11/22 21:39 Pulse Oximetry 94 06/11/22 21:39 Temperature 99.1 F 06/11/22 21:39 Pulse Rate 75 06/11/22 21:39 Respiratory Rate 20 06/11/22 21:39 Blood Pressure 183/91 H 06/11/22 21:39 Pulse Oximetry 94 03/02/23 21:39 Discharge Plan Discharge Prescriptions: No Action atorvastatin 80 mg tablet 80 mg PO HS ascorbic acid (vitamin C) 1,000 mg Tablet 500 mg PO BID trazodone 50 mg tablet 50 mg PO HS polyethylene glycol 3350 [Miralax] 17 gram Powder In Packet 17 g PO DAILY PRN (Reason: Constipation)
--- NOTE | 2022-06-11 22:19 | ED.NAVMDI ---
HPI - Nausea/Vomiting/Diarrhea General Chief complaint: Nausea/Vomiting/Diarrhea <Marcelle Doyle PA-C - Last Filed: 06/13/22 04:12> Stated complaint: nausea/vomiting <Marcelle Doyle PA-C - Last Filed: 06/13/22 04:12> Time Seen by Provider: 06/11/22 22:04 <Marcelle Doyle PA-C - Last Filed: 06/13/22 04:12> History of Present Illness HPI Narrative: 56-year-old male with a history of diabetes, diastolic heart failure, GERD, history of CVA, hypertension, paraplegia and idiopathic peripheral autonomic neuropathy reports for periumbilical abdominal pain and vomiting for the past 2 days. Patient states he has vomited around 20 episodes total. Reports 1 episode of diarrhea. Patient states he was kicked out of [facility] over a week ago for attitude problems . Patient states he then went to [facility] [place] for psychiatric evaluation for 1 week. Reports he was discharged 2 days ago and never filled his prescriptions and at the pharmacy, therefore has not taken any of his at-home medications in 2 days. Patient states since he was discharged, he has been residing at his home with his neice and developed abdominal pain and vomiting. Patient reports pain all over since he has not been taking his gabapentin. Denies fever, urinary complaints, new onset focal numbness or weakness, cough or congestion. Denies hemoptysis, hematochezia, melena, coffee-ground emesis. Patient reports he smokes marijuana. Denies other drug use. Patient is a paraplegic. He reports he has not been able to use his left leg in many years and has limited range of motion and strength in his bilateral upper extremities after he had a neck surgery. States he ambulates with a wheelchair. Reports he has been told he has difficulty emptying his bladder and has had recurrent UTIs. <Marcelle Doyle PA-C - Last Filed: 06/13/22 04:12> Related Data Home medications: Home Medications Medication Instructions Recorded Confirmed amino acids-protein hydrolysate 17 1 ea PO DAILY 01/20/22 01/20/22 gram-100 kcal/30 mL oral liquid (Pro-Stat AWC) amlodipine 10 mg tablet 10 mg PO DAILY 01/20/22 01/20/22 ascorbic acid (vitamin C) 1,000 mg 500 mg PO BID 01/20/22 01/20/22 tablet aspirin 81 mg capsule 81 mg PO DAILY 01/20/22 01/20/22 atorvastatin 80 mg tablet 80 mg PO HS 01/20/22 01/20/22 baclofen 10 mg tablet 10 mg PO TID 01/20/22 01/20/22 cetirizine 10 mg tablet (Zyrtec) 10 mg PO HS 01/20/22 01/20/22 clopidogrel 75 mg tablet 75 mg PO DAILY 01/20/22 01/20/22 docusate sodium 100 mg capsule 100 mg PO BID 01/20/22 01/20/22 ergocalciferol (vitamin D2) 1,000 4,000 unit PO DAILY 01/20/22 01/20/22 unit capsule escitalopram oxalate 10 mg tablet 10 mg PO DAILY 01/20/22 01/20/22 famotidine 20 mg tablet (Pepcid) 20 mg PO DAILY 01/20/22 01/20/22 gabapentin 800 mg tablet 800 mg PO TID 01/20/22 01/20/22 glucagon 1 mg injection kit 1 mg IM PRN PRN Hypoglycemia 01/20/22 01/20/22 lidocaine 4 % topical cream 1 applic topical TID 01/20/22 01/20/22 lidocaine 5 % topical patch 2 patch topical DAILY 01/20/22 01/20/22 metoprolol tartrate 25 mg tablet 12.5 mg PO DAILY 01/20/22 01/20/22 multivit with minerals-iron 18 1 tablet PO DAILY 01/20/22 01/20/22 mg-folic ac 400 mcg-vit K 25 mcg tablet (Adults Multivitamin) ondansetron HCl 4 mg tablet 4 mg PO Q12H PRN Nausea 01/20/22 01/20/22 oxycodone-acetaminophen 7.5 mg-325 1 tablet PO BID 01/20/22 01/20/22 mg tablet polyethylene glycol 3350 17 gram 17 g PO DAILY PRN Constipation 01/20/22 01/20/22 oral powder packet (Miralax) sennosides 8.6 mg capsule (senna) 25.8 mg PO BID 01/20/22 01/20/22 trazodone 50 mg tablet 50 mg PO HS 01/20/22 01/20/22 <Marcelle Doyle PA-C - Last Filed: 06/13/22 04:12> Allergies/Adverse reactions: Allergies Allergy/AdvReac Type Severity Reaction Status Date / Time No Known Allergies Allergy Unverified 10/15/16 15:33 <Marcelle Doyle PA-C - Last Filed: 03
[2022-06-11] MEDS: ONDANSETRON INJ 4 MG/2 ML VIAL IV PUSH (22:42)
[2022-06-11] MEDS: SODIUM CHLORIDE 0.9% IV 1,000 ML 999 ML IV CONT (22:44)
[2022-06-11 22:45] LABS: Basophils Percent Auto 0.1 % (0.2-1.2); Eosinophils Percent Auto 0.1 % (0-4.4); Hematocrit 39.3 % (42.0-52.0); Hemoglobin 12.6 g/dL (14.0-18.0); Immature Granulocyte Absolute 0.06 K/mm3 (0.00-0.031); Immature Granulocyte Percent A 0.4 % (0-0.5); Lymphocytes Absolute Auto 1.67 K/mm3 (0.9-3.2); Mean Corpuscular HGB Conc 32.1 g/dl (32-36); Mean Corpuscular Hemoglobin 27.3 pg (26-34); Mean Corpuscular Volume 85.2 fl (80-100); Mean Platelet Volume 10.6 fl (7.4-10.4); Monocytes Absolute Auto 0.7 K/mm3 (0.1-0.6); Monocytes Percent Auto 4.7 % (2.6-8.5); Neutrophils Absolute Auto 11.5 K/mm3 (1.3-6.7); Neutrophils Percent Auto 82.7 % (45.5-73.1); Platelet Count Result 314 k/mm3 (150-375); Red Blood Count 4.61 M/mm3 (4.6-6.20); Red Cell Distribution Width 15.3 % (11.5-14.5)
[2022-06-11 22:56] LABS: Alanine Aminotransferase 18 U/L (6-50); Albumin Level 4.4 g/dL (3.5-5.1); Alkaline Phosphatase 126 U/L (38-126); Anion Gap 10 mmol/L (8-16); Aspartate Amino Transferase 23 U/L (17-59); Bilirubin,Total 0.7 mg/dL (0.2-1.3); Blood Urea Nitrogen 16 mg/dL (9-20); Calcium 9.2 mg/dL (8.4-10.2); Carbon Dioxide 28 mmol/L (22-30); Chloride 103 mmol/L (98-107); Estimated CRCL calculation 96 ml/min; Estimated Glomerular Filt Rate > 60; Glucose 206 mg/dL (65-110); Lipase 15 U/L (23-300); Potassium 3.5 mmol/L (3.4-5.0); Sodium 141 mmol/L (137-145)
--- NOTE | 2022-06-11 23:07 | PC.NURSE ---
Patient report given to SHRUTHI Joshua. All questions answered and care of patient transferred.
--- NOTE | 2022-06-11 23:39 | PC.NURSE ---
Pt refused straight catheter at this time
[2022-06-12 00:05] VITALS: BP 161/89; PULSE 93; RESP 16; O2SAT 100
[2022-06-12] MEDS: ONDANSETRON INJ 4 MG/2 ML VIAL IV PUSH (00:16)
[2022-06-12 01:54] VITALS: BP 155/72; PULSE 74; RESP 18
[2022-06-12 03:47] LABS: Appearance Urine Clear (Clear); Bacteria Urine None Seen /hpf; Bilirubin Urine Negative (Negative); Blood Urine Trace (Negative); Color Urine Yellow (Yellow); Glucose Urine UA Negative (Negative); Ketones Urine 2+ mg/dL (Negative); Leukocyte Esterase Ur Trace LEU/UL (Negative); Nitrate Urine Negative (Negative); Non Pathogenic Casts 0-2; Protein Urine 2+ mg/dL (Negative); Squamous Epithelial Cell Urine Occasional /hpf (Few); WBC Urine 21-50 /hpf
[2022-06-12 03:53] LABS: Specific Grav Ur 1.066 (1.001-1.035)
[2022-06-12 03:54] LABS: Add Urine Microscopic? YES
--- NOTE | 2022-06-12 08:58 | PCCCNOTE ---
met with patient bedside, patient is alert and oriented x 4. patient asked CC if could arrange his electric scooter being delivered to his home from [facility]. Patient does not want to return to assisted. CC called and spoke with Yudelka at [facility] and she is planning to have that done today. CC notified chargeback specialist in ED of that plan. patient will discharge home via ambulance. CC will continue to follow for any other needs that may arise.
[2022-06-12 10:53] VITALS: BP 130/61; PULSE 72; RESP 12; TEMP 36.9; O2SAT 98
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
[2022-06-12 23:58] LABS: Toxigenic C. Diff POSITIVE (NEGATIVE)
== END 2022-06-12 15:00 | disposition home or self-care (01) ==
PROVIDERS: Physician Assistant; Emergency Provider Emergency Medicine; PCP Internal Medicine
DX: G89.29 Other chronic pain (principal); G82.20 Paraplegia, unspecified; E11.42 Type 2 diabetes mellitus with diabetic polyneuropathy; I11.0 Hypertensive heart disease with heart failure; I50.30 Unspecified diastolic (congestive) heart failure; K21.9 Gastro-esophageal reflux disease without esophagitis; F32.A Depression, unspecified; F12.90 Cannabis use, unspecified, uncomplicated; Z86.73 Personal history of transient ischemic attack (TIA), and cerebral infarction without residual deficits; Z79.4 Long term (current) use of insulin; Z79.891 Long term (current) use of opiate analgesic; Z79.82 Long term (current) use of aspirin; Z79.02 Long term (current) use of antithrombotics/antiplatelets
CPT/HCPCS: 36415; 71045; 74177; 80053; 81001; 83690; 85025; 87045; 87086; 87088; 87427; 87493; 89055; 96361; 96374; 99284; J2405; J7030; Q9967

== ENCOUNTER 2022-12-01 10:39 | Emergency (ER) | payer OTHER, SELFPAY ==
[2022-12-01 11:01] VITALS: BP 110/52; PULSE 72; RESP 14; TEMP 37.1; O2SAT 97
[2022-12-01 13:04] VITALS: BP 92/61; PULSE 59; RESP 13; O2SAT 100
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
[2022-12-01] MEDS: HYDROmorphone HCL INJ (*CRX) 1 MG/ML SYR IM (14:48)
[2022-12-01] MEDS: ONDANSETRON HCL ODT 4 MG TABLET PO (14:48)
[2022-12-01 14:54] VITALS: BP 104/66; PULSE 65; RESP 13; O2SAT 100
--- NOTE | 2022-12-01 14:59 | PC.NURSE ---
Pt pedal pulses intact BL
[2022-12-01 17:30] VITALS: BP 84/58; PULSE 59; RESP 11; O2SAT 100
== END 2022-12-01 17:42 ==
PROVIDERS: Emergency Provider Emergency Medicine; PCP Internal Medicine
DX: E11.43 Type 2 diabetes mellitus with diabetic autonomic (poly)neuropathy (principal); L73.9 Follicular disorder, unspecified; I11.0 Hypertensive heart disease with heart failure; I50.30 Unspecified diastolic (congestive) heart failure; G82.20 Paraplegia, unspecified; K21.9 Gastro-esophageal reflux disease without esophagitis; M21.371 Foot drop, right foot; F32.A Depression, unspecified; F17.210 Nicotine dependence, cigarettes, uncomplicated; Z66 Do not resuscitate; Z86.73 Personal history of transient ischemic attack (TIA), and cerebral infarction without residual deficits; Z79.4 Long term (current) use of insulin
CPT/HCPCS: 96372; 99283; A9270; J1170